=== PATIENT | female | born 1935 | race Caucasian/White ===

== ENCOUNTER 2017-03-09 06:43 | Observation (INO) | payer MEDICARE ==
[2017-03-09] MEDS ORDERED: Acetaminophen/Codeine 30-300mg Tablet ONE (07:34)
[2017-03-09] MEDS ORDERED: hydrALAZINE 20 MG/ML VIAL ONE (07:34)
[2017-03-09] MEDS ORDERED: Ondansetron HCl/PF 4 MG/2 ML Vial ONE (07:34)
[2017-03-09] MEDS ORDERED: diphenhydrAMINE 50 MG/ML VIAL ONE (08:34)
[2017-03-09 09:14] LABS: Troponin I Less than 0.010 ng/mL (< 0.028)
[2017-03-09] MEDS ORDERED: Nitroglycerin 0.4 MG TAB (25 Tab Bottle) SL PRN (10:56)
[2017-03-09] MEDS ORDERED: hydrALAZINE 20 MG/ML VIAL SLOW IVP PRN (10:56)
[2017-03-09] MEDS ORDERED: Calcium Carbonate 500 MG ChewTAB PO PRN (10:56)
[2017-03-09] MEDS ORDERED: cloNIDine 0.1 MG TAB PO PRN (10:56)
[2017-03-09] MEDS ORDERED: Benzonatate 100 MG CAP PO PRN (10:56)
[2017-03-09] MEDS ORDERED: Senokot 8.6 MG TAB PO PRN ×2 (10:56)
[2017-03-09] MEDS ORDERED: Bisacodyl 5 MG TAB PO PRN ×2 (10:56)
[2017-03-09] MEDS ORDERED: Mag-Al 1200 mg/1200 mg/30 ML UDCUP PO PRN (10:56)
[2017-03-09] MEDS ORDERED: Acetaminophen 325 MG TAB PO PRN (10:56)
[2017-03-09] MEDS ORDERED: Diabetic Tussin 200 MG/10 ML UDCUP PO PRN (10:56)
[2017-03-09] MEDS ORDERED: Lorazepam 1 MG TAB PO PRN (10:56)
[2017-03-09] MEDS ORDERED: Loratadine 10 MG TAB PO PRN (10:56)
[2017-03-09] MEDS ORDERED: Cyclobenzaprine 10 MG TAB PO SCH (11:30)
[2017-03-09] MEDS ORDERED: Sodium Chloride 0.9% 1,000 ML IV SCH (11:45)
[2017-03-09 11:51] VITALS: BMI 22.5
[2017-03-09] MEDS ORDERED: tiZANidine HCl 4 MG TAB PO PRN (11:55)
[2017-03-09 12:08] LABS: Iron 20 ug/dL (50-170)
[2017-03-09 12:11] LABS: Troponin I Less than 0.010 ng/mL (< 0.028)
[2017-03-09 12:24] LABS: Bilirubin Negative (Negative); Blood, Urine Small (Negative); Glucose, Urine (Dipstick) Negative (Negative); Ketone, Urine Negative (Negative); Nitrite Negative (Negative); Protein, Urine (Dipstick) 30 mg/dL (Neg-Trace); Urobilinogen 0.2 mg/dL (0.2-1.0)
[2017-03-09 12:26] LABS: Bacteria/HPF None Seen HPF (None Seen); Hyaline Casts/LPF 4-6 HYALINE CAST LPF (0-3 Hyaline); RBC/HPF 21-50 HPF (0-3); Squamous Epithelial 0-3 HPF (0-3); WBC/HPF 0-3 HPF (0-3)
--- NOTE | 2017-03-09 14:19 | HP ---
DATE OF ADMISSION: 03/09/2017 PRIMARY CARE PHYSICIAN: Dr. Masood Murphy. PRIMARY MARINE FARMER: Dr. Reddy. CHIEF COMPLAINT: Chest pain, lower back pain and leg discomfort on the right side for about 1 month . HISTORY OF PRESENTING ILLNESS: Ms. Mckinley is a 81-year-old female with past medical history of co ronary artery disease, peripheral vascular disease, chronic back pain and ongoing tobacco abuse marci g with hypertension, who presented to the emergency room with the above-mentioned complaints. Histo ry is mainly obtained by the patient herself and electronic medical records have been reviewed. Vito e has been discussed with the admitting ER physician, Dr. Lopez. The patient was last admitted t o a facility earlier this year in 09/2016, at which time she underwent placement of LINQ cardiac mon itor for complaints of syncope. The patient reports that for the last month or so she has been having on and off sharp chest pain, w hich are very severe. She reports it as a stabbing pain located in the center of her left chest wit hout any radiation. It is not associated with any shortness of breath, diaphoresis. It is nonradia ting. Nitroglycerin seems to help with the pain. She is also getting worsening of her chronic lowe r back pain and leg cramps with this pain. She presented to [facility] with this c hest pain today. The patient is somewhat of a poor historian and is rather uncomfortable with leg s pasms at this time to provide much of other history. However, she denies any recent illnesses. She continues to smoke one pack of cigarettes per day and reports some nonproductive cough. In the emergency room, her cardiac enzymes were unremarkable as well as her 12-lead EKG. She receiv ed nitroglycerin and aspirin in the Emergency Room and was transferred to our facility for further e valuation and care. Now, she is being admitted for rule out ACS. The patient had one episode of vo miting in the emergency room. She does report poor appetite, but no abdominal symptoms at home. Sh e reports compliance to her medications. PAST MEDICAL HISTORY: 1. History of coronary artery disease, status post RCA stenting in 11/2015. 2. History of angina. 3. History of chronic diastolic congestive heart failure. 4. History of recurrent fall. 5. Tobacco abuse. 6. Hypertension. PAST SURGICAL HISTORY: Appendectomy, hysterectomy, bilateral hip surgery. PSYCHIATRIC HISTORY: Anxiety. SOCIAL HISTORY: She lives alone, but her son lives close by. She continues to smoke one pack of ci garettes per day. No history of drug or alcohol abuse. FAMILY HISTORY: She denies any history of coronary artery disease or stroke running in her family. CURRENT MEDICATIONS: As listed per the ER record include Plavix 75 mg daily, metoprolol tartrate 12 .5 mg b.i.d., aspirin 81 mg daily, Protonix 40 mg daily, atorvastatin 10 mg daily, gabapentin 300 mg daily, triamterene /hydrochlorothiazide 37.5/25 mg daily, and sublingual nitroglycerin every 5 soledad gem as needed. ALLERGIES: Include ALENDRONATE, CELEXA, SULFONAMIDE, TRAMADOL, VITAMIN D3. REVIEW OF SYSTEMS: The following complete review of systems was negative, unless otherwise mentione d in the HPI or below: CONSTITUTIONAL: Weight loss or gain, ability to conduct usual activities. SKIN: Rash, itching. EYES: Double vision, pain. ENT/MOUTH: Nose bleeding, neck stiffness, pain, tenderness. CARDIOVASCULAR: Palpitations, dyspnea on exertion, orthopnea. RESPIRATORY: Shortness of breath, wheezing, cough, hemoptysis, fever or night sweats. GASTROINTESTINAL: Poor appetite, abdominal pain, heartburn, nausea, vomiting, constipation, or diar holland. GENITOURINARY: Urgency, frequency, dysuria, nocturia. MUSCULOSKELETAL: Pain, swelling. NEUROLOGIC/PSYCHIATRIC: Anxiety, depression. ALLERGY/IMMUNOLOGIC: Skin rash, bleeding tendency. It is negative except for those mentioned in the history and physical. LABORATORY DATA: Her CBC shows WBCs at 6.3 with platelet count of 252, hemoglobin 9.2, which is lar kilo microcystic. Serum chemistry shows sodium at 125, chloride 93, bicarbonate 16, BUN 22, creatin ine 1.19, blood sugar is 110, CK-MB is 4.4 and troponin is less than 0.010 x2. BNP is 102. Chest x -ray by my review was negative for any pleural effusion or infiltrate or edema. A 12-lead EKG showed normal sinus rhythm at 77 beats per minute with normal ST segments and normal T waves. PHYSICAL EXAMINATION: VITAL SIGNS: Most recent include blood pressure 176/74, pulse of 92, respirations 18, temperature 9 7.9, saturating 94% on room air, blood pressure upon presentation was elevated to 203/87. GENERAL: The patient is very uncomfortable. She is fidgety and rubbing her right side nonstop. Sh rajat is awake, alert, oriented x3, in no acute distress. HEENT: Mucous membranes slightly dry. No oropharyngeal exudate or erythema. Head is normocephalic , atraumatic. Pupils equal, reactive to light and accommodation. Extraocular movements intact. NECK: Supple without any lymphadenopathy, JVD or bruit. CHEST: Clear to auscultation without any wheezing, rales or rhonchi. CARDIOVASCULAR: Rate and rhythm is regular without any murmur, rubs or gallops. ABDOMEN: Soft, nontender, nondistended with positive bowel sounds. EXTREMITIES: Free of any cyanosis, clubbing, or edema. Her right thigh examination is unremarkable . No swelling, no erythema, no warmth. She reports that her symptoms get better when she walks. N o muscle twitching or myoclonus noticed. NEUROLOGIC: Nonfocal. PSYCHIATRIC: Anxiety noticed. SKIN: Free of any rashes or bruises. Feels warm and dry to touch. VASCULAR: +2 pedal pulses felt bilaterally. IMPRESSION AND PLAN: 1. Chest pain. Given the patient's history of coronary artery disease, we will admit her to teleme try unit. We will order a stress test for her. Her last stress test is unknown. Continue to trend serial cardiac enzymes. Continue Plavix and add full dose aspirin for now. We will continue her b eta yesenia as well. The patient will be benefited by starting BRISEIDA inhibitor. We will not do so at this time given acute renal insufficiency. 2. Hyponatremia. This is likely hypovolemic hyponatremia along with the use of hydrochlorothiazide . We will hold HCTZ and triamterene for now and resuscitate her with gentle IV fluid hydration with a maximum rate of sodium correction at 10 mEq per day. We will also check serum and urine osmolali ty and consult Nephrology to follow along. 3. Acute renal insufficiency. It is likely secondary to poor p.o. intake as the patient has been r ather sick last few days. We will provide her with IV fluids and monitor her renal function closely . Avoid diuretics at this time and any other nephrotoxic medications. Once again, we are consultin g Nephrology for further recommendations. 4. Uncontrolled hypertension. We will resume her home medications with the exception of diuretics and add p.r.n. medications. We will try to optimize her blood pressure for improvement of her sympt oms. 5. Dyslipidemia. Continue with atorvastatin. 6. History of chronic diastolic congestive heart failure. The patient at this time actually appear s hypovolemic. We will provide her with IV fluids and monitor fluid status closely. Her last echoc ardiogram was done last year, which showed grade I/III diastolic dysfunction with adequate ejection fraction. 7. Myalgia. Check her and rule out for influenza and we will add a muscle relaxant trial. Also, s he seems to have significant iron deficiency anemia, which can be exacerbating her symptoms. We janel l check iron levels and supplement with IV iron as necessary. 8. Tobacco abuse. The patient has been counseled. We will start her nicotine patch while she is i n the hospital. 9. Chronic low back pain. 10. Code status: FULL CODE. Discussed with the patient. DISPOSITION: The patient is currently being admitted to the hospital for rule out ACS as well as ac hoopa renal insufficiency and hyponatremia. She will be monitored on telemetry unit. Further managem ent will depend upon her clinical course. She is currently observation status.
[2017-03-09 14:52] LABS: Troponin I Less than 0.010 ng/mL (< 0.028)
[2017-03-09] MEDS ORDERED: Atorvastatin Calcium 10 MG TAB PO SCH (21:00)
[2017-03-09] MEDS: Famotidine 20 MG TAB PO SCH (21:20)
[2017-03-09] MEDS: Metoprolol Tartrate 25 MG TAB PO SCH (21:20)
[2017-03-09] MEDS: Gabapentin 300 MG CAP PO SCH (21:20)
[2017-03-10 05:32] LABS: #Basophils 0.1 thou/uL (0.0-0.2); #Eosinphils 0.1 thou/uL (0.0-0.7); #Lymphocytes 1.2 thou/uL (1.20-3.40); #Monocytes 0.4 thou/uL (0.11-0.59); #Neutrophils 3.9 thou/uL (1.40-6.50); %Basophils 0.9 % (0.0-1.0); %Eosinophils 0.9 % (0.0-10.0); %Monocytes 6.9 % (0.0-10.0); Hematocrit 26.8 % (36.0-47.0); Red Blood Cell (RBC) Count 3.37 mill/uL (4.20-5.40); White Blood Cell (WBC) Count 5.6 thou/uL (4.8-10.8)
[2017-03-10 06:03] LABS: Anion Gap 12 mmol/L (10-20); BUN (Urea Nitrogen) 12 mg/dL (9.8-20.1); Calc. Creatinine Clearance 52 mL/min (70-130); Calcium 8.6 mg/dL (7.8-10.44); Carbon Dioxide 22 mmol/L (23-31); Chloride 99 mmol/L (98-107); Estimated GFR-MDRD 63
--- NOTE | 2017-03-10 07:00 | CON ---
DATE OF CONSULTATION: 03/09/2017 CONSULTING PHYSICIAN: Rhonda Cardona M.D. REQUESTING PHYSICIAN: Sydney Martinez MD REASON FOR CONSULTATION: Hyponatremia. IMPRESSION: Hyponatremia. This is likely multifactorial including, but not limited to the followin g potential etiologies: A. Syndrome of inappropriate antidiuretic hormone secretion given the chemistry of . B. Potential effect of hydrochlorothiazide compounding the syndrome of inappropriate antidiuretic h ormone in this patient. C. Possible component of intravascular depletion in the context of , syndrome of inappro priate antidiuretic hormone. PLAN: 1. Discontinue IV fluid. 2. Free water restriction. 3. Would this patient's diet in order to increase osmolar intake by mouth; therefore, the pat ient is to receive a high protein diet. 4. If the patient's sodium level begins to decrease any further, administration, but at this point, no indication for such at this point. 5. If the patient's SIADH does not respond to conservative management, further imaging studies of t he chest could be carried out to rule out any potential abnormal lesions/ . HISTORY: This is a 81-year-old female patient transferred over to us at [facility] with the compl aint of chest pain and was noted with a very low sodium of 125. The patient has not been eating atif y well. The patient noted to be on triamterene and hydrochlorothiazide combo. As a result of these findings, the decision has been taken to involve Renal in the management of this case. The patient denies nausea, vomiting, or diarrhea. possibility of such low sodium level in the past. PAST MEDICAL HISTORY: Significant for coronary artery disease, status post stent, chronic diastolic congestive heart failure, recurrent tobacco abuse, and hypertension. CURRENT MEDICATIONS: Have been reviewed and are as documented on [employer]. FAMILY HISTORY: No family history of kidney disease. SOCIAL HISTORY: The patient continues to be a tobacco user. ALLERGIES: ALENDRONATE SODIUM, CITALOPRAM, SULFACETEMIDE, TRAMADOL, VITAMIN D3. REVIEW OF SYSTEMS: As documented in the body of the history. The other systems were reviewed and w ere found not to be significantly related to the presenting illness. PHYSICAL EXAMINATION: VITAL SIGNS: The patient was noted to be with the following vital signs: Afebrile with temperature 98.4, pulse 82, blood pressure 190/78 to 148/65, respiratory rate of 18. HEENT: Unremarkable. Somewhat dry mucosa. NECK: Supple. CARDIOVASCULAR SYSTEM: First and second heart sounds were heard. RESPIRATORY SYSTEM: Clear to auscultation. DIGESTIVE SYSTEM: Revealed a benign abdomen with positive bowel sounds. EXTREMITIES: No peripheral edema. SKIN: No new gross rash. LYMPHATICS: No peripheral lymphadenopathy. SUMMARY: A 81-year-old female patient who presented here with worsening hyponatremia. Thank you for this consultation.
[2017-03-10] MEDS: Famotidine 20 MG TAB PO SCH (08:29)
[2017-03-10] MEDS: Gabapentin 300 MG CAP PO SCH (08:29)
[2017-03-10] MEDS: Metoprolol Tartrate 25 MG TAB PO SCH ×2 (08:30→12:23)
[2017-03-10] MEDS ORDERED: IRON SUCROSE COMPLEX 100 MG/5 ML SLOW IVP SCH (08:30)
[2017-03-10] MEDS: Enoxaparin Sodium 40 MG/0.4 ML SYRINGE SC SCH ×2 (08:30→12:21)
[2017-03-10] MEDS ORDERED: Clopidogrel Bisulfate 75 MG TAB PO SCH (09:00)
[2017-03-10] MEDS ORDERED: Nicotine 21 MG PATCH TD SCH (09:00)
[2017-03-10] MEDS ORDERED: Aspirin 325 mg Enteric Coated Tablet PO SCH (09:00)
[2017-03-10] MEDS ORDERED: Sodium Ferric Gluconate 250 MG in Sodium Chloride 0.9% 100 ML IVPB SCH (09:15)
[2017-03-10] MEDS ORDERED: ADENOSINE 60 MG/20 ML VIAL ONE (15:40)
--- NOTE | 2017-03-10 16:07 | PDOC.PN ---
- Subjective Encounter Start Date: 03/10/17 Encounter Start Time: 16:05 Subjective: feels much better. no more chest pain or leg pain - Objective MAR Reviewed: Yes Vital Signs & Weight: Vital Signs (12 hours) Temp Pulse Resp BP BP Pulse Ox 03/10/17 11:56 97.6 F 86 24 H 134/56 L 03/10/17 08:00 99.1 F 103 H 24 H 03/10/17 07:24 99.1 F 103 H 24 H 124/59 L 92 L 03/10/17 04:25 92 18 113/56 L 92 L Weight Weight 139 lb 11.2 oz I&O: 03/09/17 03/10/17 03/11/17 06:59 06:59 06:59 Intake Total 650 480 Output Total 1000 Balance -350 480 Result Diagrams: 03/10/17 04:53 03/10/17 13:57 Additional Labs: Microbiology 03/09/17 12:10 Nasopharyngeal swab Influenza Types A,B Direct EIA - Final Laboratory Tests 03/09/17 03/09/17 03/09/17 04:30 08:37 08:37 Sodium 125 L Creatinine 1.19 H Serum Osmolality 265 L Iron TIBC % Saturation Troponin I Less than 0.010 Urine Osmolality Urine Sodium 03/09/17 03/09/17 03/09/17 11:39 11:39 12:10 Sodium Creatinine Serum Osmolality Iron 20 L TIBC 471 % Saturation 4 L Troponin I Less than 0.010 Urine Osmolality 453 Urine Sodium 03/09/17 03/09/17 03/09/17 12:10 14:14 16:39 Sodium 126 L Creatinine Serum Osmolality Iron TIBC % Saturation Troponin I Less than 0.010 Urine Osmolality Urine Sodium 56 03/10/17 03/10/17 03/10/17 04:53 12:07 13:57 Sodium 129 L 132 L 129 L Creatinine 0.87 Serum Osmolality Iron TIBC % Saturation Troponin I Urine Osmolality Urine Sodium Phys Exam - Physical Examination Constitutional: NAD HEENT: PERRLA, moist MMs, sclera anicteric, oral pharynx no lesions Neck: no nodes, no JVD, supple, full ROM Respiratory: no wheezing, no rales, no rhonchi, clear to auscultation bilateral Cardiovascular: RRR, no significant murmur, no rub, gallop Gastrointestinal: soft, non-tender, no distention, positive bowel sounds Musculoskeletal: no edema, pulses present Neurological: non-focal, normal sensation, moves all 4 limbs Psychiatric: normal affect, A&O x 3 Skin: no rash Dx/Plan (1) Chest pain Code(s): R07.9 - CHEST PAIN, UNSPECIFIED Status: Acute (2) LETICIA (acute kidney injury) Code(s): N17.9 - ACUTE KIDNEY FAILURE, UNSPECIFIED Status: Acute Comment: improved (3) Hyponatremia Code(s): E87.1 - HYPO-OSMOLALITY AND HYPONATREMIA Status: Acute (4) CAD (coronary artery disease) Code(s): I25.10 - ATHSCL HEART DISEASE OF [place] CORONARY ARTERY W/O ANG PCTRS Status: Chronic (5) Chronic diastolic heart failure Code(s): I50.32 - CHRONIC DIASTOLIC (CONGESTIVE) HEART FAILURE Status: Chronic (6) Dyslipidemia Code(s): E78.5 - HYPERLIPIDEMIA, UNSPECIFIED Status: Chronic (7) Hypertension Code(s): I10 - ESSENTIAL (PRIMARY) HYPERTENSION Status: Chronic Qualifiers: (8) Iron deficiency anemia Code(s): D50.9 - IRON DEFICIENCY ANEMIA, UNSPECIFIED Status: Chronic (9) Tobacco abuse Code(s): Z72.0 - TOBACCO USE Status: Chronic - Plan DVT proph w/SCDs Low iron will give IV Iron. -: DC HCTZ for now.add lasix in place.sodium better. appreciate nephrology rec -: Stress test results pending. -: hemodynmically stable -: rest of home meds as below. * . Review of Systems - Review of Systems Constitutional: negative: Fever, Chills, Sweats, Weakness, Malaise, Other Eyes: negative: Pain, Vision Change, Conjunctivae Inflammation, Eyelid Inflammation, Redness, Other ENT: negative: Ear Pain, Ear Discharge, Nose Pain, Nose Discharge, Nose Congestion, Mouth Pain, Mouth Swelling, Throat Pain, Throat Swelling, Other Respiratory: negative: Cough, Dry, Shortness of Breath, Hemoptysis, SOB with Excertion, Pleuritic Pain, Sputum, Wheezing Cardiovascular: negative: Chest Pain, Palpitations, Orthopnea, Paroxysmal Noc. Dyspnea, Edema, Light Headedness, Other Gastrointestinal: negative: Nausea, Vomiting, Abdominal Pain, Diarrhea, Constipation, Melena, Hematochezia, Other Genitourinary: negative: Dysuria, Frequency, Incontinence, Hematuria, Retention , Other Musculoskeletal: negative: Neck Pain, Shoulder Pain, Arm Pain, Back Pain, Hand Pain, Leg Pain, Foot Pain, Other Neurological: negative: Weakness, Numbness, Incoordination, Change in Speech, Confusion, Seizures, Other - Medications/Allergies Allergies/Adverse Reactions: Allergies Allergy/AdvReac Type Severity Reaction Status Date / Time alendronate sodium Allergy joint pains Verified 06/12/16 14:33 citalopram Allergy dizziness Verified 06/12/16 14:33 sulfacetamide Allergy Verified 06/12/16 14:33 tramadol Allergy headaches Verified 06/12/16 14:33 vit d3 Allergy bones hurt Uncoded 06/12/16 14:33 Medications: Current Medications Acetaminophen (Tylenol) 650 mg PO Q4H PRN PRN Reason: Headache/Fever or Pain Last Admin: 03/10/17 12:16 Dose: 650 mg Al Hydroxide/Mg Hydroxide (Maalox) 30 ml PO Q6H PRN PRN Reason: Heartburn or Indigestion Aspirin (Ecotrin) 325 mg PO DAILY [facility] Last Admin: 03/10/17 08:29 Dose: 325 mg Atorvastatin Calcium (Lipitor) 10 mg PO HS [facility] Last Admin: 03/09/17 21:20 Dose: 10 mg Benzonatate (Tessalon) 100 mg PO Q4H PRN PRN Reason: Cough Bisacodyl (Dulcolax) 10 mg PO DAILYPRN PRN PRN Reason: Constipation Bisacodyl (Dulcolax) 10 mg PO DAILYPRN PRN PRN Reason: Constipation Calcium Carbonate (Tums) 1,000 mg PO Q4H PRN PRN Reason: Heartburn or Indigestion Clonidine (Catapres) 0.1 mg PO Q4H PRN PRN Reason: Systolic BP > 160 Last Admin: 03/09/17 16:33 Dose: 0.1 mg Clopidogrel Bisulfate (Plavix) 75 mg PO DAILY [facility] Last Admin: 03/10/17 08:30 Dose: 75 mg Enoxaparin Sodium (Lovenox) 40 mg SC 0900 [facility] Last Admin: 03/10/17 12:21 Dose: 40 mg Famotidine (Pepcid) 20 mg PO BID [facility] Last Admin: 03/10/17 08:29 Dose: 20 mg Gabapentin (Neurontin) 300 mg PO BID [facility] Last Admin: 03/10/17 08:29 Dose: 300 mg Guaifenesin (Robitussin Sf) 200 mg PO Q4H PRN PRN Reason: Cough Hydralazine HCl (Apresoline) 10 mg SLOW IVP Q4H PRN PRN Reason: Systolic BP > 170 Loratadine (Claritin) 10 mg PO DAILYPRN PRN PRN Reason: Sinus Symptoms Lorazepam (Ativan) 1 mg PO Q4H PRN PRN Reason: Anxiety/Agitation Metoprolol Tartrate (Lopressor) 12.5 mg PO BID [facility] Last Admin: 03/10/17 12:23 Dose: 12.5 mg Nicotine (Nicoderm Patch) 21 mg TD DAILY [facility] Last Admin: 03/10/17 12:17 Dose: Not Given Nitroglycerin (Nitrostat) 0.4 mg SL Q5MIN PRN PRN Reason: Chest Pain Pantoprazole Sodium (Protonix) 40 mg PO DAILY [facility] Last Admin: 03/10/17 08:29 Dose: 40 mg Senna (Senokot) 2 tab PO HSPRN PRN PRN Reason: Constipation Sodium Chloride (Flush - Normal Saline) 10 ml IVF Q12HR [facility] Last Admin: 03/10/17 12:17 Dose: 10 ml Sodium Chloride (Flush - Normal Saline) 10 ml IVF PRN PRN PRN Reason: Saline Flush Tizanidine HCl (Zanaflex) 4 mg PO TID PRN PRN Reason: back pain
--- NOTE | 2017-03-10 16:19 | NM ---
EXAM: NUCLEAR MEDICINE CARDIAC STRESS WITH EF AND WALL MOTION: HISTORY: Chest pain. COMPARISON: None. TECHNIQUE: The patient was administered 9 mCi of Technetium 99m sestamibi for rest imaging and 27 mCi of Techne tium 99m sestamibi for stress imaging. Cardiac gating is performed. FINDINGS: Homogeneous distribution of the radiotracer in the left ventricle. No reversibility or filling defe ct. TID is 1.24. End-diastolic volume is 83 mL. End-systolic volume is 21 mL. CARDIAC GATING: Normal motion and thickening. Ejection fraction is 75%. IMPRESSION: 1. No reversibility. No fixed defect. 2. Ejection fraction is 75%. Normal thickening and motion. 3. TID at the upper limits of normal. POS: BROCK
[2017-03-10 16:21] VITALS: BP 115/59; TEMP 98.5
--- NOTE | 2017-03-10 18:46 | PRG ---
DATE OF SERVICE: 03/10/2017 SUBJECTIVE: The patient was seen and examined, seems to be doing much better. Noted with the follo wing vital signs. OBJECTIVE: VITAL SIGNS: Afebrile with temperature 98.5, pulse 62, respiratory rate of 16, O2 sat of 94% with a blood pressure of 115/59. HEENT: Unremarkable with moist oral mucosa. No conjunctival injection or icterus. NECK: Supple. CARDIOVASCULAR SYSTEM: First and second heart sounds were heard. RESPIRATORY SYSTEM: Clear to auscultation. DIGESTIVE SYSTEM: Revealed a benign abdomen with positive bowel sounds. EXTREMITIES: No peripheral edema. SKIN: No new gross rash. LYMPHATICS: No peripheral lymphadenopathy. LABORATORY DATA: Laboratory work revealed a sodium of 129-132. IMPRESSION: 1. Hyponatremia, likely in the context of syndrome of inappropriate antidiuretic hormone secretion, compounded by the use of hydrochlorothiazide. 2. Iron deficiency anemia. PLAN: 1. The patient has been counseled on the need to cut back on excessive amount of water intake. 2. Increase protein intake in the way of animal meat. 3. Outpatient follow up with me within the next 2-4 weeks. 4. The patient will benefit from iron supplementation.
--- NOTE | 2017-03-11 00:46 | DIS ---
ADMISSION DATE: 03/09/2017 DISCHARGE DATE: 03/10/2017 CONDITION AT THE TIME OF DISCHARGE: Stable and improved. DISCHARGE DIAGNOSES: 1. Atypical chest pain, acute coronary syndrome ruled out. 2. Hyponatremia secondary to diuretic use. 3. Acute kidney insufficiency secondary to dehydration. 4. History of coronary artery disease. 5. History of chronic diastolic congestive heart failure. 6. Hypertension. 7. Tobacco abuse. 8. Iron deficiency anemia. PRIMARY CARE PHYSICIAN: Dr. Masood Murphy. CONSULTATIONS INHOUSE: Include Nephrology, Dr. Ellis. PROCEDURES IN THE HOSPITAL: Include nuclear medicine stress test, which does not show any reversibi lity or fixed defect. EF is estimated at 75%. ADMISSION HISTORY: Ms. Mckinley is a very pleasant 81-year-old female with past medical history of coronary artery disease, who came to the emergency room for complaints of chest pain, lower back ivelisse n and leg discomfort. She was found to be hyponatremic in the emergency room as well as with eviden ce of acute renal insufficiency. Her sodium upon presentation was 126 with a creatinine of 1.19. S he was admitted on telemetry unit for further workup and ACS rule out. She did not have any changes on EKG consistent with ACS. Please see admission history and physical for further details. HOSPITAL COURSE: The patient continued to be in telemetry monitoring and her symptoms improved quit e effectively with the addition of normal saline and correction of her sodium. Nephrology was consu lted with regards to her hyponatremia and it was thought secondary to diuretics triamterene and hydr ochlorothiazide that she was taking at home. She was taken off of it and was started on Lasix. Her sodium improved from 126 to 132 and then 129 prior to discharge. She underwent nuclear medicine stress test, which was negative for ACS. She was instructed to follo w up with her primary care physician with regards to this. She was treated with aspirin full dose a long with continuation of her home dosages of Plavix and Lipitor as well as beta-yesenia in the hosp ital. She was started on a nicotine patch and tobacco abuse, counseling was provided. She was found to be deficient in iron. Her iron levels were low at 20 with percentage saturation lo w at 4. She received 200 mg of iron sucrose IV. At this time, she is hemodynamically stable and ACS was ruled out. Patient was seen and examined pr ior to discharge. Please see hospitalist progress note from today's date for further detail albertinapaul mari [id number] interaction. At this time, she will be discharged back to her primary care ragini waggoner. She will also follow up with Nephrology with outpatient BMP in 1 week.
[2017-03-11] MEDS ORDERED: Furosemide 20 MG TAB PO SCH (09:00)
== END 2017-03-10 17:55 | disposition home or self-care (01) ==
LOC: ERS 06:43 → 2SW 10:18
PROVIDERS: ADMIT Internal Medicine; ATTEND Internal Medicine
DX: R07.89 Other chest pain (principal); E87.1 Hypo-osmolality and hyponatremia; N17.9 Acute kidney failure, unspecified; E86.0 Dehydration; I25.10 Atherosclerotic heart disease of native coronary artery without angina pectoris; I11.0 Hypertensive heart disease with heart failure; I50.32 Chronic diastolic (congestive) heart failure; D50.9 Iron deficiency anemia, unspecified; G89.29 Other chronic pain; I73.9 Peripheral vascular disease, unspecified; F17.210 Nicotine dependence, cigarettes, uncomplicated; M79.1 Myalgia; M54.5 Low back pain; Z79.02 Long term (current) use of antithrombotics/antiplatelets; Z79.82 Long term (current) use of aspirin; Z79.899 Other long term (current) drug therapy; Z88.8 Allergy status to other drugs, medicaments and biological substances; Z95.818 Presence of other cardiac implants and grafts; Z90.49 Acquired absence of other specified parts of digestive tract; Z90.710 Acquired absence of both cervix and uterus; Z98.890 Other specified postprocedural states; Z91.81 History of falling
CPT/HCPCS: 78452; 80048; 83540; 83550; 83930; 83935; 84295 ×2; 84300; 84484; 85025; 87804 ×2; 93005; 93017; 96361; 96365; 96366; 96367; 96372; 96375; 97139 ×2; 99285; 99406; A9500; G0378; 36415; 81003; 81015; A4216; J0153; J0360; J1200; J1650; J2405; J2916; J7050

== ENCOUNTER 2017-03-25 14:03 | Outpatient (CLI) | payer MEDICARE ==
[2017-03-25 15:00] LABS: Hematocrit 31.4 % (36.0-47.0); Mean Platelet Volume 7.5 fL (7.4-10.4); Red Blood Cell (RBC) Count 3.75 mill/uL (4.20-5.40); White Blood Cell (WBC) Count 7.9 thou/uL (4.8-10.8)
[2017-03-25 15:22] LABS: Anion Gap 11 mmol/L (10-20); BUN (Urea Nitrogen) 22 mg/dL (9.8-20.1); Calc. Creatinine Clearance 0 mL/min (70-130); Calcium 8.8 mg/dL (7.8-10.44); Carbon Dioxide 23 mmol/L (23-31); Chloride 105 mmol/L (98-107); Estimated GFR-MDRD 40
[2017-03-25 15:26] LABS: Bilirubin Negative (Negative); Blood, Urine Moderate (Negative); Glucose, Urine (Dipstick) Negative (Negative); Ketone, Urine Negative (Negative); Nitrite Negative (Negative); Protein, Urine (Dipstick) Negative (Neg-Trace); Urobilinogen 0.2 mg/dL (0.2-1.0)
[2017-03-25 15:35] LABS: Bacteria/HPF None Seen HPF (None Seen); Hyaline Casts/LPF 0-3 HYALINE CAST LPF (0-3 Hyaline); Squamous Epithelial 0-3 HPF (0-3); WBC/HPF 0-3 HPF (0-3)
== END 2017-03-25 14:04 | disposition home or self-care (01) ==
LOC: LABBT 14:03
PROVIDERS: ATTEND Orthopaedic Surgery
DX: Z01.818 Encounter for other preprocedural examination (principal); M70.21 Olecranon bursitis, right elbow
CPT/HCPCS: 80048; 81001; 85027

== ENCOUNTER 2017-03-27 07:54 | Day surgery (SDC) | payer MEDICARE ==
[2017-03-25 14:16] VITALS: BMI 21.6
[2017-03-27] MEDS ORDERED: Clindamycin/D5W 600 mg/50 ml Premix Bag ONE (08:10)
[2017-03-27] MEDS ORDERED: Bupivacaine/Epinephrine 0.25% 30 ML VIAL ONE (09:18)
--- NOTE | 2017-03-27 11:24 | OP ---
DATE OF PROCEDURE: 03/27/2017 PREOPERATIVE DIAGNOSIS: Right olecranon bursitis. POSTOPERATIVE DIAGNOSIS: Right olecranon bursitis. PROCEDURE PERFORMED: 1. Excision hemorrhagic right olecranon bursitis. 2. Long arm splint application. STAFF: Ishan Correa M.D. STEAM TURBINE ASSEMBLER: None. ANESTHESIA: Grant Gregg. The patient received a LMA. She also got 20 mL of 0.25% Marcaine with epin ephrine. ESTIMATED BLOOD LOSS: 20 mL. TOURNIQUET TIME: 30 minutes. ANTIBIOTICS: Ancef, clindamycin 600. PATHOLOGY SPECIMEN: Hemorrhagic bursa. HISTORY OF PRESENT ILLNESS: Ms. Mckinley is a pleasant 81-year-old female who presented with a right olecranon bursitis. The patient had this for over a year, increasing in the last 3 months. The pat ient is a smoker. She received injections and continued to have pain. The patient desired excision. I discussed with patient the risks and benefits of surgery to include pain, scar, bleeding, infecti on, damage to vital structures, recurrence, nonhealing wound and need for further surgeries. I discu ssed that given her smoking she had an increased risk of her wound not healing. I discussed that I w ould have to excise potentially some skin given that the bursa has acted as a soft tissue catcher plug. She understood the risks and benefits and elected to proceed. PROCEDURE IN DETAIL: After timeout, the patient's right upper extremity was designated as the operat manav site, based on sight, consents, and markings. After completion of timeout, the tourniquet was br ought up and left up for 30 minutes. I made a midline incision, came down on the bursal sac, I cut i nto it, there was hemorrhagic fluid inside the bursal sac, I then used skin trying to stay pulled tra ction on the bursal sac, trying to stay on the bursa to make as thick of skin plane as possible. I d issected medially and laterally, came down on the triceps, used that to plane laterally to come under neath and excised the entire bursa in whole. I sent it off for pathologic specimen. I then curetted the bony and soft tissues to help with adherence. I used 0 and 2-0, I used the skin and placed ramírez lines and used a transverse incision to help to decrease the size, making an oblique incision. Afte r completion of that, I left her in flexion to close and made sure she had excess skin to help with t he closure and have no tension on the skin to help with healing. I then closed with 0, 2-0, and 3-0 nylon horizontal mattress. I let the tourniquet down after I injected 20 mL of Marcaine. The patien juan carlos was placed in a long arm splint. She will remain in a long arm splint until I see her back in the office in 7-10 days. She has Tylenol #3 at home. She can keep it elevated.
[2017-03-27] MEDS ORDERED: Ondansetron HCl/PF 4 MG/2 ML Vial ONE (16:35)
[2017-03-27] MEDS ORDERED: Propofol 200 MG/20 ML VIAL ONE (16:35)
== END 2017-03-27 11:00 | disposition home or self-care (01) ==
LOC: SDC 07:54
PROVIDERS: ATTEND Orthopaedic Surgery
PROC: 0MB30ZZ Excision of Right Elbow Bursa and Ligament, Open Approach (ICD-10-PCS; principal; 2017-03-27)
DX: M70.21 Olecranon bursitis, right elbow (principal); F17.200 Nicotine dependence, unspecified, uncomplicated; M19.90 Unspecified osteoarthritis, unspecified site; Z79.82 Long term (current) use of aspirin; Z79.02 Long term (current) use of antithrombotics/antiplatelets; Z79.899 Other long term (current) drug therapy; Z88.5 Allergy status to narcotic agent; Z88.2 Allergy status to sulfonamides; Z88.8 Allergy status to other drugs, medicaments and biological substances; Z96.1 Presence of intraocular lens; Z96.643 Presence of artificial hip joint, bilateral; Z90.49 Acquired absence of other specified parts of digestive tract; Z90.710 Acquired absence of both cervix and uterus; Z98.890 Other specified postprocedural states
CPT/HCPCS: 88305; J2405; J2704; J3490

== ENCOUNTER 2017-06-29 01:48 | Inpatient (IN) | payer MEDICARE ==
[2017-06-29 02:40] LABS: ALT (SGPT) 9 U/L (8-55); AST (SGOT) 24 U/L (5-34); Albumin 4.1 g/dL (3.4-4.8); Alkaline Phosphatase 70 U/L (40-150); Anion Gap 18 mmol/L (10-20); BUN (Urea Nitrogen) 29 mg/dL (9.8-20.1); Bilirubin, Total 0.2 mg/dL (0.2-1.2); CK (CPK) 91 U/L (29-168); Calc. Creatinine Clearance 0 mL/min (70-130); Calcium 9.2 mg/dL (7.8-10.44); Carbon Dioxide 20 mmol/L (23-31); Chloride 91 mmol/L (98-107); Estimated GFR-MDRD 42; Globulin 3.2 g/dL (2.4-3.5); Glucose 132 mg/dL (83-110); Potassium 4.7 mmol/L (3.5-5.1); Protein, Total 7.3 g/dL (6.0-8.3); Sodium 124 mmol/L (136-145)
[2017-06-29 02:45] LABS: CKMB 3.1 ng/mL (0-6.6); Troponin I Less than 0.010 ng/mL (< 0.028)
[2017-06-29 02:51] LABS: Hemoglobin 8.3 g/dL (12.0-16.0); Mean Corpuscular HGB CONC 31.3 g/dL (32.0-36.0); Mean Corpuscular Volume 73.3 fl (81.0-99.0); Mean Platelet Volume 7.4 fL (7.4-10.4); Platelet Count 382 thou/uL (130-400); RBC Distribution Width 16.8 % (11.5-14.5); Red Blood Cell (RBC) Count 3.59 mill/uL (4.20-5.40); White Blood Cell (WBC) Count 10.6 thou/uL (4.8-10.8)
[2017-06-29 03:11] LABS: Anisocytosis MODERATE=16-30 cells (100X) (0-5/hpf); Band 5 % (5-11); Elliptocytes SLIGHT = 2-5 cells (100X) (0-1/hpf); Helmet Cells SLIGHT = 2-5 cells (100X) (0-1/hpf); Lymphocytes 11 % (21-51); MDiff Complete? YES; Monocytes 4 % (0-10); Neutrophil 80 % (42-75)
[2017-06-29] MEDS ORDERED: Nitroglycerin 2% Ointment 1 INCH/1 GM Packet ONE (03:21)
[2017-06-29] MEDS ORDERED: Aspirin 325 MG TAB ONE (03:21)
[2017-06-29] MEDS ORDERED: Senokot 8.6 MG TAB PO PRN (04:33)
[2017-06-29] MEDS ORDERED: Nitroglycerin 0.4 MG TAB (25 Tab Bottle) PO PRN (04:33)
[2017-06-29] MEDS ORDERED: Guaifenesin DM 100-10/5 ML UDCUP PO PRN (04:33)
[2017-06-29] MEDS ORDERED: tiZANidine HCl 4 MG TAB PO PRN (04:33)
[2017-06-29 05:55] LABS: Troponin I Less than 0.010 ng/mL (< 0.028)
[2017-06-29] MEDS ORDERED: Ondansetron HCl/PF 4 MG/2 ML Vial IVP PRN (06:42)
--- NOTE | 2017-06-29 07:55 | HP ---
REASON FOR ADMISSION: Chest pain, hypertensive urgency, hyponatremia. HISTORY OF PRESENTING ILLNESS: Patient gives history of having severe low back pain yesterday treverin g. She has chronic back pain, but this got worse yesterday evening. She checked her blood pressure, it was 230/90. At some point, patient also developed retrosternal chest pain after this and took mak blingual nitro which give her some relief, but the pain came back. She soon summoned EMS and was bro ught to the emergency room. The patient says she has had a stress test done in Dr. Reddy's office i n the last 1 year. She has had a stent placed for her heart and the right lower extremity as well. Has chronic cough due to her smoking habit, but no altered phlegm. No fever. The patient is not a v bautista reliable historian. PAST MEDICAL AND SURGICAL HISTORY: History of coronary artery disease with prior stent placed to RCA . This was in [address] Reddy in 11/2015, prior echo done in 05/2016 showed EF of 55%-60%. There was diastolic dysfunction, moderate mitral regurgitation. RV systolic pressures were 45 mmHg then. Her last stress test here in the hospital was in 02/2017 which showed no reversible or fixed defects . TID was 1.24, bilateral hip surgery, anxiety disorder, likely underlying mild dementia, COPD. CURRENT MEDICATIONS: The patient is on Lasix 20 mg daily, Lopressor 12.5 mg twice daily, Plavix 75 m g daily, aspirin 81 mg p.o. daily, Zanaflex 4 mg p.o. three times daily, gabapentin 300 mg p.o. twice daily, Lipitor 10 mg p.o. at bedtime, Protonix 40 mg p.o. daily. ALLERGIES: ALENDRONATE, CELEXA, SULFA, ULTRAM, VITAMIN D3. PERSONAL HISTORY: Smokes one pack a day, does not abuse alcohol or drugs. She stays alone, but her son lives next door. FAMILY HISTORY: Mother of old age at the age of 89 years. Father of [place] at the age of 65 y ears. REVIEW OF SYSTEMS: The following complete review of systems was negative, unless otherwise mentioned in the HPI or below: Constitutional: Weight loss or gain, ability to conduct usual activities. Skin: Rash, itching. Eyes: Double vision, pain. ENT/Mouth: Nose bleeding, neck stiffness, pain, tenderness. Cardiovascular: Palpitations, dyspnea on exertion, orthopnea. Respiratory: Shortness of breath, wheezing, cough, hemoptysis, fever or night sweats. Gastrointestinal: Poor appetite, abdominal pain, heartburn, nausea, vomiting, constipation, or diarr hea. Genitourinary: Urgency, frequency, dysuria, nocturia. Musculoskeletal: Pain, swelling. Neurologic/Psychiatric: Anxiety, depression. Allergy/Immunologic: Skin rash, bleeding tendency. PHYSICAL EXAMINATION: GENERAL: The patient is a 81-year-old female who is currently not in any acute distress. VITAL SIGNS: Blood pressure on arrival was 207/93, pulse 86 per minute, respiratory rate 20 per soledad te, temperature patient is afebrile at present, saturations of 95% on room air. NECK: Supple, no elevated JVD. EYES: Extraocular muscles intact. Pupils are reacting to light. ORAL CAVITY: Mucous membranes are dry. No exudates or congestion. CARDIOVASCULAR SYSTEM: S1, S2 heard. Regular rhythm. RESPIRATORY SYSTEM: Air entry 1+ bilateral. Scattered rhonchi plus. Scattered wheezes plus bilater ally. ABDOMEN: Soft, bowel sounds heard. No tenderness, rigidity or guarding. EXTREMITIES: No peripheral edema or calf tenderness. VASCULAR SYSTEM: Peripheral pulses 1+ bilateral, no ischemic ulcerations or gangrene. CENTRAL NERVOUS SYSTEM: No gross focal deficits seen. The patient is awake and responds well to que stions. She seems to be a little forgetful. She moves all extremities with no focal deficits. PSYCHIATRIC SYSTEM: No obvious hallucinations or delusions. LABORATORY DATA AND IMAGING DATA: White count of 10, hemoglobin and hematocrit 8 and 26, platelet co unt 382, MCV is 73 with 80% neutrophils. Sodium 124, chloride 91, serum bicarbonate 20, BUN 29, crea tinine 1.23, glucose 132. Liver enzymes within normal limits. BNP is 210. Troponin I is less than 0.01, CK-MB 3.1. Chest x-ray by my review shows no acute infiltrate. The patient has what appears t o be sternotomy wire and it is unclear if she had prior CABG. EKG done shows normal sinus rhythm at 85 beats per minute. CLINICAL IMPRESSION AND PLAN: The patient will be admitted to telemetry for chest pain with complete relief from sublingual nitroglycerin and aspirin. She has had recurrent episodes of chest pain from yesterday evening. Initially had hypertensive urgency, most likely due to her back pain which is sl owly resolving at present. She has had a stress test done in the last year which showed no reversibl e ischemia. In view of her strong cardiac history with prior stenting, we will obtain Cardiology con sultation as well. Two more sets of troponin. She will also be on DuoNebs q.6 hourly. We will cont inue her aspirin, Plavix, and closely watch her hemoglobin levels. Her hemoglobin has been chronical ly between 8-9 grams. We will continue on Lopressor, Zanaflex, gabapentin, and Lipitor as before. W e will obtain stool occult blood x2. We will also gently hydrate her with normal saline at 60 mL per hour.
--- NOTE | 2017-06-29 08:15 | RAD ---
RADIOGRAPH CHEST 1 VIEW: HISTORY: A 81-year-old female with chest pain and severe hypertension. FINDINGS: There is hyperinflation of the lungs, consistent with COPD. The thoracic aorta is tortuous and ectat ic. There is no evidence of air space density, pneumothorax, or pulmonary edema. The lateral costop hrenic angles are sharp. IMPRESSION: 1) No acute pulmonary findings. 2) Emphysema. 3) Ectasia of thoracic aorta. kristi [] POS: FANG
[2017-06-29] MEDS: Famotidine 20 MG TAB PO SCH (09:00)
[2017-06-29] MEDS ORDERED: Enoxaparin Sodium 40 MG/0.4 ML SYRINGE SC SCH (09:00)
[2017-06-29] MEDS: Gabapentin 300 MG CAP PO SCH ×2 (09:01→20:48)
[2017-06-29] MEDS: Clopidogrel Bisulfate 75 MG TAB PO SCH (09:01)
[2017-06-29] MEDS: Metoprolol Tartrate 25 MG TAB PO SCH ×2 (09:01→20:48)
[2017-06-29] MEDS: Sodium Chloride 0.9% 1,000 ML IV SCH (09:03)
[2017-06-29 09:33] LABS: Troponin I Less than 0.010 ng/mL (< 0.028)
[2017-06-29] MEDS: Acetaminophen 325 MG TAB PO PRN ×2 (13:26→20:48)
[2017-06-29 14:50] LABS: Anion Gap 13 mmol/L (10-20); BUN (Urea Nitrogen) 26 mg/dL (9.8-20.1); Calc. Creatinine Clearance 34 mL/min (70-130); Calcium 9.5 mg/dL (7.8-10.44); Carbon Dioxide 25 mmol/L (23-31); Chloride 97 mmol/L (98-107); Estimated GFR-MDRD 38; Glucose 88 mg/dL (83-110); Potassium 4.4 mmol/L (3.5-5.1); Sodium 131 mmol/L (136-145)
--- NOTE | 2017-06-29 15:20 | PDOC.EVN ---
Event Note - Event Note Event Note: CC: chets pain sub: pt denies chest pain currently, says she drinks excess water VS: Stable Pe: awake, alert s1s2 present, rrr, no murmu, no rubs, no gallop ctabl, no wheeizng, no honchi soft, nttp, no guarding, no rebound tenderness mood calm A/.P: 1. chest pain 2. hyponatremia PLAN: cardio consulted will monito sodium level tal counselled pt about fluid restriction, pt drinks excess water d/w pt
--- NOTE | 2017-06-29 18:49 | CON ---
CARDIOLOGY CONSULTATION NOTE DATE OF CONSULTATION: 06/29/2017 LOCATION: Room #292. PRIMARY CARE PHYSICIAN: Masood Murphy M.D. PRIMARY CAR AUDIO INSTALLER: Uvaldo Reddy M.D. REFERRING PHYSICIAN: Zaina Miner M.D. REASON FOR CARDIOLOGY CONSULT: Chest pain and history of stent in RCA in 2016. HISTORY OF PRESENT ILLNESS: Ms. Mckinley is a 81-year-old female with a significant history of coronary artery disease with stent placement in 2016 in the right coronary artery with the Synergy drug-coated stent, acute kidney insufficiency, coronary diastolic dysfunction, hypertension, tobacco abuse, iron deficiency anemia, history of EtOH abuse and a current smoker. The patient reports that her blood pressure was high last night, systolic blood pressure up to more than 200 at home and during the episode, she experienced to have sharp chest pain to the mediastinal area for few minutes with blurry vision , numbness to the face, bilateral hands and feet. She administered 1 tablet of sublingual nitroglycerin and then she presented to the Emergency Department for the further evaluation and treatment. She was told to present to the hospital if she needs a nitroglycerin by her doctors. During the episode, she denied shortness of breath, palpitation or fluttering in her chest, dizziness, lightheadedness, diaphoresis, nausea, vomiting or any other cardiac complaints. She also denied headache during the episode. During the initial Cardiology consult assessment, the patient denies any stroke or TIA like symptoms, headache , blurry vision, shortness of breath, chest pain or discomfort in her chest or numbness or tingling to her extremity or any other complaints. She complained of mild fatigue. Her normal blood pressure at home has been in the 120s/70s. Her latest stress test was done in 06/[address] Reddy in the office, which showed normal; however, the patient was recommended to have a left cardiac catheterization by Dr. Reddy in 03/14 due to complaint of chest pain. However , she has not undergone the procedure at this moment due to the cost of the procedure. The patient's last echocardiogram was done in 05/2017, which shows ejection fraction of 50% to 55%, moderate left atrium dilated, moderate to severe mitral valve regurgitation, moderate aortic valve regurgitation, severe tricuspid regurgitation and mildly elevated pulmonary artery pressure. She had a carotid Doppler study in 05/2016, which shows no evidence of significant stenosis of bilateral carotid arteries. The patient underwent cardiac catheterization in 11/2015 with is Synergy drug-coated stent placement x1 in the right coronary arteries. She had a venogram in 05/2016, which shows no evidence of thrombosis in the bilateral lower extremities and also patient had a stress test in 02/2017, which shows normal myocardial function with ejection fraction of 75%. PAST MEDICAL HISTORY: 1. Coronary artery disease, status post Synergy stent placement x1 in the RCA in 11/2015. 2. History of chronic diastolic congestive heart failure. 3. History of fall. 4. Current tobacco abuse. 5. Peripheral vascular disease. PAST SURGICAL HISTORY: Appendectomy, total hysterectomy, bilateral hip replacement in 2008 and a cyst removed from the right elbow. FAMILY HISTORY: The patient's father due to myocardial infarction at the age of 65. The patient's mother due to the complication of CVA at the age of 89, besides there is no significant family history of hypertension, diabetes or stroke. SOCIAL HISTORY: She is . She lives by herself. Her son lives next door. She still currently works as a part-time at the [employer]. She has tried to be active. She is a recovering alcoholic. She stopped drinking since 1995. She is a current smoker about 1 pack a day. She denies any illicit drug abuse. ALLERGIES: She is allergic to SULFA and TRAMADOL. HOME MEDICATIONS: Aspirin 81 mg once a day, atorvastatin 10 mg once a day, cyclobenzaprine 5 mg once a day, gabapentin 300 mg 2 tablets every p.m., isosorbide mononitrate ER, Imdur 30 mg once a day, metoprolol 25 mg twice a day , nitroglycerin 0.4 mg sublingual as needed, Protonix 40 mg once a day, Plavix 75 mg once a day and Ranexa 500 mg twice a day; however, she is not sure if she is taking the Ranexa at this time. REVIEW OF SYSTEMS: The following complete review of systems was negative, unless otherwise mentioned in the HPI or below. Constitutional: Weight loss or gain, sense of well-being, ability to conduct usual activities, exercise tolerance. Skin: Rash, itching, change in hair growth or loss, nail change, breast lump, tenderness, swelling, nipple discharge. Eyes: Vision change, double vision, tearing, blind spots, pain. HENT: Headache, vertigo, lightheadedness, nasal bleeding, cold, obstruction, discharge, dental difficulty , gingival bleeding, stiffness, tenderness or mass in the thyroid or other areas. Cardiovascular: Palpitations, syncope, dyspnea on exertion, orthopnea, nocturnal dyspnea, edema, cyanosis, heart murmurs, claudication and varicosis. Respiratory: Shortness of breath, wheezing, stridor, cough, hepatitis, fever or night sweats. Gastrointestinal: Poor appetite, dysphagia, indigestion, abdominal pain, heartburn, eructation, nausea, vomiting, jaundice, constipation , diarrhea, blood in the stool. Genitourinary: Urgency, frequency, dysuria, nocturia, hematuria, polyuria, oliguria, unusual color of urine, any hesitancy. Musculoskeletal: Pain, swelling, redness. She has a chronic back pain. The patient denies any swelling. No heat of muscle or joint, limitation of motion within the last 3 months. Neurologic: Seizure, convulsion, paralysis, tremor, incoordination, difficulties with memory of speech, but she has a history of TIA in 05/2016. PHYSICAL EXAMINATION: VITAL SIGNS: Blood pressure 167/71, heart rate 83, sinus rhythm, respiratory rate is 18, O2 sat 97% on room air and temperature 98.2. GENERAL: A well-developed, well-nourished without any acute distress. HEAD: Normocephalic and atraumatic. EYES: Extraocular muscle movement intact. ENT: Oral and nasal mucosa are moist without lesion. NECK: No JVD. Neck is supple with normal range of motion. LUNGS: Clear to auscultation bilaterally, very diminished at the bases. No wheezing, rales or rhonchi noted. CARDIOVASCULAR: Regular rate and rhythm. Normal S1 and S2. There are no S3 or S4. There are murmurs to the left mediastinal border; however, no hives, thrill, bruits or rubs noted. There are 2+ pulses in the bilateral dorsal pedis , posterior tibial, popliteal and femoral pulses. Carotid pulses are present without bruits or thrill. No edema in the bilateral lower extremities; however , the patient reports that she has some swelling in the bilateral lower extremity yesterday. ABDOMEN: Soft and nontender or mass to palpate, nondistended. Bowel sounds are present. MUSCULOSKELETAL: No calf tenderness. Able to move all extremities. SKIN: Warm and dry. No skin rash, lesion or bruise noted. NEUROLOGIC: Alert and oriented x4. Normal affect, nonfocal. PSYCHIATRIC: Mood and affect are normal. IMAGING DATA: EKG: A 12-lead EKG at the Emergency Department showed sinus rhythm with heart rate of 85. No ST segment change or T-wave inversion. Chest x-ray shows no acute pulmonary finding, but emphysema. She had echo done on this admission, the result is pending at this moment. LABORATORY DATA: WBC 10.6, hemoglobin 8.3 and platelet 382. Sodium 124, BUN 29 and creatinine 1.23. AST 24, ALT 9, CK-MB 3.1 and troponin is less than 0.010 x3. BNP is 210. IMPRESSION AND PLAN: 1. Chest pain. Her sharp chest pain was improved with 1 sublingual nitroglycerin last night. Her stress test in 02/2017 was normal with no reversible ischemia. She has not had a cardiac catheterization at this moment by Dr. Reddy. We would like to defer the decision to Dr. Reddy, but we would like to keep the patient n.p.o. from midnight. She is on aspirin 81 mg, metoprolol 12.5 mg twice a day, Plavix 75 mg once a day and Lovenox 40 mg once a day. 2. Coronary artery disease with a history of stent placement in the right coronary artery in 11/2015. EKG shows normal sinus rhythm at this moment and the patient's troponin levels have been negative. We would like to continue to monitor the patient on telemetry. 3. Hypertension urgency. Her blood pressure has been improving. We would like to adjust patient's medication as appropriate. 4. History of transient ischemic attack. At this moment, she does not show any signs of stroke. She does not have any residual from previous transient ischemic attack. She will walk around the hospital without any difficulty. At this moment, we would like to continue to monitor. 5. Current smoker. She still continues to smoke one pack a day. Smoking cessation education given to the patient. At this moment, the patient does not have nicotine patch; however, she refused to have it at this moment. Thank you very much for allowing Cardiology Service to participate in the care of this patient. We will follow along with the patient care team and make further recommendations as appropriate. CHANDLER
[2017-06-29] MEDS: Atorvastatin Calcium 10 MG TAB PO SCH (20:48)
--- NOTE | 2017-06-29 21:48 | ADD-CON ---
ADDENDUM CARDIOLOGY CONSULTATION NOTE DATE OF CONSULTATION: 06/29/2017 INDICATION FOR CONSULTATION: A 81-year-old female with hypertensive urgency and chest pain with hist ory of known coronary artery disease, angioplasty, stent placement and peripheral vascular disease wi th continued use of tobacco. HISTORY OF PRESENT ILLNESS: This is a very unfortunate 81-year-old female with a long history of cor onary artery disease, has undergone angioplasty and stent placement by Dr. Reddy. She also had jameson oplasty, possible stent placement to the lower extremities, also the iliacs, but has been doing quite well since that time. She does have chronic back pain and pain in the legs when she tries to ambula te. She had angioplasty to the right femoral artery. The right lower extremity showed moderate to s evere external iliac disease and she underwent the angioplasty. She did have also the same procedure , appears that she did have a stent placed to the right coronary artery. In 11/2015, she had angiopl asty and stent placed in the right coronary with a 4 x 20 mm Synergy stent. At this time, she presen aide again after having back pain and increasing shortness of breath. At this time, she is more stabl e. Her blood pressure was significantly elevated and she presented to the emergency room. Her blood pressure still remains slightly elevated, but was improved. It was down to 132 earlier today, but n ow it is back up to 167/71, but she denies any symptoms at this time. She has just finished her resp iratory treatment. She denies any chest pain. Her cardiac enzymes are negative and the EKG does not show any acute changes. For the remainder of her review of systems, past medical history, social hi story, family history, please refer the notes dictated by the Nurse Practitioner, Mary Carmen. PHYSICAL EXAMINATION: GENERAL: Reveals an elderly female who is in no acute distress at this time. VITAL SIGNS: Blood pressure 167/71, heart rates in the 80s and shows sinus rhythm, respiratory rate is 18 and O2 saturations are 90% to 100%. She is afebrile. HEENT: Shows the head to be normocephalic and atraumatic. She has a left carotid bruit, which is ra ther soft, I did not hear on the right side. There were no other significant abnormalities noted in the HEENT exam. CHEST: Clear to auscultation at this time without any rales, rhonchi or wheezing. Breath sounds are somewhat distant, however. CARDIOVASCULAR: Reveals a regular rate and rhythm. She has a systolic murmur at the apex, 3/6. She also has a soft systolic murmur of the aortic area, 2/6. There were no heaves or thrills noted. ABDOMEN: Soft and nontender. She has abdominal bruits noted over the iliac areas extended down to t he femoral arteries. The common femoral artery has bilateral femoral bruits. She also has pedal pul ses. The left posterior tibial is not as easily palpable as the right, but the pulse appears to be t here and both anterior tibial pulses are present. NEUROLOGIC: The patient was fully intact. There were no significant abnormalities noted. SKIN: Warm and dry. IMAGING DATA: Please refer to the notes already dictated as well as her EKG, which shows sinus rhyth m with no acute changes. There were no other significant abnormalities noted. IMPRESSION AND PLAN: 1. An elderly female with history of hypertension, which was poorly controlled at that time. She di d take nitroglycerin, which did improve the blood pressure as well as her pain. She was advised rece ntly to undergo a repeat cardiac catheterization. At the time of her last cardiac catheterization, s he did have a 50% proximal left circumflex stenosis was the right coronary stenosis. She was advised to undergo recently another cardiac catheterization within the last 6 months to a year, but has been unable financially to be able to afford this. Otherwise, she has been doing relatively well and kno ws that she is in the hospital. We may need to proceed with cardiac catheterization; however, there were no enzyme changes or any EKG changes to indicate ischemia. 2. History of hypertension. We will need to manage her medications better to improve her blood pres sure. Certainly, if the blood pressure increases, this may be some of the etiology of her chest disc omfort. 3. History of tobacco abuse. She has continued to smoke a pack a day. She was encouraged again tod ay; my visit is to stop smoking. 4. Peripheral vascular disease, which she is followed up by Dr. Reddy and has undergone angioplasti es in the past. There has not been any stent placements. 5. History of moderate to severe mitral valve regurgitation, but she does not appear to be in any co ngestive heart failure at this time. Further care will be determined by Dr. Reddy when he sees the patient tomorrow. We will keep her n.p.o. in case he was to cath her tomorrow.
[2017-06-30 05:38] LABS: #Basophils 0.1 thou/uL (0.0-0.2); #Eosinphils 0.1 thou/uL (0.0-0.7); #Lymphocytes 1.8 thou/uL (1.20-3.40); #Monocytes 0.8 thou/uL (0.11-0.59); #Neutrophils 6.7 thou/uL (1.40-6.50); %Basophils 0.9 % (0.0-1.0); %Eosinophils 1.3 % (0.0-10.0); %Lymphocytes 19.2 % (21.0-51.0); %Monocytes 8.4 % (0.0-10.0); %Neutrophils 70.2 % (42.0-75.0); Hemoglobin 7.4 g/dL (12.0-16.0); Mean Corpuscular HGB CONC 31.1 g/dL (32.0-36.0); Mean Corpuscular Hemoglobin 23.5 pg (27.0-31.0); Mean Corpuscular Volume 75.6 fl (81.0-99.0); Mean Platelet Volume 6.8 fL (7.4-10.4); Platelet Count 505 thou/uL (130-400); RBC Distribution Width 16.6 % (11.5-14.5); Red Blood Cell (RBC) Count 3.14 mill/uL (4.20-5.40); White Blood Cell (WBC) Count 9.5 thou/uL (4.8-10.8)
[2017-06-30 05:55] LABS: Anion Gap 12 mmol/L (10-20); BUN (Urea Nitrogen) 24 mg/dL (9.8-20.1); Calc. Creatinine Clearance 44 mL/min (70-130); Calcium 8.8 mg/dL (7.8-10.44); Carbon Dioxide 23 mmol/L (23-31); Cardiac Risk 3.2 (Less than 4.5); Chloride 105 mmol/L (98-107); Cholesterol 126 mg/dl (< 200 Desired); Estimated GFR-MDRD 53; Glucose 89 mg/dL (83-110); HDL Cholesterol 40 mg/dL (>60 Neg Risk); LDL Cholesterol, Calculated 59 mg/dL; Potassium 4.2 mmol/L (3.5-5.1); Sodium 136 mmol/L (136-145); Triglycerides 137 mg/dL (Less than 150)
[2017-06-30] MEDS: Sodium Chloride 0.9% 1,000 ML IV SCH (06:51)
[2017-06-30 08:52] LABS: Magnesium 2.5 mg/dL (1.6-2.6); Phosphorus 3.7 mg/dL (2.3-4.7)
--- NOTE | 2017-06-30 09:00 | CT ---
CT BRAIN WITHOUT CONTRAST: Date: 06/30/17 HISTORY: Encephalopathy. FINDINGS: Comparison made with exam of 06/12/16. Changes of chronic small vessel ischemic disease again seen in the periventricular and subcortical wh ite matter. The ventricular size is stable and the basilar cisterns are patent. No evidence of acute infarct, hemorrhage, midline shift, or abnormal extra-axial fluid collections are seen. The bony calv arium is intact. The visualized paranasal sinuses and mastoid air cells are well aerated. IMPRESSION: No CT evidence of acute intracranial process. POS: OFF
[2017-06-30] MEDS: Clopidogrel Bisulfate 75 MG TAB PO SCH (09:06)
[2017-06-30] MEDS: Famotidine 20 MG TAB PO SCH (09:06)
[2017-06-30] MEDS: Metoprolol Tartrate 25 MG TAB PO SCH ×2 (09:06→21:24)
[2017-06-30] MEDS: Gabapentin 300 MG CAP PO SCH (09:07)
[2017-06-30] MEDS ORDERED: Dextrose 5% in Water 1,000 ML IV SCH (09:15)
[2017-06-30 09:28] LABS: Hemoglobin 7.7 g/dL (12.0-16.0)
[2017-06-30 09:45] LABS: Anion Gap 12 mmol/L (10-20); BUN (Urea Nitrogen) 22 mg/dL (9.8-20.1); Calc. Creatinine Clearance 44 mL/min (70-130); Carbon Dioxide 23 mmol/L (23-31); Chloride 106 mmol/L (98-107); Estimated GFR-MDRD 53; Glucose 87 mg/dL (83-110); Potassium 4.2 mmol/L (3.5-5.1); Sodium 137 mmol/L (136-145)
[2017-06-30 10:19] LABS: Folate (Folic Acid) 13.9 ng/mL (7.0-31.4)
[2017-06-30] MEDS ORDERED: predniSONE 20 MG TAB PO SCH (10:45)
[2017-06-30] MEDS: Acetaminophen 325 MG TAB PO PRN ×2 (13:43→21:24)
[2017-06-30 15:39] LABS: Anion Gap 13 mmol/L (10-20); BUN (Urea Nitrogen) 20 mg/dL (9.8-20.1); Calc. Creatinine Clearance 38 mL/min (70-130); Carbon Dioxide 21 mmol/L (23-31); Chloride 103 mmol/L (98-107); Estimated GFR-MDRD 45; Glucose 200 mg/dL (83-110); Potassium 4.1 mmol/L (3.5-5.1); Sodium 133 mmol/L (136-145)
--- NOTE | 2017-06-30 17:25 | PDOC.CTH ---
Cardiology Progress Note - Subjective She is doing well. She continues to have episodes of chest pain. her BP is better controlled. - Objective Vital Signs Temp Pulse Resp BP Pulse Ox 06/30/17 16:00 97.8 F 91 18 110/51 L 93 L 06/30/17 12:00 97.5 F L 94 18 146/70 H 95 06/30/17 08:00 97.2 F L 91 16 140/65 92 L Admit Weight 140 lb 1.6 oz Weight 135 lb 12.8 oz 06/29/17 06/30/17 07/01/17 06:59 06:59 06:59 Intake Total 120 1543 Output Total 1075 Balance 120 468 - Physical Examination General/Neuro: alert & oriented x3, NAD Neck: no JVD present Lungs: unlabored respirations Heart: RRR Abdomen: NT/ND Extremities: other: (no edema.) - Telemetry Telemetry Rhythm: NSR - Labs Result Diagrams: 06/30/17 09:10 06/30/17 15:12 Troponin/CKMB CK-MB (CK-2) 3.1 ng/mL (0-6.6) 06/29/17 02:15 Troponin I Less than 0.010 ng/mL (< 0.028) 06/29/17 08:48 - Assessment/Plan 1. Chest pain 2. Known CAD, RCA stent in 2014 3. HTN, better controlled. 4. Chronic back pain. PLAN: - Will plan on [facility] tomorrow for further risk stratification. - We spoke about risks and benefits of this procedure, risks included but not limited to stroke, OR, , bleeding and blood transfusions, limb loss, organ loss, vascular injury requiring emergent surgery, need for emergent CABG, renal failure, she agrees to proceed. - She will require good sedation given her chronic back pain, we spoke about moderate sedation and she agrees to proceed. - Will try to do this tomorrow morning.
--- NOTE | 2017-06-30 20:31 | PDOC.PN ---
- Subjective Encounter Start Date: 06/30/17 Encounter Start Time: 11:30 Patient seen and examined. No new complaints. Overnight events noted. Was confused/agitated last night until around 9-10 am. No focal deficits. - Objective Resuscitation Status: Resuscitation Status FULL:Full Resuscitation MAR Reviewed: Yes Vital Signs & Weight: Vital Signs (12 hours) Temp Pulse Resp BP Pulse Ox 06/30/17 16:00 97.8 F 91 18 110/51 L 93 L 06/30/17 12:00 97.5 F L 94 18 146/70 H 95 Weight Admit Weight 140 lb 1.6 oz Weight 135 lb 12.8 oz I&O: 06/29/17 06/30/17 07/01/17 06:59 06:59 06:59 Intake Total 120 1543 1573 Output Total 1075 600 Balance 120 468 973 Result Diagrams: 07/01/17 04:56 07/01/17 04:56 EKG Reviewed by me: Yes (Tele SR) Phys Exam - Physical Examination Constitutional: NAD HEENT: moist MMs Neck: no nodes, no JVD Respiratory: no wheezing, no rales, no rhonchi, clear to auscultation bilateral Cardiovascular: RRR, no rub no heaves/pulsations Gastrointestinal: soft, non-tender, no distention, positive bowel sounds Musculoskeletal: no edema Neurological: non-focal, normal sensation, moves all 4 limbs Psychiatric: normal affect, A&O x 3 Dx/Plan - Plan DVT proph w/SCDs IMPRESION: 1. Toxic Metabolic Encephalopathy - multifactorial - ?Hyponatemia ?Zanaflex ( Patient does not take Zanaflex at home) - resolved 2. Chest pain - resolved with NTG 3. Acute on chronic Hyponatemia 4. Chronic low back pain 5. CAD/ Ongoing Tobacco abuse/Anemia - ?iron def PLAN: * Cardio following * DC Zanaflex * Check iron profile * Cont ASA/Plavix * Resume Prednisone * Cont Nitrates/BB Review of Systems - Review of Systems Respiratory: negative: Cough, Dry, Shortness of Breath, Hemoptysis, SOB with Excertion, Pleuritic Pain, Sputum, Wheezing Cardiovascular: negative: chest pain, palpitations, orthopnea, paroxysmal nocturnal dyspnea, edema, light headedness Gastrointestinal: negative: Nausea, Vomiting, Abdominal Pain, Diarrhea, Constipation, Melena, Hematochezia - Medications/Allergies Allergies/Adverse Reactions: Allergies Allergy/AdvReac Type Severity Reaction Status Date / Time alendronate sodium Allergy joint pains Verified 06/29/17 05:01 citalopram Allergy dizziness Verified 06/29/17 05:01 sulfacetamide Allergy Verified 06/29/17 05:01 tizanidine [From Zanaflex] Allergy Verified 06/30/17 11:03 tramadol Allergy headaches Verified 06/29/17 05:01 vit d3 Allergy bones hurt Uncoded 06/29/17 05:01 Medications: Current Medications Acetaminophen (Tylenol) 650 mg PO Q4H PRN PRN Reason: Headache/Fever or Pain Last Admin: 06/30/17 13:43 Dose: 650 mg Albuterol/Ipratropium (Duoneb) 3 ml NEB [id number] [facility] Last Admin: 06/30/17 18:46 Dose: Not Given Aspirin (Aspirin Chewable) 81 mg PO DAILY [facility] Last Admin: 06/30/17 09:06 Dose: 81 mg Atorvastatin Calcium (Lipitor) 10 mg PO HS [facility] Last Admin: 06/29/17 20:48 Dose: 10 mg Clopidogrel Bisulfate (Plavix) 75 mg PO DAILY [facility] Last Admin: 06/30/17 09:06 Dose: 75 mg Guaifenesin/Dextromethorphan (Robitussin Dm) 15 ml PO Q4H PRN PRN Reason: Cough Isosorbide Mononitrate (Imdur Er) 30 mg PO DAILY [facility] Metoprolol Tartrate (Lopressor) 12.5 mg PO BID [facility] Last Admin: 06/30/17 09:06 Dose: 12.5 mg Nitroglycerin (Nitrostat) 0.4 mg PO Q5MIN PRN PRN Reason: Chest Pain Ondansetron HCl (Zofran) 4 mg IVP Q6H PRN PRN Reason: Nausea/Vomiting Pantoprazole Sodium (Protonix) 40 mg PO DAILY [facility] Prednisone (Prednisone) 5 mg PO DAILY [facility] Senna (Senokot) 2 tab PO HSPRN PRN PRN Reason: Constipation Sodium Chloride (Flush - Normal Saline) 10 ml IVF Q12HR [facility] Sodium Chloride (Flush - Normal Saline) 10 ml IVF PRN PRN PRN Reason: Saline Flush
[2017-06-30] MEDS: Atorvastatin Calcium 10 MG TAB PO SCH (21:24)
[2017-06-30] MEDS ORDERED: Acetaminophen/Codeine 30-300mg Tablet PO SCH (23:30)
[2017-07-01 05:23] LABS: Hemoglobin 7.5 g/dL (12.0-16.0); Platelet Count 493 thou/uL (130-400)
[2017-07-01 05:50] LABS: Anion Gap 14 mmol/L (10-20); BUN (Urea Nitrogen) 24 mg/dL (9.8-20.1); Calc. Creatinine Clearance 32 mL/min (70-130); Calcium 8.6 mg/dL (7.8-10.44); Carbon Dioxide 20 mmol/L (23-31); Chloride 99 mmol/L (98-107); Estimated GFR-MDRD 37; Glucose 101 mg/dL (83-110); Iron 16 ug/dL (50-170); Iron Binding Capacity, Total 474 mcg/dL (265-497); Potassium 3.9 mmol/L (3.5-5.1); Sodium 129 mmol/L (136-145)
[2017-07-01] MEDS ORDERED: Acetaminophen/Codeine 30-300mg Tablet PO SCH (06:00)
[2017-07-01] MEDS ORDERED: Sodium Ferric Gluconate 250 MG in Sodium Chloride 0.9% 250 ML 250 ML IVPB SCH (07:00)
[2017-07-01] MEDS: Clopidogrel Bisulfate 75 MG TAB PO SCH (09:23)
[2017-07-01] MEDS: Metoprolol Tartrate 25 MG TAB PO SCH ×2 (09:23→21:37)
[2017-07-01] MEDS: predniSONE 5 MG TAB PO SCH (09:23)
[2017-07-01] MEDS: Gabapentin 300 MG CAP PO SCH ×2 (09:23→21:37)
[2017-07-01] MEDS ORDERED: Lidocaine 1% (PF) 30 ML VIAL ONE (11:49)
[2017-07-01] MEDS ORDERED: Midazolam HCl 2 mg/2 ml Vial ONE (12:17)
[2017-07-01] MEDS ORDERED: Fentanyl 100 MCG/2 ML VIAL ONE (12:17)
[2017-07-01] MEDS ORDERED: Verapamil 5 MG/2 ML VIAL ONE (12:20)
[2017-07-01] MEDS ORDERED: Heparin 10,000 UNITS/1 ML VIAL ONE (12:20)
[2017-07-01] MEDS ORDERED: Nitroglycerin 100MG/250ML BOT 250 ML ONE (12:20)
[2017-07-01] MEDS ORDERED: Sodium Chloride 0.9% 1,000 ML IV SCH (13:00)
[2017-07-01] MEDS ORDERED: Iopamidol 370 76% 100 ML VIAL ONE (16:22)
--- NOTE | 2017-07-01 17:50 | PDOC.PN ---
- Subjective Encounter Start Date: 07/01/17 Encounter Start Time: 16:00 Patient seen and examined. No new complaints. No overnight events. s/p Cath. No CP. - Objective Resuscitation Status: Resuscitation Status FULL:Full Resuscitation MAR Reviewed: Yes Vital Signs & Weight: Vital Signs (12 hours) Temp Pulse Resp BP Pulse Ox 07/01/17 13:15 97.6 F 77 18 162/68 H 98 07/01/17 12:59 73 18 07/01/17 08:00 97.2 F L 83 18 157/70 H 97 Weight Admit Weight 140 lb 1.6 oz Weight 135 lb I&O: 06/30/17 07/01/17 07/02/17 06:59 06:59 06:59 Intake Total 1543 1933 Output Total 1075 1050 Balance 468 883 Result Diagrams: 07/01/17 04:56 07/01/17 04:56 EKG Reviewed by me: Yes (Tele SR) Phys Exam - Physical Examination Constitutional: NAD Respiratory: no wheezing, no rhonchi Cardiovascular: RRR, no rub Gastrointestinal: soft, non-tender, positive bowel sounds Musculoskeletal: no edema Neurological: moves all 4 limbs Dx/Plan - Plan DVT proph w/SCDs IMPRESION: 1. Chest pain - resolved with NTG, s/p Cath 2. Toxic Metabolic Encephalopathy - resolved 3. Acute on chronic Hyponatemia 4. Chronic low back pain 5. CAD/ Ongoing Tobacco abuse/Iron def Anemia PLAN: * Cardio following * IV iron * Cont ASA/Plavix * Cont Prednisone/Nitrates/BB * BMP in AM * DC in AM if sodium stable Review of Systems - Review of Systems Respiratory: negative: Cough, Dry, Shortness of Breath, Hemoptysis, SOB with Excertion, Pleuritic Pain, Sputum, Wheezing Cardiovascular: negative: chest pain, palpitations, orthopnea, paroxysmal nocturnal dyspnea, edema, light headedness - Medications/Allergies Allergies/Adverse Reactions: Allergies Allergy/AdvReac Type Severity Reaction Status Date / Time alendronate sodium Allergy joint pains Verified 06/29/17 05:01 citalopram Allergy dizziness Verified 06/29/17 05:01 sulfacetamide Allergy Verified 06/29/17 05:01 tizanidine [From Zanaflex] Allergy Verified 06/30/17 11:03 tramadol Allergy headaches Verified 06/29/17 05:01 vit d3 Allergy bones hurt Uncoded 06/29/17 05:01 Medications: Current Medications Acetaminophen (Tylenol) 650 mg PO Q4H PRN PRN Reason: Headache/Fever or Pain Last Admin: 06/30/17 21:24 Dose: 650 mg Acetaminophen/Codeine Phosphate (Tylenol #3) 1 tab PO Q4H PRN PRN Reason: Pain Albuterol/Ipratropium (Duoneb) 3 ml NEB [id number] [facility] Last Admin: 07/01/17 13:36 Dose: Not Given Aspirin (Aspirin Chewable) 81 mg PO DAILY [facility] Last Admin: 07/01/17 09:23 Dose: 81 mg Atorvastatin Calcium (Lipitor) 10 mg PO HS [facility] Last Admin: 06/30/17 21:24 Dose: 10 mg Clopidogrel Bisulfate (Plavix) 75 mg PO DAILY [facility] Last Admin: 07/01/17 09:23 Dose: 75 mg Gabapentin (Neurontin) 300 mg PO BID [facility] Last Admin: 07/01/17 09:23 Dose: 300 mg Guaifenesin/Dextromethorphan (Robitussin Dm) 15 ml PO Q4H PRN PRN Reason: Cough Sodium Chloride (Normal Saline 0.9%) 1,000 mls @ 100 mls/hr IV .Q10H [facility] Stop: 07/01/17 18:00 Last Admin: 07/01/17 16:08 Dose: 1,000 mls Isosorbide Mononitrate (Imdur Er) 30 mg PO DAILY [facility] Last Admin: 07/01/17 09:23 Dose: 30 mg Metoprolol Tartrate (Lopressor) 12.5 mg PO BID [facility] Last Admin: 07/01/17 09:23 Dose: 12.5 mg Nitroglycerin (Nitrostat) 0.4 mg PO Q5MIN PRN PRN Reason: Chest Pain Ondansetron HCl (Zofran) 4 mg IVP Q6H PRN PRN Reason: Nausea/Vomiting Pantoprazole Sodium (Protonix) 40 mg PO DAILY [facility] Last Admin: 07/01/17 09:23 Dose: 40 mg Prednisone (Prednisone) 5 mg PO DAILY [facility] Last Admin: 07/01/17 09:23 Dose: 5 mg Senna (Senokot) 2 tab PO HSPRN PRN PRN Reason: Constipation Sodium Chloride (Flush - Normal Saline) 10 ml IVF Q12HR [facility] Last Admin: 07/01/17 09:24 Dose: 10 ml Sodium Chloride (Flush - Normal Saline) 10 ml IVF PRN PRN PRN Reason: Saline Flush
--- NOTE | 2017-07-01 20:42 | RAD ---
LUMBAR SPINE THREE VIEW 07/01/17 HISTORY: Back pain. COMPARISON: None. FINDINGS: There are compression fractures of L1 and L2, age indeterminate. There is a lumbosacral transitional vertebrae. This will be termed L5. There is anterolisthesis of L4 over L5, grade I, proximally 5 mm w ith associated degenerative narrowing of the L4-5 disc space. Extensive vascular calcifications. Ther e is contrast within the urinary bladder. IMPRESSION: 1. Compression fractures of L1 and L2 with the L2 superior end plate compression deformity appea ring new from the comparison examination of 05/06/16. There is also a compression fracture of thoracic spine which is unchanged from the 05/06/16 examination. 2. Lumbosacral transitional vertebra. 3. 5 mm anterolisthesis of L4 over L5. POS: [facility]
--- NOTE | 2017-07-01 20:44 | RAD ---
THORACIC SPINE TWO VIEW 07/01/17 HISTORY: Pain. COMPARISON: CT angio of 06/11/16. FINDINGS: There are compression deformity lower thoracic spine, similar to the comparison examination at T10. N o new compression deformities seen. L2 compression deformity is also present. IMPRESSION: Thoracic and lumbar compression deformities at T10, L1 and L2. T10 fracture is similar. Please see [facility] spine radiographs for comparison. POS: [facility]
[2017-07-01] MEDS: Atorvastatin Calcium 10 MG TAB PO SCH (21:36)
[2017-07-01] MEDS: Acetaminophen/Codeine 30-300mg Tablet PO PRN (21:37)
[2017-07-02 05:30] LABS: Hemoglobin 6.8 g/dL (12.0-16.0)
[2017-07-02 05:49] LABS: BUN (Urea Nitrogen) 17 mg/dL (9.8-20.1); Calc. Creatinine Clearance 45 mL/min (70-130); Calcium 8.7 mg/dL (7.8-10.44); Carbon Dioxide 23 mmol/L (23-31); Chloride 108 mmol/L (98-107); Estimated GFR-MDRD 55; Glucose 93 mg/dL (83-110); Sodium 136 mmol/L (136-145)
[2017-07-02 07:42] LABS: Anion Gap 9 mmol/L (10-20)
--- NOTE | 2017-07-02 10:00 | ULT ---
RIGHT GROIN ULTRASOUND: History: Patient is status post cath on 07-01-17. Evaluation for pseudoaneurysm. FINDINGS: Real-time imaging of the groin shows no evidence of pseudoaneurysm or fistula. Normal flow patterns w ith triphasic waveform patterns seen in the common femoral artery. IMPRESSION: No evidence of pseudoaneurysm. POS: [facility]
[2017-07-02] MEDS: Clopidogrel Bisulfate 75 MG TAB PO SCH (10:28)
[2017-07-02] MEDS: Metoprolol Tartrate 25 MG TAB PO SCH ×2 (10:29→20:48)
[2017-07-02] MEDS: Calcium Carbonate + Vit D 1 TAB PO SCH ×2 (10:30→16:22)
[2017-07-02] MEDS: predniSONE 5 MG TAB PO SCH (10:30)
[2017-07-02] MEDS: Gabapentin 300 MG CAP PO SCH ×2 (10:30→20:47)
--- NOTE | 2017-07-02 11:42 | CON ---
DATE OF CONSULTATION: 07/02/2017 This is a 30 minute initial patient consult in which greater than 50% of the time was spent counselin g and coordinating patient's care. Remainder of the exam was spent review of patient's medical recor ds and review of imaging studies. CHIEF COMPLAINT: Acute on chronic low back pain. HISTORY OF PRESENT ILLNESS: Ms. Mckinley is a pleasant 81-year-old female who was admitted to [facility] roughly 3 days ago with complaints of acute on chronic low back pain with additional complaints of chest pain. The patient has currently been on the telemetry floor and did undergo a heart cathete rization while admitted. In regards to the patient's back pain, she states that this has been presen t since she was 42 years old, but roughly over the past 5 years has become progressively worse. The pain typically is in the midline of the low back radiating into the bilateral paralumbar region. How ever, over the past 1 month, she has noticed that the pain radiates into the left hip and left latera l thigh ending at the knee. She has a history of a right hip replacement in 2008. She does use a wa lking cane at home. She states that the pain began gradually without precipitating incident or injur y including a fall or trauma. The patient denies any weakness in the legs. The patient did undergo x-rays thoracic and lumbar spine that shows perhaps a new compression fractur e at L2 with a stable compression fracture at T11. The patient does have a history of smoking and ch ronic obstructive pulmonary disease with perhaps osteoporosis and long-term steroid use. PHYSICAL EXAMINATION: The patient is awake, alert and appropriate. She has full strength in the inga ateral upper extremities and in the left lower extremity; however, her range of motion and strength t esting is limited due to the fact that she had her heart catheterization through the right femoral ar shakeel. She does have good strength in dorsiflexion and plantar flexion on the right leg and wiggles t he toes on the right leg as well. She has no worrisome myelopathic features on exam including negati ve Horton's bilaterally and no increased tone. DIAGNOSES: 1. Possible acute L2 endplate fracture seen on x-ray. 2. Stable thoracic compression fracture. PLAN: I discussed the patient's imaging and case with Dr. Cazares. We will more than likely plan for treatment of the patient's back pain in a TLSO clamshell brace; however, would like to get more imag ing studies to further evaluate this fracture. To further evaluate the fracture we will get CT scans of the thoracic and lumbar spine without contrast. Upon review of these, of course, we will order a clamshell TLSO brace and do not plan for any type of surgery and the patient was very pleased for th is. She would be a poor surgical candidate as her bone quality is not suitable for hardware. Again, the patient is pleased with this news, but again, we will follow up on the patient's further testing . Please call with any questions or changes in the patient's neurologic status. Otherwise, we will fol low up once her studies have been completed.
--- NOTE | 2017-07-02 12:46 | PDOC.CTH ---
Cardiology Progress Note - Subjective She is doing well. She has some bruising on her right groin but no hematoma. Her Hgb did drop one point which is expected in the setting of a diagnostic [facility]. - Objective Vital Signs Temp Pulse Pulse Resp BP BP Pulse Ox 07/02/17 10:25 97.4 F L 76 18 156/66 H 96 07/02/17 04:17 94 L 07/02/17 03:26 98.7 F 78 18 154/70 H 94 L Admit Weight 140 lb 1.6 oz Weight 134 lb 6.4 oz 07/01/17 07/02/17 07/03/17 06:59 06:59 06:59 Intake Total 1933 1200 0 Output Total 1050 900 Balance 883 300 0 - Physical Examination General/Neuro: alert & oriented x3, NAD Neck: no JVD present Lungs: CTA, unlabored respirations Heart: RRR Abdomen: NT/ND Extremities: other: (no edmea.) Other PE findings: Right groin with ecchymosis but no hematoma. - Telemetry Telemetry Rhythm: NSR - Labs Result Diagrams: 07/02/17 04:36 07/02/17 04:36 Troponin/CKMB CK-MB (CK-2) 3.1 ng/mL (0-6.6) 06/29/17 02:15 Troponin I Less than 0.010 ng/mL (< 0.028) 06/29/17 08:48 - Assessment/Plan 1. Chest pain 2. Known CAD, RCA stent in 2014 3. HTN, better controlled. 4. Chronic back pain. 5. Anemia, chronic, drop is expected from [id number] LHC. Agree with transfusion. PLAN: - Agree with one unit PRBC. - Widely patent coronaries and RCA stent. - May discharge home at any time from cardiac perspective.
--- NOTE | 2017-07-02 16:52 | CT ---
CT LUMBAR SPINE WITHOUT CONTRAST 07/02/17 HISTORY: Back pain. Symptoms x30 years. COMPARISON: None. TECHNIQUE: CT lumbar spine is performed without contrast. Reformatted images are submitted for interpretation. FINDINGS: Complex cyst emanating from the posterior right renal cortex measuring 1.5 cm. The visualized solid organs are grossly unremarkable. Aneurysmal dilatation of a infrarenal abdominal aorta measuring 4.7 cm mediolateral x 4.1 cm anterior posterior. There is circumferential atherosclerosis. No retroperitoneal mass, lymphadenopathy or hem atoma. There is diffuse bone demineralization. Lumbar spine vertebral body height is maintained. No fracture . Mild loss of vertebral body height at L2, involving the superior end plate. No spondylolisthesis or spondylolysis. There are degenerative changes in the posterior elements involving the left aspect of L2, L3, L3-4 and L4-5. Vacuum disc phenomenon at L5-S1. Limited evaluation of the contents of the central spinal canal and neural foramina due to technique. T12-L1: No high grade central canal stenosis or high grade foraminal narrowing. L1-L2: No high grade central canal stenosis or high grade foraminal narrowing. L2-L3: No high grade central canal stenosis or foraminal narrowing. L3-L4: No high grade central canal stenosis or foraminal narrowing. L4-L5: No high grade central canal stenosis or foraminal narrowing. L5-S1: Vacuum disc phenomenon. No high grade central canal stenosis or high grade foraminal narrowing . Vacuum disc phenomenon involving the right SI joint. IMPRESSION: 1. Diffuse bone demineralization. 2. No high grade central canal stenosis or high grade foraminal narrowing. 3. Vacuum disc phenomenon at L5-S1. 4. Aneurysmal dilatation and atherosclerosis of the infrarenal abdominal aorta, incompletely christopher luated. POS: [facility]
--- NOTE | 2017-07-02 16:58 | CT ---
THORACIC SPINE CT WITHOUT CONTRAST: History: Low back pain x 30 years. Comparison: None. Technique: Thoracic spine CT is performed without contrast. Coronal and sagittal reformatted images a re submitted for interpretation. FINDINGS: There is diffuse bone demineralization. The majority of the thoracic spine has a preservation of vert ebral body height. No acute fractures. There is a chronic moderate compression fracture at T11 with m ild retropulsion. The contents of the spinal canal and neural foramina are limited in evaluation due to technique. Ther e is no high grade central canal stenosis. There is mild stenosis at the superior aspect of T10 due t o retropulsion. There is no high grade neural foraminal narrowing. Visualized upper abdominal structures are unremarkable. No mediastinal mass, lymphadenopathy, or hematoma. Atherosclerosis of the aorta and coronary calcific ation are identified. There are extensive emphysematous changes of the lung parenchyma. No suspicious masses or nodules. De pendent atelectatic changes of scarring in the lung bases are noted. Trachea and central bronchi are patent. IMPRESSION: Moderate chronic compression deformity at T11. There is mild retropulsion. POS: [facility]
--- NOTE | 2017-07-02 20:40 | PDOC.PN ---
- Subjective Encounter Start Date: 07/02/17 Encounter Start Time: 15:30 Patient seen and examined. No new complaints. No overnight events - Objective Resuscitation Status: Resuscitation Status FULL:Full Resuscitation MAR Reviewed: Yes Vital Signs & Weight: Vital Signs (12 hours) Temp Pulse Pulse Resp BP BP Pulse Ox 07/02/17 18:45 86 16 97 07/02/17 16:00 97.9 F 78 18 148/70 H 94 L 07/02/17 14:00 97.5 F L 75 18 112/57 L 95 07/02/17 12:00 97.5 F L 75 18 112/57 L 95 07/02/17 10:40 97.6 F 75 18 152/70 H 95 07/02/17 10:25 97.4 F L 76 18 156/66 H 96 Weight Admit Weight 140 lb 1.6 oz Weight 134 lb 6.4 oz I&O: 07/01/17 07/02/17 07/03/17 06:59 06:59 06:59 Intake Total 1933 1200 1430 Output Total 1050 900 650 Balance 883 300 780 Result Diagrams: 07/03/17 04:46 07/03/17 04:46 EKG Reviewed by me: Yes (Tele SR) Phys Exam - Physical Examination Constitutional: NAD Respiratory: no wheezing, no rales, no rhonchi Cardiovascular: RRR, no rub Gastrointestinal: soft, non-tender, positive bowel sounds Musculoskeletal: no edema Dx/Plan - Plan DVT proph w/SCDs IMPRESION: 1. Chest pain - resolved with NTG, s/p Cath 2. Acute on chronic Anemia 3. Acute on chronic Hyponatremia - imrproving 4. Acute on chronic low back pain - XR showed compression fractures ?acute on chronic 5. CAD/ Ongoing Tobacco abuse/Iron def Anemia/Toxic Metabolic Encephalopathy - resolved PLAN: * Transfuse 1 unit PRBC * Consult GI/NSG * Cardio following * Cont ASA/Plavix * Cont Prednisone/Nitrates/BB * HH/BMP in AM Review of Systems - Review of Systems Respiratory: negative: Cough, Dry, Shortness of Breath, Hemoptysis, SOB with Excertion, Pleuritic Pain, Sputum, Wheezing Cardiovascular: negative: chest pain, palpitations, orthopnea, paroxysmal nocturnal dyspnea, edema, light headedness - Medications/Allergies Allergies/Adverse Reactions: Allergies Allergy/AdvReac Type Severity Reaction Status Date / Time alendronate sodium Allergy joint pains Verified 06/29/17 05:01 citalopram Allergy dizziness Verified 06/29/17 05:01 sulfacetamide Allergy Verified 06/29/17 05:01 tizanidine [From Zanaflex] Allergy Verified 06/30/17 11:03 tramadol Allergy headaches Verified 06/29/17 05:01 vit d3 Allergy bones hurt Uncoded 06/29/17 05:01 Medications: Current Medications Acetaminophen (Tylenol) 650 mg PO Q4H PRN PRN Reason: Headache/Fever or Pain Last Admin: 06/30/17 21:24 Dose: 650 mg Acetaminophen/Codeine Phosphate (Tylenol #3) 1 tab PO Q4H PRN PRN Reason: Pain Last Admin: 07/01/17 21:37 Dose: 1 tab Albuterol/Ipratropium (Duoneb) 3 ml NEB [id number] REPLACED BY [facility] Last Admin: 07/02/17 18:45 Dose: 3 ml Aspirin (Aspirin Chewable) 81 mg PO DAILY [facility] Last Admin: 07/02/17 10:29 Dose: 81 mg Atorvastatin Calcium (Lipitor) 10 mg PO HS REPL[facility] Last Admin: 07/01/17 21:36 Dose: 10 mg Calcium/Vitamin D (Caltrate 600 + Vit D) 1 tab PO BID-WM REPLACED BY [facility] Last Admin: 07/02/17 16:22 Dose: 1 tab Clopidogrel Bisulfate (Plavix) 75 mg PO DAILY [facility] Last Admin: 07/02/17 10:28 Dose: 75 mg Gabapentin (Neurontin) 300 mg PO BID [facility] Last Admin: 07/02/17 10:30 Dose: 300 mg Guaifenesin/Dextromethorphan (Robitussin Dm) 15 ml PO Q4H PRN PRN Reason: Cough Isosorbide Mononitrate (Imdur Er) 30 mg PO DAILY [facility] Last Admin: 07/02/17 10:32 Dose: 30 mg Metoprolol Tartrate (Lopressor) 12.5 mg PO BID [facility] Last Admin: 07/02/17 10:29 Dose: 12.5 mg Nitroglycerin (Nitrostat) 0.4 mg PO Q5MIN PRN PRN Reason: Chest Pain Ondansetron HCl (Zofran) 4 mg IVP Q6H PRN PRN Reason: Nausea/Vomiting Pantoprazole Sodium (Protonix) 40 mg PO BID [facility] Last Admin: 07/02/17 10:29 Dose: 40 mg Prednisone (Prednisone) 5 mg PO DAILY [facility] Last Admin: 07/02/17 10:30 Dose: 5 mg Senna (Senokot) 2 tab PO HSPRN PRN PRN Reason: Constipation Sodium Chloride (Flush - Normal Saline) 10 ml IVF Q12HR REPLACED BY [facility] Last Admin: 07/02/17 10:30 Dose: Not Given Sodium Chloride (Flush - Normal Saline) 10 ml IVF PRN PRN PRN Reason: Saline Flush
[2017-07-02] MEDS: Atorvastatin Calcium 10 MG TAB PO SCH (20:47)
[2017-07-02] MEDS: Acetaminophen/Codeine 30-300mg Tablet PO PRN (20:48)
[2017-07-03] MEDS: Acetaminophen/Codeine 30-300mg Tablet PO PRN (02:04)
--- NOTE | 2017-07-03 04:45 | CON ---
DATE OF CONSULTATION: 07/02/2017 REASON FOR CONSULTATION: Anemia (iron-deficiency anemia). CONSULTING PHYSICIAN: Dr. Zaina Miner. HISTORY OF PRESENT ILLNESS: Patient is a 81-year-old female with past medical history of chronic low er back pain, mitral regurgitation, anxiety, mild dementia, and COPD, who was initially admitted to [facility] with complaints of increasing chronic lower back pain and hypertensive urgency. During [facility] hospitalization, she was noted to have retrosternal chest pain that was only minimally compensate d with sublingual nitroglycerin administration. Due to her history of significant coronary artery di sease, she ultimately underwent a left heart catheterization for further risk stratification with wid gideon patent coronary vessels. However, also during this admission, she was noted to have a significan t anemia with characterization of this anemia further noted to be iron-deficiency anemia. Upon inter view with the patient, she denies any overt bleeding of any kind and further denies any episodes of h ematemesis, melena, or hematochezia. She also further denies any nausea, vomiting, fevers, chills, a bdominal pain, dysphagia, or odynophagia. Upon questioning and recommendations for possible EGD and colonoscopy, she was reluctant to proceed and refused any particular procedures at this time. REVIEW OF SYSTEMS: A 10-point review category review of systems was obtained with all responses nega tive except for the pertinent positives as listed in the HPI. PAST MEDICAL HISTORY: As per HPI. PAST SURGICAL HISTORY: Prior stent placed to the RCA. Left heart catheterization during this hospit alization, bilateral hip surgery. FAMILY HISTORY: Denies any GI malignancies. SOCIAL HISTORY: Smokes approximately 1 pack per day, but denies any alcohol or illicit drug use. CURRENT MEDICATIONS: Reviewed. ALLERGIES: ALENDRONATE, CELEXA, SULFA, ULTRAM, VITAMIN D3. PHYSICAL EXAMINATION: VITAL SIGNS: Temperature 97.9, pulse 86, blood pressure 148/70, respiratory rate 16, satting 97% on room air. GENERAL: Patient is lying in bed in no acute distress, alert and oriented x3. NECK: Supple. No JVD noted. CARDIOVASCULAR: Regular rate and rhythm with no discernible murmurs, gallops, or rubs. RESPIRATORY: Clear to auscultation bilaterally with no discernible wheezes or rales. ABDOMEN: Soft, nontender, nondistended. Normoactive bowel sounds. EXTREMITIES: No cyanosis, clubbing, or edema. LABORATORY DATA: CBC with white blood cell count of 9.5, hemoglobin 6.8, hematocrit 22.1, platelets 493. Chemistry with sodium of 136, potassium 4.0, chloride 108, CO2 of 23, BUN 17, creatinine 0.98, glucose 93. Iron 16, ferritin 17, TIBC 474. IMAGING DATA: No current GI imaging is available for review. ASSESSMENT AND PLAN: Patient is a 81-year-old female with past medical history of chronic lower back pain, mitral regurgitation, anxiety, mild dementia, and chronic obstructive pulmonary disease initia lly presenting with chest pain, now status post left heart catheterization, but noted to have an iron -deficiency anemia. Iron-deficiency anemia. Patient was initially admitted for cardiac workup related to chest pain that was not amenable to sublingual nitroglycerin and aspirin. Left heart catheterization did not show a ny significant narrowing of the coronary arteries; however, upon labs, she was noted to have a signif icant anemia as well as low iron, low ferritin, and high TIBC consistent with an iron-deficiency anem ia. She denies any current or recent GI bleeding of any kind. Upon further interview and recommenda tions of EGD and colonoscopy. She is reluctant to proceed at this time. Instead, she would rather " do these things as an outpatient because I am too tired." We stressed that without further evaluatio n, she might continue to bleed from a possible source within the GI tract, further complicating her c linical condition, but she continued to refuse any endoscopic intervention at this time. RECOMMENDATIONS: 1. Would continue to trend H&H and transfuse as necessary to maintain an H&H of 11/15. 2. Would continue to monitor clinically for signs of any GI bleeding with notification of the GI ser vice if this is present. 3. We will hold on endoscopic evaluation for this patient at this time given reluctance to proceed w ith any further invasive therapies/diagnostic modalities. If the patient does become more amenable, please reconsult GI service at that time. We will sign off at this time. Please call with any additional questions.
[2017-07-03 05:50] LABS: Anion Gap 13 mmol/L (10-20); BUN (Urea Nitrogen) 14 mg/dL (9.8-20.1); Calc. Creatinine Clearance 43 mL/min (70-130); Carbon Dioxide 22 mmol/L (23-31); Chloride 105 mmol/L (98-107); Estimated GFR-MDRD 52; Glucose 100 mg/dL (83-110); Potassium 4.1 mmol/L (3.5-5.1); Sodium 136 mmol/L (136-145)
[2017-07-03 07:42] LABS: Hemoglobin 8.6 g/dL (12.0-16.0); Platelet Count 434 thou/uL (130-400)
[2017-07-03] MEDS: Metoprolol Tartrate 25 MG TAB PO SCH (10:35)
[2017-07-03] MEDS: Clopidogrel Bisulfate 75 MG TAB PO SCH (10:35)
[2017-07-03] MEDS: Gabapentin 300 MG CAP PO SCH (10:35)
[2017-07-03] MEDS: Calcium Carbonate + Vit D 1 TAB PO SCH (10:35)
[2017-07-03] MEDS: predniSONE 5 MG TAB PO SCH (10:36)
--- NOTE | 2017-07-03 14:12 | PRG ---
DATE OF SERVICE: 07/03/2017 This is a 30 minute initial hospital visit note in which 30 minutes were spent in review the imaging, record, evaluation and examination of the patient, and formulation of plan. Greater than 50% of the time was spent in counseling on Sarina Mckinley. CHIEF COMPLAINT: Low back and left lower extremity pain, likely left L5 radiculopathy. HISTORY OF PRESENT ILLNESS: I reviewed the notes of my colleague Huy Brewster PA-C, and agree his content, but add the following below. Ms. Mckinley is a 81-year-old woman who has COPD and chronic nicotine use. She has recently, she sta gem for the last month has been placed on prednisone to treat the aforementioned low back and left lo wer extremity pain. This does go in the left L5 dermatome distribution. Review of an MRI from [facility] in 2016 demonstrates some foraminal stenosis at the left L5 segment. That was really the main area, of course the MRI is more than a year old. CT scan demonstrated an L2 and T11 anterior mi ddle column fractures, but these appear to be chronic and the patient endorses no pain in these areas . PHYSICAL EXAMINATION: She is alert, appropriate. She has full strength throughout her lower extremi ty myotomes and has tenderness to palpation in the left upper gluteal region consistent with where le ft L5 radiculopathy typically causes pain. IMPRESSION AND PLAN: I have let the patient know given her medical comorbidities, I would not recomm end surgery. I think pursuance of pain management options would be of benefit here for the patient. She states she has seen Dr. Henley in the past, she would like a second opinion. As such pk [place] note Dr. Myles Bone or Dr. Rudy Hollis, and Serge would be options as well that the patient could pursue. She is appreciative of the consultation. DIAGNOSES: 1. Low back and left lower extremity pain, likely lumbar radiculopathy. 2. History of thoracic and lumbar anterior middle column fractures likely osteopenia versus osteopor osis. 3. Chronic obstructive pulmonary disease.
[2017-07-03 15:20] VITALS: BMI 21.7
--- NOTE | 2017-07-03 15:56 | DIS ---
DATE OF DISCHARGE: 07/03/2017 DISCHARGE DISPOSITION: Home. FOLLOWUP: 1. Follow up with primary care physician, Dr. Murphy in 1 week. 2. Follow up with outpatient pain management. 3. Follow up with Gastroenterology doctors Dr. Orr. 4. Follow up with Dr. Cazares as needed. 5. Follow up with Cardiology, Dr. Reddy in 2 weeks. ALLERGIES: The patient is allergic to ALENDRONATE, CITALOPRAM, SULFA, TIZANIDINE, and TRAMADOL. The patient was seen on the day of discharge. Denies any new complaints, no chest pain, shortness of breath, palpitations. DISCHARGE MEDICATIONS: As same as admission medications. Patient will continue, 1. Aspirin 81 mg daily. 2. Lipitor 10 mg at bedtime. 3. Calcium vitamin D b.i.d. 4. Plavix 75 mg daily. 5. Lasix 20 mg daily. 6. Gabapentin 300 mg three times daily. 7. Imdur ER 30 mg daily. 8. Metoprolol tartrate 12.5 mg b.i.d. 9. Sublingual nitroglycerin as needed. 10. Protonix 40 mg daily. 11. Prednisone 5 mg daily. INPATIENT CONSULTANTS: 1. Cardiology, Dr. Reddy. 2. Gastroenterology, Dr. Orr. 3. Neurosurgery, Dr. Cazares. BRIEF HOSPITAL COURSE: The patient is a 81-year-old white female with coronary artery disease, who p resented to the emergency room with chest discomfort. Her workup in the emergency room was consisten t with chest discomfort with hypertensive urgency and hyponatremia. Please refer to the history and physical dated 06/29/[address] Miner for further details. The patient was admitted to the telemetry unit with a diagnosis of chest discomfort that resolved wit h nitroglycerin and aspirin. The chest pain was probably precipitated by hypertensive urgency. She was seen by Cardiology, Dr. Reddy. Her symptoms were probably consistent with unstable angina. [facility] catheterization was performed by Dr. Reddy on 07/01/2017 that showed patent RCA stent. Stable mild coronary artery disease on the left system. Medical therapy was recommended. 1. There was a concern of pseudoaneurysm next morning, for which an ultrasound of the right groin wa s done that was negative for pseudoaneurysm. 2. Patient dropped hemoglobin to 6.8 compared to 8.3 on admission. The patient was evaluated by Gas troenterology, Dr. Orr. Iron studies showed iron of 16 with TIBC 474, and ferritin of 17.4. Iron infusion was administered. Due to hemoglobin of 6.8, she received 1 unit of PRBC. The patient was e valuated by Gastroenterology, Dr. Orr. She declined endoscopic evaluation. She will follow up jayme Orr as outpatient. 3. The patient had worsening acute on chronic low back pain. She had mild delirium with Zanaflex th at was administered earlier during the hospital course. Please note that Zanaflex was mentioned as o ne of her home medications. After Zanaflex discontinuation her mentation was back to baseline. Due to worsening back pain, she underwent x-rays of the back followed by CT scans of the thoracic and lum bar spine per Neurosurgery. Dr. Cazares evaluated the patient today and did not recommend any TLSO br rosalino. Outpatient Pain Clinic was recommended. FINAL DIAGNOSES: 1. Chest discomfort, resolved with nitroglycerin, status post cardiac catheterization. 2. Hypertensive urgency on admission, improved. 3. Acute on chronic anemia. Patient declined endoscopic evaluation. 4. Acute on chronic hyponatremia, improved with IV hydration. Her sodium on admission was 124, at d ischarge is 136. 5. Coronary artery disease, status post right coronary artery stent. 6. Ongoing tobacco abuse. The patient was extensively counseled. 7. Iron deficiency anemia. 8. Toxic metabolic encephalopathy secondary to Zanaflex, resolved. 9. Lumbar radiculopathy causing low back and left lower extremity pain. 10. Osteoporosis. 11. Mild cognitive deficit. 12. Chronic obstructive pulmonary disease. 13. Hyponatremia, resolved. 14. Chronic kidney disease, stage 3. 15. Elevated parathyroid hormone at 91. Primary care physician advised to follow. 16. Thrombocytosis, probably secondary to anemia. 17. Iron deficiency. Plan of care was discussed with the patient in detail. She stated understanding. Total time coordinating the discharge of this patient was 38 minutes.
[2017-07-03 16:06] VITALS: BP 112/56; TEMP 97.8
--- NOTE | 2017-07-03 16:37 | PDOC.CTH ---
Cardiology Progress Note - Subjective She is doing well. She denies any chest pain, tightness, pressure, SOB. - Objective Vital Signs Temp Pulse Resp BP Pulse Ox 07/03/17 16:00 97.8 F 83 18 112/56 L 96 07/03/17 11:20 97.3 F L 73 17 128/64 97 07/03/17 08:00 97.8 F 87 16 96 07/03/17 07:54 82 18 97 07/03/17 04:45 97 Admit Weight 140 lb 1.6 oz Weight 134 lb 9.6 oz 07/02/17 07/03/17 07/04/17 06:59 06:59 06:59 Intake Total 1200 2030 360 Output Total 900 1450 Balance 300 580 360 - Physical Examination General/Neuro: alert & oriented x3, NAD Neck: no JVD present Lungs: CTA, unlabored respirations Heart: RRR Abdomen: NT/ND Extremities: other: (no edema.) - Telemetry Telemetry Rhythm: NSR - Labs Result Diagrams: 07/03/17 04:46 07/03/17 04:46 Troponin/CKMB CK-MB (CK-2) 3.1 ng/mL (0-6.6) 06/29/17 02:15 Troponin I Less than 0.010 ng/mL (< 0.028) 06/29/17 08:48 - Assessment/Plan 1. Chest pain 2. Known CAD, RCA stent in 2014 3. HTN, better controlled. 4. Chronic back pain. 5. Anemia, chronic, drop is expected from [id number]. Agree with transfusion. PLAN: - Hgb significantly improved after 1 unit PRBC. - Widely patent coronaries and RCA stent. - May discharge home at any time from cardiac perspective.
--- NOTE | 2017-07-12 12:36 | EKG ---
Test Reason : CHEST PAIN Blood Pressure : / mmHG Vent. Rate : 085 BPM Atrial Rate : 085 BPM P-R Int : 148 ms QRS Dur : 080 ms QT Int : 352 ms P-R-T Axes : 051 027 069 degrees QTc Int : 418 ms Normal sinus rhythm Possible Left atrial enlargement Borderline ECG Confirmed by ALONDRA PEPPER, RENETTA ([id number]), publishing editor MICHELLE SANCHEZ ([id number]) on 07/12/2017 12:35:54 PM Referred By: Confirmed By:RENETTA CANTU MD
== END 2017-07-03 16:03 | disposition home or self-care (01) | DRG 286 ==
LOC: ERS 01:48 → 2NO 03:08
PROVIDERS: ADMIT Internal Medicine; ATTEND Internal Medicine
PROC: 30233N1 Transfusion of Nonautologous Red Blood Cells into Peripheral Vein, Percutaneous Approach (ICD-10-PCS; 2017-06-29)
PROC: 4A023N7 Measurement of Cardiac Sampling and Pressure, Left Heart, Percutaneous Approach (ICD-10-PCS; principal; 2017-07-01)
PROC: B2111ZZ Fluoroscopy of Multiple Coronary Arteries using Low Osmolar Contrast (ICD-10-PCS; 2017-07-01)
PROC: B2151ZZ Fluoroscopy of Left Heart using Low Osmolar Contrast (ICD-10-PCS; 2017-07-01)
DX: I16.0 Hypertensive urgency (principal); G92 Toxic encephalopathy; F03.90 Unspecified dementia, unspecified severity, without behavioral disturbance, psychotic disturbance, mood disturbance, and anxiety; D62 Acute posthemorrhagic anemia; D50.0 Iron deficiency anemia secondary to blood loss (chronic); E87.1 Hypo-osmolality and hyponatremia; J44.9 Chronic obstructive pulmonary disease, unspecified; M48.54XA Collapsed vertebra, not elsewhere classified, thoracic region, initial encounter for fracture; I25.110 Atherosclerotic heart disease of native coronary artery with unstable angina pectoris; M54.5 Low back pain; G89.29 Other chronic pain; Z95.5 Presence of coronary angioplasty implant and graft; F41.9 Anxiety disorder, unspecified; Z79.52 Long term (current) use of systemic steroids; Z79.82 Long term (current) use of aspirin; M81.0 Age-related osteoporosis without current pathological fracture; I12.9 Hypertensive chronic kidney disease with stage 1 through stage 4 chronic kidney disease, or unspecified chronic kidney disease; N18.3 Chronic kidney disease, stage 3 (moderate); D47.3 Essential (hemorrhagic) thrombocythemia; I73.9 Peripheral vascular disease, unspecified; I34.0 Nonrheumatic mitral (valve) insufficiency; Z86.73 Personal history of transient ischemic attack (TIA), and cerebral infarction without residual deficits; F17.210 Nicotine dependence, cigarettes, uncomplicated; T42.8X5A Adverse effect of antiparkinsonism drugs and other central muscle-tone depressants, initial encounter; Y92.239 Unspecified place in hospital as the place of occurrence of the external cause
CPT/HCPCS: 36415; 36430; 70450; 71045; 72070; 72100; 72128; 72131; 76942; 80048; 80053; 80061; 82533; 82550; 82553; 82607; 82728; 82746; 83540; 83550; 83735; 83880; 83930; 83970; 84100; 84484; 85014; 85018; 85025; 85049; 86850; 86900; 86901; 93005; 93306; 93458; 93926; 94640; 94760; 96360; 99152; A4216; C1769; J1644; J1650; J2001; J2250; J2916; J3010; J7050; J7506; J7620; P9016

== ENCOUNTER 2017-10-26 12:47 | Observation (INO) | payer MEDICARE ==
[2017-10-26 13:46] LABS: #Eosinphils 0.1 thou/uL (0.0-0.7); #Lymphocytes 1.4 thou/uL (1.20-3.40); #Monocytes 0.6 thou/uL (0.11-0.59); #Neutrophils 6.3 thou/uL (1.40-6.50); %Basophils 0.2 % (0.0-1.0); %Eosinophils 0.6 % (0.0-10.0); %Lymphocytes 16.3 % (21.0-51.0); %Monocytes 7.4 % (0.0-10.0); %Neutrophils 75.4 % (42.0-75.0); Hemoglobin 7.5 g/dL (12.0-16.0); Mean Corpuscular HGB CONC 30.9 g/dL (32.0-36.0); Mean Corpuscular Hemoglobin 22.2 pg (27.0-31.0); Mean Corpuscular Volume 71.9 fL (78.0-98.0); Platelet Count 428 thou/uL (130-400); RBC Distribution Width 17.3 % (11.5-14.5); Red Blood Cell (RBC) Count 3.38 mill/uL (4.20-5.40); White Blood Cell (WBC) Count 8.3 thou/uL (4.8-10.8)
[2017-10-26 14:02] LABS: ALT (SGPT) 7 U/L (8-55); AST (SGOT) 11 U/L (5-34); Albumin 3.5 g/dL (3.4-4.8); Alkaline Phosphatase 59 U/L (40-150); Anion Gap 13 mmol/L (10-20); BUN (Urea Nitrogen) 32 mg/dL (9.8-20.1); Bilirubin, Total 0.2 mg/dL (0.2-1.2); CK (CPK) 67 U/L (29-168); Calc. Creatinine Clearance 0 mL/min (70-130); Calcium 8.5 mg/dL (7.8-10.44); Carbon Dioxide 22 mmol/L (23-31); Chloride 100 mmol/L (98-107); Estimated GFR-MDRD 43; Globulin 2.5 g/dL (2.4-3.5); Glucose 94 mg/dL (83-110); Sodium 131 mmol/L (136-145)
[2017-10-26 14:04] LABS: Anisocytosis SLIGHT = 6-15 cells (100X) (0-5/hpf); Elliptocytes SLIGHT = 2-5 cells (100X) (0-1/hpf); Hypochromia SLIGHT = 6-15 cells (100X) (0-5/hpf); MDiff Complete? YES; Microcytosis SLIGHT = 6-15 cells (100X) (0-5/hpf); Ovalocytes SLIGHT = 2-5 cells (100X) (0-1/hpf); PLT Morphology Comment Appears Increased; Polychromasia MODERATE = 3-4 cells (100X) (0-2/hpf); Target Cells SLIGHT = 2-5 cells (100X) (0-1/hpf)
[2017-10-26 14:05] LABS: CKMB 2.4 ng/mL (0-6.6); Troponin I Less than 0.010 ng/mL (< 0.028)
--- NOTE | 2017-10-26 14:37 | RAD ---
PORTABLE CHEST: Date: 10/26/17 HISTORY: Chest pain. COMPARISON: 06/29/17. FINDINGS: Lungs show no evidence of infiltrate. No evidence of vascular congestion or effusion. Heart size uppe r normal and stable. There has been resection of the distal left clavicle, which is unchanged. IMPRESSION: No acute finding or interval change noted. POS: [facility]
[2017-10-26 15:34] LABS: Bilirubin Negative (Negative); Blood, Urine Moderate (Negative); Clarity CLEAR (Clear); Glucose, Urine (Dipstick) Negative (Negative); Leukocyte Negative (Negative); Nitrite Negative (Negative); Protein, Urine (Dipstick) Negative (Neg-Trace); Specific Gravity, Urine 1.009 (1.002-1.036); Urobilinogen 0.2 mg/dL (0.2-1.0)
[2017-10-26 15:39] LABS: Bacteria/HPF None Seen HPF (None Seen); Hyaline Casts/LPF 0-3 HYALINE CAST LPF (0-3 Hyaline); Pathc Cast-AUWi Flag 0.43 (0-2.49); Squamous Epithelial None Seen HPF (0-3); WBC/HPF None Seen HPF (0-3)
[2017-10-26 16:33] VITALS: BMI 23.0
[2017-10-26] MEDS ORDERED: Nitroglycerin 0.4 MG TAB (25 Tab Bottle) SL PRN (18:14)
[2017-10-26 18:22] LABS: Hemoglobin 7.9 g/dL (12.0-16.0)
[2017-10-26 18:49] LABS: Troponin I Less than 0.010 ng/mL (< 0.028)
[2017-10-26] MEDS: Gabapentin 300 MG CAP PO SCH (20:00)
[2017-10-26] MEDS: Acetaminophen/Codeine 30-300mg Tablet PO PRN (20:00)
[2017-10-26] MEDS: Metoprolol Tartrate 25 MG TAB PO SCH (20:01)
[2017-10-26] MEDS: Atorvastatin Calcium 10 MG TAB PO SCH (20:01)
[2017-10-26 20:51] LABS: Troponin I 0.012 ng/mL (< 0.028)
--- NOTE | 2017-10-27 00:48 | HP ---
DATE OF SERVICE: 10/26/2017 CHIEF COMPLAINT: Chest pain. PRIMARY CARE PHYSICIAN: Dr. Murphy. HISTORY OF PRESENT ILLNESS: This is an 82-year-old female with known coronary artery disease and history of stents with catheterization in June of this year (patent stent, mild left sided disease), hypertension, chronic back pain, chronic anemia that has not had a recent GI evaluation, who presents to the emergency room after chest pain and followed by brief syncope while at [facility]. The patient reports that she woke up feeling not well today after a poor night of sleep. While she was in [facility], she had an episode of chest pain in the center of her chest only described as "hurts" and felt short of breath. She has nitroglycerin and took one, after which she passed out briefly. When she came to, she denies any confusion, bowel or bladder dysfunction. Her pharmacist was at [facility] with her and gave her 2 more nitroglycerin for what she describes as typical angina symptoms. EMS was called and patient reports that when they arrived, her pain was gone. She had nausea, but no vomiting, some shortness of breath, no radiation of the pain. No precipitants for the chest pain and it was relieved with nitroglycerin. Her last use of nitroglycerin was about a week ago and she generally only has to take one tablet for relief of symptoms. She reports today is unusual as she required 3 nitroglycerin tablets. In the emergency department, the patient received 324 mg of aspirin and Hospitalist called for admission for unstable angina. ALLERGIES TO MEDICATIONS: 1. ALENDRONATE. 2. CELEXA. 3. SULFA 4. TRAMADOL. 5. VITAMIN D. CURRENT MEDICATIONS: Reconciled with the patient. 1. Lasix 20 mg once daily. 2. Clopidogrel 75 mg daily. 3. Metoprolol tartrate 25 mg b.i.d. 4. Aspirin 81 mg daily. 5. Pantoprazole 40 mg daily. 6. Atorvastatin 10 mg at bedtime. 7. Gabapentin 300 mg tablets 2 in the morning, 1 at noon, 2 at night. 8. Nitroglycerin 0.4 mg sublingual as needed. 9. Imdur 30 mg once daily. 10. Tylenol No. 3 two tablets every 6 hours as needed. 11. Prednisone 7.5 mg daily. PAST MEDICAL HISTORY: 1. Coronary artery disease with history of stents. 2. Peripheral vascular disease with right leg stent. 3. Chronic anemia with transfusion during hospitalization in 06/2017. 4. Chronic back pain on Tylenol No. 3. 5. Elevated parathyroid levels identified during hospitalization in June. 6. Insomnia secondary to pain PAST SURGICAL HISTORY: 1. A stent in her right leg. 2. Appendectomy. 3. Hysterectomy. 4. Bilateral hip replacements. SOCIAL HISTORY: The patient lives alone. Her surrogate decision maker is her son, Raul. She smokes 1 pack of tobacco per day, denies alcohol. FAMILY HISTORY: Significant for dad who of an OR at age 65 and a mom who at 89. REVIEW OF SYSTEMS: Positive for poor sleep secondary to chronic pain, leg pain with ambulation for years, nocturnal leg pain for the past few weeks. She denies any fevers, chills, abdominal pain, bowel changes. All remaining review of systems are reviewed and negative. PHYSICAL EXAMINATION: VITAL SIGNS: Blood pressure 156/65, temperature 97.8, pulse 74, respirations 24 , saturations 94% on 2 liters, and on arrival to the emergency room was 88% on room air. GENERAL: Awake, alert, responsive, in no apparent distress, able to answer questions without difficulty. HEENT: Pupils are equal and round. Oral mucosa is pink and moist. NECK: Supple, nontender. LYMPHATICS: No palpable cervical or supraclavicular lymphadenopathy. LUNGS: Clear to auscultation bilateral with good air movement. HEART: Normal S1, S2, regular rate and rhythm, no audible murmurs. ABDOMEN: Soft. Present bowel sounds. Nontender, nondistended. EXTREMITIES: No edema. SKIN: No visible rashes. NEUROLOGIC: Moves arms and legs equally. No focal deficits. PSYCHIATRIC: Euthymic, linear, logical, goal directed thought process. LABORATORY DATA AND IMAGING: Labs reviewed today. 1. CBC: 8.3, 7.5, 24.3, 428. 2. Chemistry: 131, 4, 100, 22, 32, 1.2 with a glucose of 94. 3. LFTs are normal. Troponin negative. 4. EKG is personally reviewed, sinus rhythm, normal axis, no ST changes. 5. Chest x-ray: No acute changes, personally reviewed. IMPRESSION: 1. Unstable angina in the context of worsening symptoms yesterday and known coronary artery disease, requiring more nitroglycerin than usual. 2. Anemia, acute on chronic based on last hospitalization in June, symptomatic with poor energy and likely contributing to angina. The patient declined GI evaluation during last hospitalization and did not follow up in the outpatient setting - she is agreeable for evaluation now. She is on dual anti- platelet therapy without overt change in stool. 3. Chronic back pain on chronic steroids, not optimally controlled. 4. Hypertension. 5. Dyslipidemia. 6. Chronic insomnia. 7. Elevated parathyroid level, has not been evaluated. 8. Leg pain PLAN: 1. Observation status in the hospital. 2. Telemetry monitoring. Obtain further troponins, and continue her usual dual antiplatelet therapy, beta yesenia, long-acting nitrate, statin. We will also consult Cardiology. 3. I'm concerned she is symptomatic from the anemia and that might be triggering the anginal symptoms. I discussed with patient the risks and benefits to a blood transfusion given that she is currently lower than she was back in June, and hemoglobin is less than 8. The patient is agreeable to transfusion if it is needed. Will type and screen and repeat hemoglobin, and proceed with transfusion if she remains less than 8. Will order iron and ferritin levels for the morning and we will also request GI consultation. She is agreeable to consider endoscopy for further evaluation. 4. Continue her gabapentin and Tylenol No. 3. She will benefit from an outpatient pain management consult as her pain is inadequately relieved. Will also continue her chronic steroid at usual dose, no indication for stress dosing of this. 5. Leg pain, outpatient evaluation of this is warranted. 6. Deep venous thrombosis prophylaxis. The patient is ambulatory and on dual antiplatelet therapy. We will use sequential compression devices as tolerated. Hold on pharmacologic DVT prophylaxis due to anemia and anticipated GI evaluation. 7. Gastrointestinal prophylaxis not indicated. She is on a PPI. We will continue that. 8. Code status is FULL and surrogate decision maker is her son as noted above. I reviewed the plan of care with the patient who demonstrates understanding and agrees. No questions or further needs at end of evaluation. CHANDLER
[2017-10-27 04:45] LABS: #Eosinphils 0.1 thou/uL (0.0-0.7); #Lymphocytes 1.6 thou/uL (1.20-3.40); #Monocytes 0.6 thou/uL (0.11-0.59); #Neutrophils 4.1 thou/uL (1.40-6.50); %Basophils 0.7 % (0.0-1.0); %Eosinophils 1.9 % (0.0-10.0); %Lymphocytes 24.6 % (21.0-51.0); %Monocytes 9.8 % (0.0-10.0); %Neutrophils 63.1 % (42.0-75.0); Hemoglobin 9.7 g/dL (12.0-16.0); Mean Corpuscular HGB CONC 31.6 g/dL (32.0-36.0); Mean Corpuscular Hemoglobin 23.6 pg (27.0-31.0); Mean Corpuscular Volume 74.8 fL (78.0-98.0); Mean Platelet Volume 7.2 fL (7.4-10.4); Platelet Count 471 thou/uL (130-400); RBC Distribution Width 18.9 % (11.5-14.5); White Blood Cell (WBC) Count 6.4 thou/uL (4.8-10.8)
[2017-10-27 04:53] LABS: Anion Gap 11 mmol/L (10-20); BUN (Urea Nitrogen) 26 mg/dL (9.8-20.1); Calc. Creatinine Clearance 37 mL/min (70-130); Calcium 9.2 mg/dL (7.8-10.44); Carbon Dioxide 25 mmol/L (23-31); Chloride 106 mmol/L (98-107); Estimated GFR-MDRD 42; Glucose 94 mg/dL (83-110); Iron 100 ug/dL (50-170); Potassium 4.3 mmol/L (3.5-5.1); Sodium 138 mmol/L (136-145)
[2017-10-27] MEDS: Gabapentin 300 MG CAP PO SCH ×3 (08:09→20:10)
[2017-10-27] MEDS: Furosemide 20 MG TAB PO SCH (08:10)
[2017-10-27] MEDS: predniSONE 5 MG TAB PO SCH (08:14)
[2017-10-27] MEDS: predniSONE 1 MG TAB PO SCH (08:14)
[2017-10-27] MEDS ORDERED: Clopidogrel Bisulfate 75 MG TAB PO SCH (09:00)
[2017-10-27] MEDS: Metoprolol Tartrate 25 MG TAB PO SCH ×2 (12:09→20:10)
--- NOTE | 2017-10-27 17:01 | CON ---
DATE OF SERVICE: 10/27/2017 REASON FOR CONSULTATION: Chest pain. HISTORY OF PRESENT ILLNESS: Mrs. Mckinley is a pleasant 82-year-old white female, very well known to myself, who has been following for some years. In 2014, she had a stent to the right coronary arter y. She has been having a few episodes of chest pain recently, so in June of this year, I took her b ack to the microbiology lab technician and it showed her right coronary was widely patent. Her stent was widely patent. She did not require any intervention at that time. Her left system had mild and stable disease. S he was at [facility], she had an episode of chest pain, took 1 sublingual nitro which made her pass out. EMS was called and she was brought in. Here, she was found to have a low hemoglobin level at 7.5. She was given 1 unit of blood and it went up to 9.7. Cardiology is being consulted for her episode o f syncope and chest pain. Currently, her troponins were completely undetectable. She denies any mor e chest pain. PAST MEDICAL HISTORY: 1. Coronary artery disease as above. 2. Peripheral vascular disease with stents in the right leg. 3. Chronic anemia. 4. Chronic back pain. 5. Elevated PTH levels. 6. Insomnia. SURGICAL HISTORY: 1. Peripheral intervention to her right leg. 2. Appendectomy. 3. Hysterectomy. 4. Bilateral hip replacement. SOCIAL HISTORY: Continues to smoke a pack a day. No alcohol or drugs. FAMILY HISTORY: Father of [place] at age 65, mom at age 89. OUTPATIENT MEDICATIONS: Include, 1. Lasix 20 mg a day. 2. Clopidogrel 75 mg. 3. Metoprolol 25 mg b.i.d. 4. Aspirin 81 a day. 5. Pantoprazole 40 mg a day. 6. Atorvastatin 10 mg at bedtime. 7. Gabapentin. 8. Nitroglycerin sublingual p.r.n. 9. Imdur 30 mg a day. 10. Tylenol No. 3. 11. Prednisone 7.5 mg a day. ALLERGIES: 1. ALENDRONATE. 2. CELEXA. 3. SULFA DRUGS. 4. TRAMADOL. 5. VITAMIN D. REVIEW OF SYSTEMS: A 12-point review of systems was done and is all negative unless stated in histor y of present illness. She does admit to bilateral lower extremity heaviness. PHYSICAL EXAMINATION: VITAL SIGNS: Temperature 98.3, pulse 71, respiration rate 20, satting 93% on room air, blood pressur e 131/58. Her tilt goes from 194 supine to 147 standing. GENERAL: Awake, alert, and oriented x3, in no distress. HEENT: Normocephalic, atraumatic. NECK: Supple. LUNGS: Clear. CARDIOVASCULAR: S1, S2, no S3, S4, no murmurs. ABDOMEN: Soft with bowel sounds. EXTREMITIES: Trace edema. SKIN: Warm and dry. LABORATORY WORK: Reviewed and a CBC with hemoglobin of 7.5 up to 9.7 after blood transfusion. Plate let count was normal. Chemistries: Sodium is 131, back up to 138 after transfusion and creatinine 1 .2 up to 1.23. Troponins are negative x3. Ferritin was normal. Total bilirubin was normal. AST an d ALT were normal, alkaline phosphatase normal. Chest x-ray was unremarkable. EKG was unremarkable. ASSESSMENT AND PLAN: 1. Syncope: Most likely related to taking nitro for chest pain. 2. Chest pain: Most likely related to having a low hemoglobin. She had a recent catheterization th at showed widely patent arteries and patent stent to the right. This was just 3-4 months ago and she has got completely negative troponins. No need for any further risk stratification. Would actually recommend she have a GI consultation which Dr. Lester already put in and we are awaiting their recom mendations to evaluate where this bleeding might be coming from. She may need to be off of this Plav ix for stent to her heart was long enough or we can stop it. Her right coronary stent was in 2015 an d her peripheral intervention was in September of 2015 as well. Thank you for letting us participate in the care of your patient. We will follow.
[2017-10-27] MEDS ORDERED: GoLYTELY 4,000 ml Bottle PO SCH (18:00)
--- NOTE | 2017-10-27 18:00 | PDOC.PN ---
- Subjective Encounter Start Date: 10/27/17 Encounter Start Time: 14:00 Subjective: f/u for syncope. No recurrent sx. s/p 1u PRBC's after anemia noted. -: No melena or hematemesis. Last endoscopy unknown. No CP/SOB. - Objective Resuscitation Status: Resuscitation Status FULL:Full Resuscitation MAR Reviewed: Yes Vital Signs & Weight: Vital Signs (12 hours) Temp Pulse Resp BP BP BP Pulse Ox 10/27/17 15:28 98.3 F 71 20 131/58 L 93 L 10/27/17 11:29 98.1 F 78 20 111/64 97 10/27/17 08:05 98.8 F 76 24 H 10/27/17 07:42 98.8 F 76 24 H 171/76 H 147/63 H 194/77 H 95 10/27/17 07:41 91 L Weight Weight 142 lb 12.8 oz I&O: 10/26/17 10/27/17 10/28/17 06:59 06:59 06:59 Intake Total 940 600 Output Total 400 1950 Balance 540 -1350 Result Diagrams: 10/27/17 04:26 10/27/17 04:26 Additional Labs: Laboratory Tests 10/26/17 10/26/17 10/26/17 13:31 13:31 18:14 Hgb 7.5 L 7.9 L MCV 71.9 L Plt Count 428 H Sodium 131 L BUN 32 H Creatinine 1.20 H Iron Ferritin 10/27/17 10/27/17 04:26 04:26 Hgb MCV Plt Count Sodium BUN Creatinine Iron 100 Ferritin 16.48 Radiology Reviewed by me: Yes (PCXR - no acute process) EKG Reviewed by me: Yes (Tele - SR) Phys Exam - Physical Examination Constitutional: NAD HEENT: PERRLA, sclera anicteric, oral pharynx no lesions Neck: no nodes, no JVD, supple, full ROM Respiratory: no wheezing, no rales, no rhonchi, clear to auscultation bilateral S1, S2 Cardiovascular: RRR, no significant murmur, no rub, gallop Gastrointestinal: soft, non-tender, no distention, positive bowel sounds Musculoskeletal: no edema, pulses present Neurological: non-focal, normal sensation, moves all 4 limbs Psychiatric: normal affect, A&O x 3 Skin: no rash, normal turgor, cap refill <2 seconds Dx/Plan (1) Syncope Code(s): R55 - SYNCOPE AND COLLAPSE Status: Acute Comment: Likely iatrogenic with Nitroglycerin in conjunction with anemia, hold nitro (2) Microcytic anemia Code(s): D50.9 - IRON DEFICIENCY ANEMIA, UNSPECIFIED Status: Chronic Comment : Serum iron level normal, plan for EGD/colonoscopy, serial H/H (3) LETICIA (acute kidney injury) Code(s): N17.9 - ACUTE KIDNEY FAILURE, UNSPECIFIED Status: Acute Comment: Avoid nephrotoxic meds and limit contrast exposure, repeat creatinine in am (4) Hypertension Code(s): I10 - ESSENTIAL (PRIMARY) HYPERTENSION Status: Chronic Qualifiers: Comment: Stable, continue home BP regimen (5) Tobacco abuse Code(s): Z72.0 - TOBACCO USE Status: Chronic Comment: Tobacco cessation resources - Plan out of bed/ambulate, DVT proph w/SCDs Stable overall -: Serial H/H monitoring -: Plan for EGD/colonoscopy 10/28/17 -: Protonix 40mg daily -: AM lab: BMP, H/H * .
[2017-10-27] MEDS: Atorvastatin Calcium 10 MG TAB PO SCH (20:10)
[2017-10-27] MEDS ORDERED: Ondansetron ODT 4 MG TAB PO PRN (22:34)
[2017-10-28] MEDS: Acetaminophen/Codeine 30-300mg Tablet PO PRN ×3 (00:16→14:01)
--- NOTE | 2017-10-28 03:24 | CON ---
DATE OF CONSULTATION: 10/27/2017 HISTORY OF PRESENT ILLNESS: Ms. Mckinley is an 82-year-old female who was admitted to the hospital f or chest pain yesterday. She had previous stents in the right heart. With recurrent episodes of [place] [facility] pain and actually 06/2017, she underwent a heart catheterization that was normal. She has had a s ignificant anemia with hemoglobin 7-8 range at times and with microcytic indices. At her last visit here in the hospital in June, upper and lower endoscopy were recommended as she was shown to be iron deficient, but she opted to defer that and was going to think about doing it as an outpatient, but shanti coronado never followed through. This admission, she had a brief syncopal or presyncopal episode at [facility] and then had some chest pain. It seems after she took her nitroglycerin for the chest pain as wh en she passed out. The patient has had no further pain and had normal troponin. She has been reeval uated by Cardiology who feels that probably her episodes were related to her severe anemia. They hav e not felt the need for further cardiac intervention, which seems quite reasonable. The patient has had an echocardiogram in June as well, which showed no evidence of aortic stenosis and a normal ejec tion fraction. Talking to the patient, she has had reflux. She takes Protonix, where she is on dysphagia or odynoph agia. No weight loss, change in appetite, abdominal pain or change in bowel function. Denies any me amadeo, hematochezia or hematemesis. She is on Eliquis. Her hemoglobin was normal back in 2015 at 12. 4, since 12/2015 and ranging to 11.7 and 9 up until this spring, she was 7.7 on last spring. She got down to 6.8 on 07/02/2017, and was transfused, 8.6 on 07/03/2017. She was here on 09/24/2017 and rodríguez d a hemoglobin of 8.4. She was admitted yesterday and hemoglobin was 7.5 after a unit of blood, she is 9.7 today. MCV 71, platelet count 428. Comprehensive metabolic profile normal. TSH normal. B12 and folate normal. Iron documented low at 16 on 07/01/2017 with a ferritin of 17 at that time. PAST MEDICAL HISTORY: Coronary artery disease with history of previous stent; peripheral vascular di sease with stent in the right leg; chronic anemia, transfused 06/2017; iron deficiency; chronic back pain, Tylenol No. 3; elevated parathyroid hormone, insomnia secondary to pain. PAST SURGICAL HISTORY: A stent in her right leg, appendectomy, hysterectomy, total hip replacements. She has a remote history of colonoscopy in 1999 shows she is normal. SOCIAL HISTORY: She smokes a pack per day. FAMILY HISTORY: Dad at age 65 of [place]. Mother at age 89. HOME MEDICATIONS: Lasix, Plavix, metoprolol, aspirin, Protonix, atorvastatin, gabapentin, nitroglyce rin, Imdur, Tylenol, and prednisone. ALLERGIES: ALENDRONATE, CELEXA, SULFA, TRAMADOL, AND VITAMIN D. MEDICATIONS HERE: Tylenol No. 3, Plavix, Lipitor, Lasix, Neurontin, Imdur, Lopressor, Nitrostat, Pro tonix, prednisone. PHYSICAL EXAMINATION: GENERAL: The patient is resting in bed. She is sitting up in a chair. VITAL SIGNS: Temperature is 98.3, pulse 71, blood pressure 131/58. LUNGS: Clear. HEART: Regular rate and rhythm without clicks or murmurs. ABDOMEN: Soft, nontender. There is no rebound. There is no guarding. EXTREMITIES: No clubbing, cyanosis or edema. LABORATORY DATA: As per HPI. ASSESSMENT: Iron deficiency anemia documented, worsening over the past couple of years. She has bee n on Plavix since 2015 and that is about that time all this started, but she has not had any recent e valuations over the couple of admissions secondary to symptomatic anemia. PLAN: Upper and lower endoscopy tomorrow. If this is normal, I will place her on iron supplementati on IV or p.o.
[2017-10-28 04:44] LABS: Hemoglobin 9.1 g/dL (12.0-16.0); Platelet Count 441 thou/uL (130-400)
[2017-10-28 04:51] LABS: Anion Gap 14 mmol/L (10-20); BUN (Urea Nitrogen) 21 mg/dL (9.8-20.1); Calc. Creatinine Clearance 40 mL/min (70-130); Calcium 8.5 mg/dL (7.8-10.44); Carbon Dioxide 28 mmol/L (23-31); Chloride 98 mmol/L (98-107); Estimated GFR-MDRD 45; Glucose 93 mg/dL (83-110); Potassium 3.8 mmol/L (3.5-5.1); Sodium 136 mmol/L (136-145)
[2017-10-28] MEDS ORDERED: Ondansetron HCl/PF 4 MG/2 ML Vial IVP PRN ×2 (11:33→12:35)
[2017-10-28] MEDS ORDERED: PROPOFOL 200 MG/20 ML VIAL ONE (11:40)
[2017-10-28] MEDS ORDERED: Lidocaine 1% PF 5 ML VIAL ONE (11:40)
[2017-10-28] MEDS ORDERED: Promethazine HCl 25 MG/ML VIAL IM PRN (12:35)
[2017-10-28] MEDS ORDERED: Promethazine HCl 25 MG/ML VIAL SLOW IVP PRN (12:35)
--- NOTE | 2017-10-28 13:27 | OP ---
DATE OF PROCEDURE: 10/28/2017 PROCEDURE: Esophagogastroduodenoscopy and colonoscopy with control of hemorrhage. PREOPERATIVE DIAGNOSIS: Iron deficiency anemia on Plavix. OPERATIVE NOTE: Informed consent was obtained from the patient. She was sedated with total intraven ous anesthesia. The bite block was placed and the endoscope was advanced easily to the second portio n of the duodenum and retroflexion was performed in the stomach. The esophagus was normal. The GE j unction was normal. The stomach was normal including retroflexed views. The pylorus and first porti on of the duodenum were normal. The second portion of the duodenum had a few pinpoint red spots; how ever, these were not thought to be significant vascular ectasias and were left alone. There was no a ctive bleeding. The remainder of the second portion of the duodenum was normal. The patient was tur katia around. Rectal exam was performed and was normal. The preparation quality was fair to good. Th e colonoscope was advanced to the terminal ileum without difficulty. The mucosa of the terminal ileu m was normal. The ileocecal valve and appendiceal orifice were clearly identified. There were 4 sma ll AVMs in the cecum and ascending colon, which were cauterized with argon plasma coagulation. Anoth er small AVM was cauterized at the hepatic flexure. There was another small vascular ectasia in the sigmoid colon, which a small blood clot over it. This was washed away with water jet and did bleed a ctively. This AVM was also cauterized with argon plasma coagulation with good hemostasis confirmed. There was severe diverticulosis throughout the colon. Retroflex views in the rectum were unremarkab le. IMPRESSION: 1. Few tiny pinpoint red spots in the second portion of the duodenum, which were not believed to be significant vascular ectasias and were left alone. 2. Otherwise normal esophagogastroduodenoscopy. 3. Severe diverticulosis throughout the colon. 4. There were four vascular ectasias cauterized in the cecum and ascending colon. There is one smal l vascular ectasia cauterized at the hepatic flexure. There was one small vascular ectasia in the si gmoid colon, which actively bled and was cauterized with argon plasma coagulation. 5. Otherwise normal colonoscopy. RECOMMENDATIONS: 1. Follow trend of the hemoglobin. 2. Should be okay to continue Plavix. 3. Replace supplement iron. 4. If the hemoglobin fails to improve after cautery of the vascular ectasias above and with iron sup plementation, then consider outpatient capsule endoscopy of the small intestine.
[2017-10-28] MEDS: Furosemide 20 MG TAB PO SCH (13:41)
[2017-10-28] MEDS: Gabapentin 300 MG CAP PO SCH ×2 (13:41→13:44)
[2017-10-28] MEDS: Metoprolol Tartrate 25 MG TAB PO SCH (13:42)
[2017-10-28] MEDS: predniSONE 5 MG TAB PO SCH (13:42)
[2017-10-28] MEDS: predniSONE 1 MG TAB PO SCH (13:54)
[2017-10-28 16:07] VITALS: BP 142/63; TEMP 97.4
--- NOTE | 2017-10-29 02:52 | DIS ---
DATE OF ADMISSION: 10/26/2017 DATE OF DISCHARGE: 10/28/2017 DISCHARGE DIAGNOSES: 1. Syncope secondary to nitroglycerin. 2. Chronic microcytic anemia with iron deficiency component. 3. Acute kidney injury, resolved. 4. Hypertension, stable. 5. Tobacco abuse. 6. Coronary artery disease, chronic and stable. 7. Chronic kidney disease, stage 3. 8. Diverticulosis. CONSULTATIONS: 1. Dr. Reddy with Cardiology service. 2. Dr. Wallace and Dr. Nolasco with GI Service. PERTINENT LABORATORY AND X-RAY FINDINGS: Creatinine ranged between 1.16 to 1.23. Estimated GFR rang ed between 42 to 45. Troponin I negative x3. Serum iron level 100. Ferritin level 16.48. CBC show ed a hemoglobin ranging between 7.5 to 9.7, MCV 75, platelet count ranged between 428 to 471. HOSPITAL COURSE: The patient was observed on the telemetry unit after initially presenting with a br ief syncopal episode after taking nitroglycerin. The patient underwent extensive evaluation includin g metabolic screening showing evidence of acute on chronic microcytic anemia. The patient had been n oted on dual-antiplatelet therapy with aspirin and Plavix, and evaluated by the GI service. The kristina ent underwent EGD and colonoscopy with small pinpoint ectasias and AVMs in the second portion of the small intestine as well as scattered areas in the colon. No specific evidence to suggest an etiology of GI bleed. The patient was recommended for ongoing iron replacement therapy and proton-pump inhib itor. The patient did receive 1 unit of packed red blood cells during the hospital course with seria l hemoglobin showing a stable trend for the remainder of hospital course. The patient also was evalu ated by the cardiology service with recommendations to discontinue Plavix, as the patient is 2 years post cardiac catheterization with stent placement. The patient overall remained clinically stable wi th telemetry monitoring showing a sinus mechanism without evidence of acute arrhythmia or dysrhythmia . The patient is ambulatory without assistance or difficulty and tolerating regular oral intake. I have examined the patient at the time of discharge and discussed pertinent laboratory and radiographi c studies with the patient, as well as disposition and instructions. The patient verbalizes understa nding and in agreement, and ready for discharge on 10/28/2017. DISCHARGE MEDICATIONS: 1. Enteric-coated aspirin 81 mg, 1 tab p.o. daily. 2. Lipitor 10 mg p.o. at bedtime. 3. Ferrous sulfate 325 mg p.o. b.i.d. 4. Lasix 20 mg, 1 tab p.o. daily. 5. Gabapentin 600 mg p.o. b.i.d. and 300 mg p.o. at noon. 6. Isosorbide mononitrate 30 mg p.o. daily. 7. Metoprolol tartrate 25 mg p.o. b.i.d. 8. Nitroglycerin 0.4 mg sublingually every 5 minutes p.r.n. chest pain. 9. Protonix 40 mg, 1 tab p.o. daily. 10. Prednisone 7 mg p.o. daily. FOLLOWUP: The patient is to follow up with her primary care provider, Dr. Masood Murphy, within 7 da ys of discharge. The patient may follow up with the GI Service and to call their office for appointm ent time and date. CONDITION ON DISCHARGE: Stable. ACTIVITY: Ad jayson. DIET: Heart healthy. CODE STATUS: Full. DISPOSITION: Home, 10/28/2017.
--- NOTE | 2017-11-01 12:15 | EKG ---
Test Reason : ER Blood Pressure : / mmHG Vent. Rate : 069 BPM Atrial Rate : 069 BPM P-R Int : 150 ms QRS Dur : 082 ms QT Int : 426 ms P-R-T Axes : 046 041 079 degrees QTc Int : 456 ms Normal sinus rhythm Possible Left atrial enlargement Borderline ECG Confirmed by MILTON PEPPER, MARIAELENA ([id number]), film editor supervisor RIKI LEWIS ([id number]) on 11/01/2017 12:15:13 PM Referred By: Confirmed By:MARIAELENA ROSE MD
== END 2017-10-28 17:07 | disposition home or self-care (01) ==
LOC: ERS 12:47 → 2SW 16:13
PROVIDERS: ADMIT Family Medicine; ATTEND Family Medicine
PROC: 0W3P8ZZ Control Bleeding in Gastrointestinal Tract, Via Natural or Artificial Opening Endoscopic (ICD-10-PCS; principal; 2017-10-28)
PROC: 0DJ08ZZ Inspection of Upper Intestinal Tract, Via Natural or Artificial Opening Endoscopic (ICD-10-PCS; 2017-10-28)
DX: Q27.33 Arteriovenous malformation of digestive system vessel (principal); K57.30 Diverticulosis of large intestine without perforation or abscess without bleeding; R07.9 Chest pain, unspecified; R55 Syncope and collapse; T46.3X5A Adverse effect of coronary vasodilators, initial encounter; I25.10 Atherosclerotic heart disease of native coronary artery without angina pectoris; G89.29 Other chronic pain; M54.9 Dorsalgia, unspecified; G47.09 Other insomnia; I73.9 Peripheral vascular disease, unspecified; F17.210 Nicotine dependence, cigarettes, uncomplicated; I12.9 Hypertensive chronic kidney disease with stage 1 through stage 4 chronic kidney disease, or unspecified chronic kidney disease; N18.3 Chronic kidney disease, stage 3 (moderate); N17.9 Acute kidney failure, unspecified; K21.9 Gastro-esophageal reflux disease without esophagitis; D50.9 Iron deficiency anemia, unspecified; Z88.2 Allergy status to sulfonamides; Z88.5 Allergy status to narcotic agent; Z88.8 Allergy status to other drugs, medicaments and biological substances; Z79.02 Long term (current) use of antithrombotics/antiplatelets; Z79.82 Long term (current) use of aspirin; Z79.52 Long term (current) use of systemic steroids; Z79.899 Other long term (current) drug therapy; Z95.5 Presence of coronary angioplasty implant and graft; Z95.820 Peripheral vascular angioplasty status with implants and grafts
CPT/HCPCS: 36430; 43235; 45382; 71045; 80048 ×2; 80053; 82550; 82553; 82728; 83540; 84484 ×2; 85014; 85018 ×2; 85025 ×2; 85049; 86850; 86900; 86901; 86920; 93005; 94760 ×2; 99285; G0378; P9016; 36415; 81003; 81015; J2001; J2704; Q0162

== ENCOUNTER 2017-10-31 13:26 | Emergency (ER) | payer MEDICARE ==
[2017-10-31 14:03] LABS: #Eosinphils 0.2 thou/uL (0.0-0.7); #Lymphocytes 1.3 thou/uL (1.20-3.40); #Monocytes 0.6 thou/uL (0.11-0.59); #Neutrophils 12.5 thou/uL (1.40-6.50); %Basophils 0.3 % (0.0-1.0); %Eosinophils 1.1 % (0.0-10.0); %Lymphocytes 8.7 % (21.0-51.0); %Monocytes 4.2 % (0.0-10.0); %Neutrophils 85.8 % (42.0-75.0); Hemoglobin 9.4 g/dL (12.0-16.0); Mean Corpuscular HGB CONC 31.6 g/dL (32.0-36.0); Mean Corpuscular Hemoglobin 23.8 pg (27.0-31.0); Mean Corpuscular Volume 75.2 fL (78.0-98.0); Mean Platelet Volume 7.5 fL (7.4-10.4); Platelet Count 377 thou/uL (130-400); RBC Distribution Width 19.5 % (11.5-14.5); Red Blood Cell (RBC) Count 3.95 mill/uL (4.20-5.40); White Blood Cell (WBC) Count 14.6 thou/uL (4.8-10.8)
--- NOTE | 2017-10-31 14:19 | RAD ---
LEFT HIP TWO VIEWS: History: Fall, left hip injury. FINDINGS: Total hip prosthesis in place. No perihardware lucency. Osseous structures are demineralized. Calcifi cation overlies the arterial structures. IMPRESSION: 1. Left hip prosthesis. No evidence of hardware complication. 2. Osteoporosis. 3. Atherosclerosis. POS: [facility]
[2017-10-31 14:23] LABS: ALT (SGPT) 13 U/L (8-55); AST (SGOT) 20 U/L (5-34); Albumin 3.8 g/dL (3.4-4.8); Alkaline Phosphatase 69 U/L (40-150); Anion Gap 14 mmol/L (10-20); BUN (Urea Nitrogen) 24 mg/dL (9.8-20.1); Bilirubin, Total 0.2 mg/dL (0.2-1.2); Calc. Creatinine Clearance 0 mL/min (70-130); Calcium 8.7 mg/dL (7.8-10.44); Carbon Dioxide 21 mmol/L (23-31); Chloride 104 mmol/L (98-107); Estimated GFR-MDRD 49; Glucose 96 mg/dL (83-110); Protein, Total 6.8 g/dL (6.0-8.3); Sodium 135 mmol/L (136-145)
--- NOTE | 2017-10-31 14:43 | RAD ---
AP PELVIS ONE VIEW: History: Fall. Pelvic injury. FINDINGS: Bilateral hip prostheses without perihardware lucency. Sacrum partially obscured by bowel content wit hout displaced fracture evident. Total cortical discontinuity involves the left sided pubic symphysis . Osseous structures are demineralized. Calcification over the arterial and vascular structure of the pelvis. IMPRESSION: 1. Minimally displaced left pubic symphysis fracture. 2. Osteoporosis. 3. Atherosclerosis. POS: [facility]
[2017-10-31] MEDS ORDERED: Acetaminophen/Codeine 30-300mg Tablet ONE (14:47)
== END 2017-10-31 17:40 | disposition home or self-care (01) ==
LOC: ERS 13:26
DX: S32.592A Other specified fracture of left pubis, initial encounter for closed fracture (principal); I10 Essential (primary) hypertension; F41.9 Anxiety disorder, unspecified; F17.210 Nicotine dependence, cigarettes, uncomplicated; W19.XXXA Unspecified fall, initial encounter
CPT/HCPCS: 36415; 72170; 80053; 85025; 93005

== ENCOUNTER 2018-10-07 16:27 | Emergency (ER) | payer MEDICARE ==
--- NOTE | 2018-10-10 16:51 | EKG ---
Test Reason : Blood Pressure : / mmHG Vent. Rate : 079 BPM Atrial Rate : 079 BPM P-R Int : 148 ms QRS Dur : 090 ms QT Int : 396 ms P-R-T Axes : -10 -04 065 degrees QTc Int : 454 ms Normal sinus rhythm Normal ECG Confirmed by JEMAL PEPPER, DAMIEN Au ([id number]), material expeditor RIKI LEWIS ([id number]) on 10/10/2018 4:51:01 PM Referred By: Confirmed By:DAMIEN JOAQUIN MD
== END 2018-10-07 17:32 | disposition left against medical advice (07) ==
LOC: ERS 16:27
DX: R07.9 Chest pain, unspecified (principal); I10 Essential (primary) hypertension; F41.9 Anxiety disorder, unspecified; F17.210 Nicotine dependence, cigarettes, uncomplicated
CPT/HCPCS: 93005

== ENCOUNTER 2018-12-07 13:03 | Outpatient (CLI) | payer MEDICARE ==
--- NOTE | 2018-12-07 14:01 | CT ---
EXAM: CT angiogram abdomen, pelvis and both lower extremities with IV contrast and three-dimensional recons tructions PROVIDED CLINICAL HISTORY: Leg pain COMPARISON: CT abdomen and pelvis 05/27/2016 FINDINGS: The visualized lung bases are free of significant opacity. The solid abdominal organs are suboptimally evaluated in the arterial phase of contrast but demonstra te no significant abnormality. Fullness of the right adrenal gland and bilateral renal hypodensities appear similar to the prior study. There is no bowel dilatation, inflammatory fat stran ding, free fluid or lymph node enlargement apparent. There is limitations in evaluating the pelvis due to extensive beam hardening artifact from bilateral hip arthroplasties. Evidence for healed bilat eral sacral insufficiency fractures. Remote, ununited and displaced left superior and inferior pubic rami fractures are demonstrated. Remote appearing superior endplate compression deformity L2. Infrarenal abdominal aortic aneurysm is again demonstrated. This now measures about 4.8 cm in greates t AP dimension (as compared to about 4 cm on the prior. There is extensive eccentric mural thrombus. There is moderate-severe stenosis involving the proximal celiac artery. The superior mesenteric arter y demonstrates no significant stenosis, nor do the renal arteries or inferior mesenteric artery. There is extensive atherosclerotic calcium involving the iliac system bilaterally. There is severe ca lcified stenosis involving the mid right common iliac artery. There is multifocal mild to moderate stenosis involving both external iliac arteries. There is occlusion of the left internal iliac artery . On the right, the common femoral artery is not well evaluated due to extensive beam hardening artifac t. Extensive vascular calcifications present in the possibility of a severe stenosis in this region cannot be excluded. There is severe calcified stenosis involving the mid to distal common femoral art bautista. The profunda femoral artery appears patent. The superficial femoral artery demonstrates moderate short segment stenosis distally in the region of the adductor canal. The popliteal artery de monstrates moderate calcified atherosclerotic plaque without evidence for a significant stenosis. The peroneal and posterior tibial arteries appear opacified to the level of the foot. The anterior ti bial artery appears opacified to the level of the distal foreleg. On the left, the proximal left common femoral artery is poorly evaluated on the basis of beam hardeni ng artifact. Prominent atherosclerotic plaque is present and the possibility of a severe stenosis in this region cannot be excluded. Severe stenosis involves the mid to distal left common femoral art bautista on the basis of calcified and noncalcified plaque. The profunda femoral artery appears patent as visualized. The left superficial femoral artery demonstrates mild to moderate scattered atheroscle rotic vascular calcium with a focal moderate to severe stenosis involving the midportion. The popliteal artery demonstrates no significant stenosis. The runoff vessels appear opacified to the amee t. IMPRESSION: 1. Infrarenal abdominal aortic aneurysm, now measuring about 4.8 cm in greatest AP dimension, enlarge d with respect to the prior study. 2. Extensive atherosclerotic vascular disease, primarily involving right common iliac and bilateral c ommon femoral arteries.
[2018-12-07] MEDS ORDERED: Iopamidol 370 76% 100 ML VIAL ONE (16:27)
== END 2018-12-07 13:04 | disposition home or self-care (01) ==
LOC: BICCT 13:03
PROVIDERS: ATTEND Thoracic Surgery (Cardiothoracic Vascular Surgery)
DX: I73.9 Peripheral vascular disease, unspecified (principal); I71.4 Abdominal aortic aneurysm, without rupture; I70.209 Unspecified atherosclerosis of native arteries of extremities, unspecified extremity
CPT/HCPCS: 75635; 82565; Q9967

== ENCOUNTER 2018-12-11 15:04 | Outpatient (CLI) | payer MEDICARE ==
--- NOTE | 2018-12-11 15:20 | RAD ---
XR Chest Pa Lat STANDARD HISTORY: Preoperative evaluation COMPARISON: 10/22/2016 FINDINGS: The heart size is normal. The aorta is tortuous The lungs are well expanded without focal a reas of consolidation, pneumothorax or pleural effusions. There is compression of a lower thoracic vertebral body. IMPRESSION: No radiographic evidence of acute cardiopulmonary process.
[2018-12-11 15:35] LABS: Hemoglobin 12.6 g/dL (12.0-16.0); Mean Corpuscular HGB CONC 32.9 g/dL (32.0-36.0); Mean Corpuscular Hemoglobin 28.8 pg (27.0-31.0); Mean Corpuscular Volume 87.6 fL (78.0-98.0); Mean Platelet Volume 7.4 fL (7.4-10.4); Platelet Count 481 thou/uL (130-400); RBC Distribution Width 13.5 % (11.5-14.5); Red Blood Cell (RBC) Count 4.37 mill/uL (4.20-5.40); White Blood Cell (WBC) Count 7.8 thou/uL (4.8-10.8)
[2018-12-11 15:40] LABS: INR-International Normal Ratio 0.9; PTT 29.5 SEC (22.9-36.1); Prothrombin Time 12.2 SEC (12.0-14.7)
[2018-12-11 15:49] LABS: Anion Gap 14 mmol/L (10-20); BUN (Urea Nitrogen) 22 mg/dL (9.8-20.1); Calc. Creatinine Clearance 0 mL/min (70-130); Calcium 9.5 mg/dL (7.8-10.44); Carbon Dioxide 23 mmol/L (23-31); Chloride 101 mmol/L (98-107); Estimated GFR-MDRD 49; Glucose 93 mg/dL (83-110); Potassium 4.2 mmol/L (3.5-5.1); Sodium 134 mmol/L (136-145)
--- NOTE | 2018-12-15 22:42 | EKG ---
Test Reason : Blood Pressure : / mmHG Vent. Rate : 083 BPM Atrial Rate : 083 BPM P-R Int : 146 ms QRS Dur : 094 ms QT Int : 382 ms P-R-T Axes : 014 049 086 degrees QTc Int : 448 ms Normal sinus rhythm Possible Left atrial enlargement Borderline ECG Confirmed by Faith HURLEY ([id number]) on 12/15/2018 10:41:58 PM Referred By: SERENA Confirmed By:Faith HURLEY
== END 2018-12-11 15:05 | disposition home or self-care (01) ==
LOC: LABBT 15:04
PROVIDERS: ATTEND Thoracic Surgery (Cardiothoracic Vascular Surgery)
DX: Z01.818 Encounter for other preprocedural examination (principal); I73.9 Peripheral vascular disease, unspecified; I71.4 Abdominal aortic aneurysm, without rupture
CPT/HCPCS: 71046; 80048; 85027; 85610; 85730; 86850; 86900; 86901; 93005; 93010

== ENCOUNTER 2018-12-11 15:30 | Inpatient (IN) | payer MEDICARE ==
[2018-12-14] MEDS ORDERED: Fentanyl 100 MCG/2 ML VIAL ONE ×2 (06:04→11:52)
[2018-12-14] MEDS ORDERED: Nitroglycerin 50 MG/250 ML BOT 250 ML ONE (06:04)
[2018-12-14] MEDS ORDERED: Norepinephrine 4 MG/4 ML VIAL ONE (06:05)
[2018-12-14] MEDS ORDERED: Heparin 10,000 UNITS/1 ML VIAL ONE (06:29)
[2018-12-14] MEDS ORDERED: Protamine Sulfate 250 MG/25 ML VIAL ONE (06:29)
[2018-12-14] MEDS ORDERED: ceFAZolin Sodium (SDC) 2 GM/100 ML BAG ONE (06:34)
[2018-12-14] MEDS ORDERED: Protamine Sulfate 50 MG/5 ML VIAL ONE ×2 (06:42→10:52)
[2018-12-14] MEDS ORDERED: Fentanyl 250 MCG/5 ML VIAL ONE (07:26)
[2018-12-14] MEDS ORDERED: Promethazine HCl 25 MG/ML VIAL IM PRN ×2 (11:43→11:51)
[2018-12-14] MEDS ORDERED: Ondansetron HCl/PF 4 MG/2 ML Vial IVP PRN (11:43)
[2018-12-14] MEDS ORDERED: Promethazine HCl 25 MG/ML VIAL SLOW IVP PRN (11:43)
[2018-12-14] MEDS ORDERED: Nitroglycerin 0.4 MG TAB (25 Tab Bottle) SL PRN (11:51)
[2018-12-14] MEDS ORDERED: Norepinephrine 8 MG/0.9% NS 250 ML IVPB PRN (11:51)
[2018-12-14] MEDS ORDERED: hydrALAZINE 20 MG/ML VIAL SLOW IVP PRN (11:51)
[2018-12-14] MEDS ORDERED: Acetaminophen/Codeine 30-300mg Tablet PO PRN (11:51)
[2018-12-14] MEDS ORDERED: PROPOFOL 200 MG/20 ML VIAL ONE (13:10)
[2018-12-14] MEDS ORDERED: Lidocaine 1% PF 5 ML VIAL ONE (13:10)
[2018-12-14] MEDS ORDERED: Ondansetron PF 4 MG/2 ML Vial ONE (13:10)
[2018-12-14] MEDS ORDERED: Glycopyrrolate 0.2 MG/ML 5 ML SYRINGE ONE (13:10)
[2018-12-14] MEDS ORDERED: Rocuronium Bromide 10 MG/ML (10ML VIAL) ONE (13:10)
[2018-12-14] MEDS ORDERED: Heparin 10,000 UNITS/ 10 ML VIAL ONE (13:10)
[2018-12-14] MEDS ORDERED: Succinylcholine Chloride 20 MG/ML 10 ml SYRINGE FS ONE (13:10)
[2018-12-14] MEDS ORDERED: Hydrocortisone Sod Succ/PF 100 mg/2 ml Vial ONE (13:10)
[2018-12-14] MEDS: CEFAZOLIN 2 GM in Premix Bag 1 BAG IVPB SCH ×2 (13:17→19:57)
[2018-12-14] MEDS: Gabapentin 300 MG CAP PO SCH (13:18)
[2018-12-14] MEDS: Sodium Chloride 0.9% 1,000 ML IV SCH (13:18)
--- NOTE | 2018-12-14 13:54 | OP ---
DATE OF PROCEDURE: 12/14/2018 PREOPERATIVE DIAGNOSES: 1. Abdominal aortic aneurysm. 2. Bilateral femoral artery complete occlusion. POSTOPERATIVE DIAGNOSIS: 1. Abdominal aortic aneurysm. 2. Bilateral femoral artery complete occlusion. PROCEDURE PERFORMED: 1. Bilateral femoral artery cutdowns, exposing the external iliac, common femoral, profunda femoris, and superficial femoral arteries. 2. Endovascular aortic aneurysm repair utilizing a Medtronic Endurant II endograft system-main body right 25 x 13 x 166 with a right 13 x 13 x 82 extension. Left iliac extension is a 16 x 16 x 124. 3. Bilateral iliofemoral endarterectomies with patch angioplasty. TOTAL CONTRAST: 91 mL. TOTAL FLUOROSCOPY: x17 minutes 48 seconds. RPG PROGRAMMER ANALYST SURGEON: Devonte Gustafson MD ANESTHESIA: General endotracheal, Dr. Bernardino Flores. ESTIMATED BLOOD LOSS: 600. DRAINS: None. SPECIMENS: None. DESCRIPTION OF PROCEDURE: After consent was obtained, the patient was brought room to the operating room, placed in supine position on the operating room table. Appropriate central line and monitors were placed and general endotracheal anesthesia induced. Bilateral vertical incisions were made over the common femoral arteries, exposing the external iliac, common femoral, profunda femoris, and superficial femoral arteries. The patient was given 5000 units of heparin. A soft spot was selected on the anterior wall of the common femoral artery on the right. A needle and Bentson guidewire were placed followed by a 6-Portuguese sheath. Using a Bentson guidewire and angled Guevara catheter, the guidewire was guided up into the abdominal aorta. Catheter was then placed in the suprarenal aorta and the wire exchanged for a Lunderquist wire. A 10-Portuguese sheath was exchanged into the right groin. On the left, femoral artery was accessed and the Bentson guidewire placed. A 6-Portuguese sheath was placed. A Bentson guidewire and angled Guevara catheter were used to traverse the iliac system into the aorta. The catheter was placed in the suprarenal aorta and the Bentson guidewire was exchanged for a Lunderquist wire. A 12-Portuguese sheath was then placed into the mid abdominal aorta. Pigtail catheter was passed over the left Lunderquist wire into the suprarenal aorta. Aortogram was performed locating the renal arteries, aneurysm sac and measuring the iliac arteries. Appropriately sized graft was selected. The graft was then passed over the right Lunderquist wire into the suprarenal aorta. The graft was then oriented in an anterior to posterior plane. The graft was deployed seeding the fabric just below the renal arteries. The suprarenal crown was deployed. The graft was deployed down to the short gate allowing the gate to open. The gate was then accessed utilizing Lunderquist wire and the pigtail catheter from the left groin. Lunderquist wire was passed up into the graft and the pigtail passed into the main body of the graft and twirled. Lunderquist wire was then positioned up in the suprarenal aorta. Hand-injected arteriogram was performed through the left sheath, and an appropriately sized left iliac extension was selected and deployed. Hand-injected arteriogram was performed through the right sheath with the sheath below the fully deployed graft and an extension was selected and deployed. Reliant balloons were used to angioplasty to full length of the graft. Aortogram was then performed showing no type 1 Endoleak. The site did have a type 2 Endoleak from patent lumbars. There was good flow through the graft into the iliac arteries. The sheaths and guidewires were removed, clamping the iliac arteries above the inguinal ligament. Bilaterally endarterectomies were then performed, extending the endarterectomy on the right down approximately 2 cm onto the superficial femoral artery, and on the left, approximately 1 cm on the superficial femoral artery. Medial fibers were debrided and bovine pericardial patch was sewn in place with running 6-0 Prolene suture. On release of the clamps, multiple 6-0 sutures were placed for hemostasis. Both FloSeal and Avitene were used for hemostasis. Wounds were irrigated and closed in multiple layers, and Dermabond applied to the skin. There were palpable pulses in both groins at the completion of the procedure distal to our patch. The patient was awakened, extubated, and transferred to the recovery room in stable condition. Needle, sponge, and instrument counts were all reported as correct at the end of the procedure. Job ID: [id number]
[2018-12-14] MEDS: Fentanyl 100 MCG/2 ML VIAL SLOW IVP PRN (15:56)
[2018-12-14] MEDS: HYDROcodone/Acetaminophen 5/325 mg Tablet PO PRN (17:22)
[2018-12-15 00:07] LABS: Bacteria/HPF None Seen HPF (None Seen); Bilirubin Negative (Negative); Blood, Urine 2+ (Negative); Clarity Clear (Clear); Glucose, Urine (Dipstick) Normal (Negative); Leukocyte 250 Leu/uL (Negative); Nitrite Negative (Negative); Protein, Urine (Dipstick) 20 mg/dL (Neg-Trace); RBC/HPF 21-50 HPF (0-3); Squamous Epithelial None Seen HPF (0-3); Urobilinogen Normal mg/dL (Less than 2)
[2018-12-15] MEDS: Clopidogrel Bisulfate 75 MG TAB PO SCH ×2 (00:25→20:48)
[2018-12-15] MEDS: Magnesium Oxide 250 MG TAB PO SCH ×2 (00:29→20:48)
[2018-12-15] MEDS: Acetaminophen 325 MG TAB PO PRN ×2 (00:30→04:25)
[2018-12-15] MEDS: Gabapentin 300 MG CAP PO SCH ×5 (00:31→20:48)
[2018-12-15] MEDS: Fentanyl 100 MCG/2 ML VIAL SLOW IVP PRN ×2 (03:13→06:27)
[2018-12-15] MEDS: CEFAZOLIN 2 GM in Premix Bag 1 BAG IVPB SCH (04:20)
[2018-12-15] MEDS: Sodium Chloride 0.9% 1,000 ML IV SCH ×2 (04:25)
[2018-12-15 04:52] LABS: #Lymphocytes 1.2 thou/uL (1.20-3.40); #Neutrophils 9.2 thou/uL (1.40-6.50); %Basophils 0.3 % (0.0-1.0); %Eosinophils 0.1 % (0.0-10.0); %Lymphocytes 10.6 % (21.0-51.0); %Monocytes 8.5 % (0.0-10.0); %Neutrophils 80.5 % (42.0-75.0); Hemoglobin 9.1 g/dL (12.0-16.0); Mean Corpuscular Hemoglobin 29.1 pg (27.0-31.0); Mean Corpuscular Volume 88.3 fL (78.0-98.0); Mean Platelet Volume 7.4 fL (7.4-10.4); Platelet Count 274 thou/uL (130-400); RBC Distribution Width 13.7 % (11.5-14.5); Red Blood Cell (RBC) Count 3.13 mill/uL (4.20-5.40); White Blood Cell (WBC) Count 11.4 thou/uL (4.8-10.8)
[2018-12-15 05:11] LABS: Anion Gap 11 mmol/L (10-20); BUN (Urea Nitrogen) 17 mg/dL (9.8-20.1); Calc. Creatinine Clearance 38 mL/min (70-130); Calcium 7.6 mg/dL (7.8-10.44); Carbon Dioxide 20 mmol/L (23-31); Chloride 112 mmol/L (98-107); Estimated GFR-MDRD 49; Glucose 94 mg/dL (83-110); Potassium 3.2 mmol/L (3.5-5.1); Sodium 140 mmol/L (136-145)
[2018-12-15] MEDS ORDERED: Potassium Chloride 20 MEQ in Premix Bag 1 BAG IVPB SCH (07:45)
[2018-12-15] MEDS: HYDROcodone/Acetaminophen 5/325 mg Tablet PO PRN ×3 (08:44→19:35)
[2018-12-15] MEDS: predniSONE 5 MG TAB PO SCH (08:45)
[2018-12-15] MEDS: Metoprolol Tartrate 25 MG TAB PO SCH ×2 (08:45→20:49)
[2018-12-15] MEDS: Aspirin Chewable 81 MG TAB PO SCH (08:46)
[2018-12-15] MEDS: Furosemide 20 MG TAB PO SCH (08:47)
[2018-12-15] MEDS: Isosorbide Mononitrate (ER) 30 MG TAB PO SCH (08:47)
[2018-12-15] MEDS ORDERED: Prevnar 13-Val Conj/PF 0.5 ML SYRINGE IM ONE (09:00)
[2018-12-16] MEDS: HYDROcodone/Acetaminophen 5/325 mg Tablet PO PRN ×4 (00:26→19:40)
[2018-12-16 05:09] LABS: #Eosinphils 0.1 thou/uL (0.0-0.7); #Lymphocytes 1.2 thou/uL (1.20-3.40); #Monocytes 0.9 thou/uL (0.11-0.59); #Neutrophils 14.7 thou/uL (1.40-6.50); %Basophils 0.2 % (0.0-1.0); %Eosinophils 0.6 % (0.0-10.0); %Monocytes 5.4 % (0.0-10.0); %Neutrophils 86.8 % (42.0-75.0); Hemoglobin 9.7 g/dL (12.0-16.0); Mean Corpuscular HGB CONC 32.3 g/dL (32.0-36.0); Mean Corpuscular Hemoglobin 29.1 pg (27.0-31.0); Mean Platelet Volume 7.7 fL (7.4-10.4); Platelet Count 270 thou/uL (130-400); RBC Distribution Width 13.9 % (11.5-14.5); Red Blood Cell (RBC) Count 3.35 mill/uL (4.20-5.40); White Blood Cell (WBC) Count 16.9 thou/uL (4.8-10.8)
[2018-12-16 06:07] VITALS: BMI 21.9
[2018-12-16] MEDS: Nicotine 14 MG PATCH TD SCH (07:37)
[2018-12-16] MEDS: Isosorbide Mononitrate (ER) 30 MG TAB PO SCH (08:26)
[2018-12-16] MEDS: predniSONE 5 MG TAB PO SCH (08:26)
[2018-12-16] MEDS: Metoprolol Tartrate 25 MG TAB PO SCH ×2 (08:27→20:21)
[2018-12-16] MEDS: Aspirin Chewable 81 MG TAB PO SCH (08:27)
[2018-12-16] MEDS: Gabapentin 300 MG CAP PO SCH ×3 (08:27→20:20)
[2018-12-16] MEDS: Furosemide 20 MG TAB PO SCH (08:28)
--- NOTE | 2018-12-16 09:10 | CON ---
DATE OF CONSULTATION: REASON FOR CONSULTATION: ICU care. HISTORY OF PRESENT ILLNESS: The patient is an 83-year-old female from [place], who has been smoking for most of her life. In fact, she continues to smoke. She was brought into the hospital for evaluation of bilateral lower extremity claudication. She states she has a history of bronchitis for a long time, though she is unable to walk because of leg pain and back pain. She wheezes from time to time. No fever or chills. PAST MEDICAL HISTORY: Hypertension, peripheral vascular disease, arthritis, chronic tobacco abuse, and bronchitis. PAST SURGICAL HISTORY: Coronary stent, femoral artery stent, hysterectomy, bilateral hip surgery, and appendix surgery. ALLERGIES: MULTIPLE INCLUDING CITALOPRAM, ZANAFLEX, TRAMADOL. HOME MEDICATIONS: Magnesium, gabapentin 600 b.i.d., Lasix 20, nitroglycerin, Lopressor 12.5 b.i.d., ISMO 30, prednisone __ for arthritis, Protonix 40. She says she has an inhaler, unknown what it is. REVIEW OF SYSTEMS: Ten-point negative. PHYSICAL EXAMINATION: VITAL SIGNS: Apparently, her oxygen saturation dropped last night to the 87%. She denies any snoring or witnessed apnea, though she says she has insomnia. This morning, saturations are 94%, blood pressure 136/64, . CHEST: Minimal wheezing. CARDIAC: Normal S1, S2. No gallops. ABDOMEN: No masses. LABORATORY DATA: White count 80734, hemoglobin 9.7, hematocrit 30.2, platelet count 270. Renal function shows creatinine is 1.07, otherwise unremarkable. BNP was 210. Chest x-ray was clear. IMPRESSION: 1. Bronchitis, probably chronic obstructive pulmonary disease, tobacco abuse. 2. Status post bilateral femoral artery endovascular repair. 3. Abdominal aortic aneurysm repair. 4. Chronic obstructive pulmonary disease bronchitis. 5. Peripheral vascular disease. PLAN: I have added Dulera to her present regimen for chronic cough and minimal wheezing. She may benefit from outpatient sleep study and pulmonary function test. We will follow while in the ICU. Job ID: [id number]
[2018-12-16] MEDS: Mometasone/Formoterol 120 PUFF INHALER INH SCH (18:35)
[2018-12-16] MEDS: Clopidogrel Bisulfate 75 MG TAB PO SCH (20:21)
[2018-12-16] MEDS: Magnesium Oxide 250 MG TAB PO SCH (20:22)
[2018-12-16] MEDS: Acetaminophen 325 MG TAB PO PRN (21:21)
[2018-12-17] MEDS: HYDROcodone/Acetaminophen 5/325 mg Tablet PO PRN ×2 (01:27→07:02)
[2018-12-17] MEDS: Nicotine 14 MG PATCH TD SCH (07:03)
[2018-12-17] MEDS: Mometasone/Formoterol 120 PUFF INHALER INH SCH (07:15)
[2018-12-17] MEDS: Furosemide 20 MG TAB PO SCH (07:35)
[2018-12-17] MEDS: Aspirin Chewable 81 MG TAB PO SCH (07:35)
[2018-12-17] MEDS: Gabapentin 300 MG CAP PO SCH (07:36)
[2018-12-17] MEDS: Isosorbide Mononitrate (ER) 30 MG TAB PO SCH (07:36)
[2018-12-17] MEDS: Metoprolol Tartrate 25 MG TAB PO SCH (07:37)
[2018-12-17] MEDS: predniSONE 5 MG TAB PO SCH (07:40)
--- NOTE | 2018-12-17 08:26 | PRG ---
DATE OF SERVICE: 12/17/2018 SUBJECTIVE: This morning, she is better. Cough is better. She is less short of breath. OBJECTIVE: VITAL SIGNS: Saturations are 98% on room air, pulse , routine blood pressure 164/65. CHEST: No wheezing or crackles. CARDIAC: Normal S1 and S2. ASSESSMENT: 1. Bronchitis, chronic obstructive pulmonary disease, asthma, stable. 2. Status post peripheral vascular surgery. PLAN: Disposition home. She has Dulera at home, which she will use. Will see in the office as needed. Job ID: [id number]
[2018-12-17 09:33] VITALS: TEMP 98.1
[2018-12-17 09:46] VITALS: BP 120/62
--- NOTE | 2018-12-17 12:06 | DIS ---
DATE OF ADMISSION: 12/14/2018 DATE OF DISCHARGE: 12/17/2018 DIAGNOSIS: Peripheral vascular disease/abdominal aortic aneurysm. PROCEDURES: 1. Endovascular repair of abdominal aortic aneurysm. 2. Bilateral iliofemoral endarterectomies. DESCRIPTION OF HOSPITAL STAY: Ms. Mckinley was brought in for elective abdominal aneurysm repair and endarterectomies. She has done well postoperatively. She has great Doppler signals in both feet with resolution of her rest pain. At the time of discharge, she is ambulatory, tolerating a regular diet and having good bowel and bladder function. Incisions are clean and dry without evidence of infection. DISCHARGE MEDICATIONS: Unchanged at the time of admission. FOLLOWUP: Followup is with me in 2 weeks. Job ID: [id number]
== END 2018-12-17 09:45 | disposition home or self-care (01) | DRG 269 ==
LOC: SURG A 12-14 05:50 → CCU 12-14 12:23
PROVIDERS: ADMIT Thoracic Surgery (Cardiothoracic Vascular Surgery); ATTEND Thoracic Surgery (Cardiothoracic Vascular Surgery)
PROC: 04V03DZ Restriction of Abdominal Aorta with Intraluminal Device, Percutaneous Approach (ICD-10-PCS; principal; 2018-12-14)
PROC: 04CL0ZZ Extirpation of Matter from Left Femoral Artery, Open Approach (ICD-10-PCS; 2018-12-14)
PROC: 04CK0ZZ Extirpation of Matter from Right Femoral Artery, Open Approach (ICD-10-PCS; 2018-12-14)
DX: I71.4 Abdominal aortic aneurysm, without rupture (principal); I70.203 Unspecified atherosclerosis of native arteries of extremities, bilateral legs; I10 Essential (primary) hypertension; M19.91 Primary osteoarthritis, unspecified site; J44.9 Chronic obstructive pulmonary disease, unspecified; Z01.818 Encounter for other preprocedural examination; Z95.5 Presence of coronary angioplasty implant and graft; Z90.710 Acquired absence of both cervix and uterus; Z90.49 Acquired absence of other specified parts of digestive tract; Z88.8 Allergy status to other drugs, medicaments and biological substances; Z88.2 Allergy status to sulfonamides; Z96.643 Presence of artificial hip joint, bilateral; Z98.42 Cataract extraction status, left eye; Z98.41 Cataract extraction status, right eye; D64.9 Anemia, unspecified; Z79.82 Long term (current) use of aspirin; Z79.899 Other long term (current) drug therapy; Z79.52 Long term (current) use of systemic steroids; F17.210 Nicotine dependence, cigarettes, uncomplicated; I25.118 Atherosclerotic heart disease of native coronary artery with other forms of angina pectoris; E78.2 Mixed hyperlipidemia
CPT/HCPCS: 36415; 71046; 76000; 80048; 81001; 85025; 85027; 85610; 85730; 86850; 86900; 86901; 87040; 87086; 93005; 93010; C1726; C1769; C1874; C1894; J0360; J0690; J1642; J1644; J1720; J2001; J2405; J2704; J2720; J3010; J3480; J7512; J7620

== ENCOUNTER 2019-01-05 10:24 | Observation (INO) | payer MEDICARE ==
--- NOTE | 2019-01-05 11:09 | RAD ---
XR Chest 1 View Portable History: Chest pain. Near syncope Comparison: Radiograph 2018 Findings: Lungs are hyperinflated. Heart size is enlarged. The aorta is tortuous. Left distal clavicular osteolysis. Recording device projects over the left hemithorax. Impression: Obstructive pulmonary disease and cardiomegaly.
[2019-01-05] MEDS ORDERED: ISOVUE-370 76%-LOCM 1 ML ONE (11:10)
[2019-01-05 11:43] LABS: #Lymphocytes 1.1 thou/uL (1.20-3.40); #Monocytes 0.4 thou/uL (0.11-0.59); #Neutrophils 9.2 thou/uL (1.40-6.50); %Basophils 0.4 % (0.0-1.0); %Eosinophils 0.4 % (0.0-10.0); %Lymphocytes 9.9 % (21.0-51.0); %Monocytes 3.7 % (0.0-10.0); %Neutrophils 85.7 % (42.0-75.0); Hemoglobin 8.8 g/dL (12.0-16.0); Mean Corpuscular HGB CONC 33.2 g/dL (32.0-36.0); Mean Corpuscular Hemoglobin 28.6 pg (27.0-31.0); Mean Corpuscular Volume 86.1 fL (78.0-98.0); Mean Platelet Volume 6.5 fL (7.4-10.4); Platelet Count 567 thou/uL (130-400); RBC Distribution Width 14.8 % (11.5-14.5); Red Blood Cell (RBC) Count 3.09 mill/uL (4.20-5.40); White Blood Cell (WBC) Count 10.8 thou/uL (4.8-10.8)
[2019-01-05 12:09] LABS: Albumin 3.8 g/dL (3.4-4.8); Anion Gap 13 mmol/L (10-20); BUN (Urea Nitrogen) 21 mg/dL (9.8-20.1); Bilirubin, Total 0.3 mg/dL (0.2-1.2); Calc. Creatinine Clearance 0 mL/min (70-130); Calcium 8.6 mg/dL (7.8-10.44); Carbon Dioxide 19 mmol/L (23-31); Chloride 97 mmol/L (98-107); Estimated GFR-MDRD 53; Glucose 118 mg/dL (83-110); Potassium 4.4 mmol/L (3.5-5.1); Sodium 125 mmol/L (136-145)
[2019-01-05 12:10] LABS: ALT (SGPT) 9 U/L (8-55); AST (SGOT) 16 U/L (5-34); Alkaline Phosphatase 64 U/L (40-150); Globulin 3.2 g/dL (2.4-3.5)
--- NOTE | 2019-01-05 13:22 | CT ---
CTA ABDOMEN AND PELVIS AND LOWER EXTREMITIES WITH CONTRAST: 01/05/19 Axial tomograms obtained with multiplanar reconstruction and 3D postprocessing following angio protoc ol. INDICATION: Recent aortic aneurysm repair with aortic stent graft placement. Lower extremity pain. Comparison made to CTA, 12/07/18. That exam revealed a large abdominal aortic aneurysm involving the d istal abdominal aorta measuring up to 4.8 cm diameter. FINDINGS: Aortic stent graft is now noted. The stent graft is patent. The black[place] aneurysm measures up to 5 cm. There is an enhancing vessel arising from the distal abdominal aorta posteriorly. This vessel is seen filling portions of the blackfeet aneurysm. 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 The iliac limbs of the stent graft are patent. Renal arteries are patent. There is stenosis at the origin of the celiac artery and there is mild stenosis at the origin of the superior mesenteric artery. The stenosis of the proximal celiac artery appears high grade. This was a lso noted on the prior exam of 12/07/18. Right lower extremity: The internal and external iliac arteries are patent with atherosclerotic change. Right common femoral is patent. Mild disease in the right superficial femoral artery with evidence of moderate stenosis distally at H unter's canal, probably approaching 50% diameter stenosis. Popliteal is patent with moderate atherosclerotic disease. Popliteal trifurcates below the knee space and there is occlusion of the anterior tibial artery dista lly. The peroneal artery and posterior tibial artery are patent to the ankle. Left lower extremity: The left internal appears occluded but appears to reconstitute distally. The external iliac is patent with moderate atherosclerotic disease. There is high grade stenosis in the distal left external iliac near the origin of the left common fem oral which appears hemodynamically significant of greater than 50% diameter. This is unchanged from t he recent exam of 12/07/18. The mid and distal common femoral is patent. The profunda is patent. Moderate disease throughout the left superficial femoral artery with evidence of significant stenosis distally at Arben's canal. Popliteal is patent. Popliteal trifurcates below the joint space. There is three vessel runoff to the ankle. Soft tissues: The liver, spleen, pancreas, adrenal glands and kidneys are unremarkable. Bilateral renal cystic lesi ons again noted. Bowel loops unremarkable with diverticulosis of the left colon and sigmoid. IMPRESSION: 1. Aortic stent graft is patent. There is a type IIa endoleak with an enhancing vessel filling t he blackfeet aneurysm arising from the posterior distal aorta. 2. 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 3. High grade stenosis in the distal left external iliac unchanged from recent exam. 4. Diffuse disease throughout both superficial femoral arteries with evidence of significant gregory nosis at Arben's canal bilaterally. 5. Runoff below the knees as noted above. POS: OFF
[2019-01-05] MEDS ORDERED: Acetaminophen/Codeine 30-300mg Tablet ONE (15:25)
[2019-01-05 15:38] LABS: Troponin I Less than 0.010 ng/mL (< 0.028)
--- NOTE | 2019-01-05 16:29 | HP ---
PRIMARY CARE PHYSICIAN: Dr. Masood Murphy. PRIMARY DYE MIXER: Dr. Reddy. PRIMARY CARDIOVASCULAR SURGEON: Dr. Tomas Hernandez. REASON FOR ADMISSION: Near syncope, chest pain. HISTORY OF PRESENT ILLNESS: An 83-year-old female, who has underlying history of coronary artery disease as well as peripheral vascular disease, who came to emergency room today for evaluation of chest pain. The patient reports that for last 2 to 3 days, she was recurrently experiencing anginal pain, which was substernal in location without any radiation, lasting for few minutes and improved with nitroglycerin. The patient also felt dizziness this morning and she was about to pass out. The patient was feeling very bad with uneasiness sensation. She was also experiencing both lower extremity pain. Per the patient during nighttime, her symptoms get worse and she has to move her lower extremity to feel better. The patient reports that on December 14, 2018, the patient had surgery for abdominal aortic aneurysm repair as well as bilateral iliofemoral endarterectomy was performed and subsequently the patient was discharged home on December 17, 2018. The patient reports that surgical site is healing very well, but she is experiencing lower extremity discomfort and pain. She denies any edema. She denies any calf tenderness. She denies any shortness of breath, orthopnea, or PND. She denies any fever or chills. She denies any UTI symptoms. She denies any constipation, diarrhea, melena, or hematochezia. In the emergency room, the patient had CT aortogram runoff which showed aortic stent graft is patent. There was high-grade stenosis at the origin of celiac artery and high-grade stenosis in the distal left external iliac artery. The patient had routine blood test, which showed hyponatremia. Otherwise, the patient remained hemodynamically stable. When the patient had CT angiography, aorto-bilateral runoff, the patient was found with type 2 endoleak. The patient does not have any abdominal pain. REVIEW OF SYSTEMS: CONSTITUTIONAL: Negative for weight loss or gain, ability to conduct usual activities. SKIN: Negative for rash, itching. EYES: Negative for double vision, pain. ENT/MOUTH: Negative for nose bleeding, neck stiffness, pain, tenderness. CARDIOVASCULAR: Negative for palpitations, dyspnea on exertion, orthopnea. RESPIRATORY: Negative for shortness of breath, wheezing, cough, hemoptysis, fever or night sweats. GASTROINTESTINAL: Negative for poor appetite, abdominal pain, heartburn, nausea, vomiting, constipation, or diarrhea. GENITOURINARY: Negative for urgency, frequency, dysuria, nocturia. MUSCULOSKELETAL: Negative for pain, swelling. NEUROLOGIC/PSYCHIATRIC: Negative for anxiety, depression. ALLERGY/IMMUNOLOGIC: Negative for skin rash, bleeding tendency. Please see my HPI for pertinent positives and negatives. All other review of systems reviewed and negative except as mentioned in HPI. PAST MEDICAL HISTORY: Coronary artery disease with history of stent in the right coronary artery, chronic diastolic heart failure, moderate mitral regurgitation, peripheral vascular disease, hypertension, history of tobacco abuse disorder, chronic low back pain, chronic normocytic anemia, aortic aneurysm. PAST SURGICAL HISTORY: Cardiac catheterization with stent placement, angiography with stent placement in the right leg, endovascular aortic aneurysm repair, bilateral iliofemoral endarterectomies with patch angioplasty, appendicectomy, hysterectomy, bilateral hip replacement, venous ablation to bilateral lower extremity. PAST PSYCHIATRIC HISTORY: Anxiety and depression. SOCIAL HISTORY: The patient smokes about 1 pack per day since age of 16. She denies any alcohol abuse. She denies any other illicit drug abuse. She lives at home with family. FAMILY HISTORY: No strong family history of cancer. Mother in her old age by age of 89. Father from [place] by age of 65 years. ALLERGIES: FOSAMAX, CELEXA, SULFA DRUGS, ULTRAM, AND VITAMIN D3. MEDICATIONS: Current home medications; 1. Nitroglycerin 0.4 mg sublingual p.r.n. for chest pain. 2. Tylenol No. 3 one or two tablets q.6 hours p.r.n. 3. Plavix 75 mg p.o. at bedtime. 4. Gabapentin 600 mg p.o. b.i.d. and 300 mg p.o. in afternoon time. 5. Imdur 30 mg p.o. daily. 6. Magnesium 250 mg p.o. at bedtime. 7. Metoprolol 12.5 mg twice daily. 8. Prednisone 7.5 mg p.o. daily. 9. Aspirin 81 mg p.o. daily. 10. Lasix 20 mg p.o. daily. 11. Protonix 40 mg p.o. daily. EMERGENCY ROOM COURSE: Reviewed. The patient was given Tylenol No. 3 and IV fluid. PHYSICAL EXAMINATION: VITAL SIGNS: On arrival, blood pressure 152/76, pulse 71, respiratory rate 18, temperature 99.6, saturation 96% on room air. Weight 58.9 kg. GENERAL: The patient is currently alert, oriented, in no acute distress. HEENT: Head; normocephalic and atraumatic. Eyes; pupils round, reactive to light. Extraocular muscle intact. ENT; oropharynx within normal limits. Moist mucous membranes. No oral lesion. No pharyngeal erythema. No exudate. NECK: Supple. No JVD. No thyromegaly. No carotid bruit. No jugular venous distention. LUNGS: Clear to auscultation without any rhonchi or rales. CARDIAC: S1 and S2 regular. No murmur. No gallop. No rub. Soft systolic murmur noted. ABDOMEN: Soft bowel sounds present. Nontender. Nondistended. No organomegaly. No mass. No suprapubic tenderness. BACK: Unremarkable. No CVA tenderness. Extremities: Upper extremities, passive movement of all joints are normal. Lower extremity, no edema. Good distal pulsation. SKIN: Surgical site is clean and healthy in bilateral inguinal region. PSYCHIATRIC: Normal affect. NEUROLOGIC: Nonfocal examination. SIGNIFICANT LABORATORY DATA: CT angiography runoff showing aortic stent graft is patent, type 2 endoleak with enhancing vessel filling in the tetlin aneurysm, high-grade stenosis at the origin of celiac artery, high-grade stenosis in left external iliac artery, diffuse disease in superficial femoral arteries. Chest x-ray, COPD changes and cardiomegaly. CBC; WBC 10.8, hemoglobin 8.8, platelet 567. BMP; sodium 125, potassium 4.4, chloride 97, carbon dioxide 19, BUN 21, creatinine 1.01, glucose 118, calcium 8.6. LFT; AST 16, ALT 9, alkaline phosphatase 64, albumin 3.8. Troponin I negative x2. ASSESSMENT/PLAN: 1. Chest pain, recurrent. Currently EKG is not showing any ischemic changes. Her troponin is negative x2. She has underlying history of coronary artery disease as well as peripheral vascular disease. She is already on aspirin and Plavix as well as beta-yesenia therapy at home. The patient is currently chest pain free. We will continue with nitroglycerin patch q.8 hourly and check lipid profile for risk stratification. The patient had cardiac catheterization in 2018. At that time, she had normal systolic function and patent RCA stent. At this point, we will continue with medical therapy. If troponin increases or the patient have recurrent chest pain, then we will consider Cardiology evaluation. Otherwise, we will try to optimize her medical therapy. Healthy lifestyle measure discussed with the patient. 2. History of aortic aneurysm repair recently by Dr. Tomas Hernandez. CT angiography, aorto runoff showed endoleak which probably normal. We will consult Dr. Tomas Hernandez for followup examination while in hospital as the patient is also scheduled for followup. Surgical site appears to be clean and healthy. 3. Hyponatremia and hypochloremia. We will continue with gentle IV fluid NS at 75 mL/hour and we will repeat BMP tomorrow. 4. Anemia, normocytic normochromic. The patient's hemoglobin has dropped from November 2018. We will check stool for guaiac. We will continue with ferrous sulfate 325 mg p.o. daily. 5. Tobacco abuse disorder. Smoking cessation counseling given. Healthy lifestyle measure discussed with the patient. 6. Chronic obstructive pulmonary disease. We will provide DuoNeb therapy q.6 hourly p.r.n. 7. Tobacco abuse disorder. Smoking cessation counseling given. We will offer nicotine patch if needed. 8. Dyslipidemia. We will continue Lipitor 40 mg p.o. at bedtime. 9. Gastroesophageal reflux disease. We will continue Pepcid 20 mg p.o. b.i.d. 10. Code status. The patient is full code. The patient does not have any surrogate decision maker. DISPOSITION PLAN: Based on clinical course and recommendation, we are expecting the patient's stay is 24 hours. Plan of care discussed with the patient in detail. Job ID: [id number]
[2019-01-05] MEDS ORDERED: Acetaminophen 325 MG TAB PO PRN (18:21)
[2019-01-05] MEDS ORDERED: Loperamide HCl 2 MG CAP PO PRN (18:21)
[2019-01-05] MEDS ORDERED: hydrALAZINE 20 MG/ML VIAL SLOW IVP PRN (18:21)
[2019-01-05] MEDS ORDERED: Zolpidem Tartrate 5 MG TAB PO PRN (18:21)
[2019-01-05] MEDS ORDERED: Nicotine 21 MG PATCH TD PRN (18:21)
[2019-01-05] MEDS ORDERED: Diabetic Tussin 200 MG/10 ML UDCUP PO PRN (18:21)
[2019-01-05] MEDS ORDERED: Sodium Chloride 0.65% Nasal 44 ML BOT EA NARE PRN (18:21)
[2019-01-05] MEDS ORDERED: Artificial Tears 18 DROP/0.9 ML EA EYE PRN (18:21)
[2019-01-05] MEDS ORDERED: Calcium Carbonate 500 MG ChewTAB PO PRN (18:21)
[2019-01-05] MEDS ORDERED: Ondansetron ODT 4 MG TAB PO PRN (18:21)
[2019-01-05] MEDS ORDERED: Loratadine 10 MG TAB PO PRN (18:21)
[2019-01-05] MEDS ORDERED: Guaifenesin DM 100-10/5 ML UDCUP PO PRN (18:21)
[2019-01-05] MEDS ORDERED: Nitroglycerin 0.4 MG TAB (25 Tab Bottle) SL PRN (18:21)
[2019-01-05] MEDS ORDERED: Ondansetron PF 4 MG/2 ML Vial IVP PRN (18:21)
[2019-01-05] MEDS ORDERED: Bisacodyl 10 MG SUPP PR PRN (18:21)
[2019-01-05] MEDS ORDERED: Senokot S 8.6-50 MG TAB PO PRN (18:21)
[2019-01-05 18:31] LABS: Troponin I Less than 0.010 ng/mL (< 0.028)
[2019-01-05 20:48] VITALS: BMI 20.9
[2019-01-05] MEDS ORDERED: Famotidine 20 MG TAB PO SCH (21:00)
[2019-01-05] MEDS ORDERED: Magnesium Oxide 250 MG TAB PO SCH (21:00)
[2019-01-05] MEDS ORDERED: Metoprolol Tartrate 25 MG TAB PO SCH (21:00)
[2019-01-05 21:34] LABS: Troponin I Less than 0.010 ng/mL (< 0.028)
[2019-01-05] MEDS ORDERED: Acetaminophen/Codeine 30-300mg Tablet PO PRN (22:38)
[2019-01-05] MEDS ORDERED: cloNIDine 0.1 MG TAB PO PRN (22:42)
[2019-01-05] MEDS: Sodium Chloride 0.9% 1,000 ML IV SCH (22:44)
[2019-01-05] MEDS: Nitroglycerin 2% Ointment 1 INCH/1 GM Packet TOP SCH (22:45)
[2019-01-05] MEDS: Gabapentin 300 MG CAP PO SCH (22:50)
--- NOTE | 2019-01-05 23:30 | CON ---
DATE OF CONSULTATION: I was asked to evaluate the CT angiogram on Ms. Mckinley. She is status post endovascular aortic aneurysm repair. She has a small type 2 endoleak from lumbar vessels with a small blush in the aneurysm sac. Sac measures 5.1 cm in maximal diameter, which is down from her previous CT scan. She also has common femoral artery stenosis, which can be addressed at a later date as she is not symptomatic currently. She is in the hospital for dizziness and near syncope. This should be worked up as appropriate. Job ID: [id number]
[2019-01-06] MEDS: Nitroglycerin 2% Ointment 1 INCH/1 GM Packet TOP SCH (06:07)
[2019-01-06 06:20] LABS: #Basophils 0.1 thou/uL (0.0-0.2); #Eosinphils 0.2 thou/uL (0.0-0.7); #Lymphocytes 1.3 thou/uL (1.20-3.40); #Monocytes 0.7 thou/uL (0.11-0.59); #Neutrophils 3.8 thou/uL (1.40-6.50); %Basophils 1.3 % (0.0-1.0); %Eosinophils 2.8 % (0.0-10.0); %Lymphocytes 21.1 % (21.0-51.0); %Monocytes 11.6 % (0.0-10.0); %Neutrophils 63.3 % (42.0-75.0); Hemoglobin 8.1 g/dL (12.0-16.0); Mean Corpuscular HGB CONC 32.1 g/dL (32.0-36.0); Mean Corpuscular Hemoglobin 27.4 pg (27.0-31.0); Mean Corpuscular Volume 85.5 fL (78.0-98.0); Mean Platelet Volume 6.7 fL (7.4-10.4); Platelet Count 448 thou/uL (130-400); RBC Distribution Width 14.6 % (11.5-14.5); Red Blood Cell (RBC) Count 2.97 mill/uL (4.20-5.40); White Blood Cell (WBC) Count 6.1 thou/uL (4.8-10.8)
[2019-01-06 06:40] LABS: Anion Gap 12 mmol/L (10-20); BUN (Urea Nitrogen) 18 mg/dL (9.8-20.1); Calc. Creatinine Clearance 42 mL/min (70-130); Calcium 8.5 mg/dL (7.8-10.44); Carbon Dioxide 20 mmol/L (23-31); Chloride 109 mmol/L (98-107); Estimated GFR-MDRD 58; Glucose 90 mg/dL (83-110); Potassium 3.7 mmol/L (3.5-5.1); Sodium 137 mmol/L (136-145)
[2019-01-06] MEDS ORDERED: Ferrous Sulfate 325 MG TAB PO SCH (08:00)
[2019-01-06 08:14] VITALS: TEMP 98.1
[2019-01-06] MEDS: Sodium Chloride 0.9% 1,000 ML IV SCH (08:17)
[2019-01-06] MEDS: Gabapentin 300 MG CAP PO SCH (08:18)
[2019-01-06] MEDS ORDERED: Clopidogrel Bisulfate 75 MG TAB PO SCH (09:00)
[2019-01-06] MEDS ORDERED: Isosorbide Mononitrate (ER) 30 MG TAB PO SCH (09:00)
[2019-01-06] MEDS ORDERED: predniSONE 5 MG TAB PO SCH (09:00)
[2019-01-06] MEDS ORDERED: Aspirin 81 mg Enteric Coated Tablet PO SCH (09:00)
[2019-01-06] MEDS ORDERED: Gabapentin 300 MG CAP PO SCH (12:00)
[2019-01-06 12:30] VITALS: BP 106/55
--- NOTE | 2019-01-06 14:46 | DIS ---
DATE OF ADMISSION: 01/05/2019 DATE OF DISCHARGE: 01/06/2019 DISCHARGE DISPOSITION: To home. PRIMARY DISCHARGE DIAGNOSES: Near-syncope with dizziness, resolved. SECONDARY DISCHARGE DIAGNOSES: Recent endovascular aortic aneurysm repair, peripheral vascular disease, coronary artery disease with prior stent to right coronary artery, and chronic anemia. PROCEDURES DONE DURING HOSPITALIZATION: The patient has had CT angiogram aorta with runoff showed aortic stent graft to be patent as a type 2 endoleak with an enhancing vessel filling the [place] aneurysm arising from the posterior distal aorta, high-grade stenosis at the origin of celiac artery and distal left external iliac artery, which is unchanged from recent exam. Diffuse disease throughout both superficial femoral artery with evidence of significant stenosis at Arben canal bilaterally. Chest x-ray done showed cardiomegaly, otherwise no acute infiltrate. H and H 8 and 25, platelet count 448, and MCV is 85. Discharge sodium 137 and initial sodium 125, BUN 18, and creatinine 0.9. Troponin times x4 negative. DISCHARGE MEDICATIONS: 1. Plavix 75 mg p.o. daily. 2. Gabapentin 600 mg twice daily and 300 mg at noon. 3. Imdur extended release 30 mg daily. 4. Toprol-XL 25 mg daily. 5. Prednisone 7.5 mg per primary care physician for chronic back pain. 6. Aspirin 81 mg p.o. daily. 7. Ferrous sulfate 325 mg p.o. daily. 8. Protonix 40 mg p.o. daily. ALLERGIES: ALLERGIC TO ALENDRONATE, CITALOPRAM, SULFA, AND ULTRAM. INPATIENT CONSULT: Dr. Hernandez for Cardiothoracic Surgery. DISCHARGE PLAN: The patient will follow up with her primary care physician, Dr. Murphy in 1 week. BRIEF COURSE DURING HOSPITALIZATION: The patient initially came in with complaints of chest pain and dizziness. The patient was placed under observation on telemetry. Four sets of troponin were done, which were negative. She has had cardiac catheterization with prior stent to RCA. Last catheterization was in June of [address] Reddy. She has had recent endovascular aortic aneurysm repair in November. The patient remained hemodynamically stable with no further chest pain or dizziness. Her vitals have remained stable. Her medications were optimized. Prior to discharge, she is ambulating and eating well. Her surgical wounds from recent surgery are healing well. She needs to have outpatient followups as before with Dr. Hernandez and needs to see her primary care physician Dr. Murphy in 1 week. Please note, I have seen and examined the patient on the day of discharge. Job ID: [id number] MTDD
--- NOTE | 2019-01-09 15:07 | EKG ---
Test Reason : CP Blood Pressure : / mmHG Vent. Rate : 069 BPM Atrial Rate : 069 BPM P-R Int : 152 ms QRS Dur : 088 ms QT Int : 416 ms P-R-T Axes : 002 030 080 degrees QTc Int : 445 ms Normal sinus rhythm Normal ECG Confirmed by BENITO VICTOR DO ([id number]), mapping editor RIKI LEWIS ([id number]) on 01/09/2019 3:07:17 PM Referred By: VALENTE Confirmed By:BENITO VICTOR DO
--- NOTE | 2019-01-09 15:08 | EKG ---
Test Reason : Blood Pressure : / mmHG Vent. Rate : 070 BPM Atrial Rate : 070 BPM P-R Int : 160 ms QRS Dur : 086 ms QT Int : 418 ms P-R-T Axes : 055 034 081 degrees QTc Int : 451 ms Normal sinus rhythm Possible Left atrial enlargement Borderline ECG Confirmed by BENITO VICTOR DO ([id number]), newspaper copy editor RIKI LEWIS ([id number] on 01/09/2019 3:08:09 PM Referred By: Confirmed By:BENITO VICTOR DO
== END 2019-01-06 13:31 | disposition home or self-care (01) ==
LOC: ERS 10:24 → ERHOLD 15:22 → 2SW 20:30
PROVIDERS: ADMIT Internal Medicine; ATTEND Internal Medicine
DX: R07.9 Chest pain, unspecified (principal); R55 Syncope and collapse; R42 Dizziness and giddiness; I73.9 Peripheral vascular disease, unspecified; I25.10 Atherosclerotic heart disease of native coronary artery without angina pectoris; E78.5 Hyperlipidemia, unspecified; D64.9 Anemia, unspecified; E87.1 Hypo-osmolality and hyponatremia; E87.8 Other disorders of electrolyte and fluid balance, not elsewhere classified; F41.8 Other specified anxiety disorders; F32.9 Major depressive disorder, single episode, unspecified; F17.210 Nicotine dependence, cigarettes, uncomplicated; Z79.82 Long term (current) use of aspirin; Z79.899 Other long term (current) drug therapy; Z88.2 Allergy status to sulfonamides; Z88.8 Allergy status to other drugs, medicaments and biological substances; Z86.79 Personal history of other diseases of the circulatory system; Z95.5 Presence of coronary angioplasty implant and graft
CPT/HCPCS: 36415; 71045; 75635; 80048; 80053; 84484; 85025; 93005; 94760; 96360; 96361; 96374; G0378; J0360; J7512; Q9966

== ENCOUNTER 2019-02-27 13:57 | Observation (INO) | payer MEDICARE ==
[2019-02-27] MEDS ORDERED: Fentanyl 100 MCG/2 ML VIAL ONE (14:41)
[2019-02-27] MEDS ORDERED: Senokot S 8.6-50 MG TAB PO PRN (16:05)
[2019-02-27] MEDS ORDERED: Acetaminophen/Codeine 30-300mg Tablet PO PRN (16:05)
[2019-02-27] MEDS ORDERED: Bisacodyl 10 MG SUPP PR PRN (16:05)
[2019-02-27] MEDS ORDERED: Acetaminophen 325 MG TAB PO PRN (16:05)
[2019-02-27] MEDS ORDERED: Guaifenesin DM 100-10/5 ML UDCUP PO PRN (16:05)
[2019-02-27] MEDS ORDERED: Morphine 2 MG/ML SYRINGE SLOW IVP PRN (16:05)
[2019-02-27 16:38] VITALS: BMI 19.7
--- NOTE | 2019-02-27 16:38 | HP ---
REASON FOR ADMISSION: Syncope, pelvic fracture, history of fall. HISTORY OF PRESENTING ILLNESS: The patient says sometime last night the patient fell to the floor. She does not know what really happened. She could not get up after the fall. She couldn't reach the phone to call for help. The patient managed to lay on the floor for unknown period of time. She lives alone. Her son lives next door. This morning, she managed to scoot on her elbow and reached her phone and called EMS. She was taken to [facility], where multiple imaging studies were done and she was found to have had left pubic body comminuted fracture and was transferred here for higher level of care. No complaints of chest pain, palpitation, PND, or orthopnea. No complaints of fever. She has not been able to get up and ambulate after the fall. She normally ambulates by herself. She is currently sitting in a wheelchair. PAST MEDICAL AND SURGICAL HISTORY: 1. Coronary artery disease with stent to RCA. 2. Prior history of diastolic dysfunction. 3. Moderate mitral regurgitation. 4. Peripheral vascular disease with history of endovascular aortic aneurysm repair. 5. Bilateral iliofemoral endarterectomies with patch angioplasty. 6. Appendectomy. 7. Hysterectomy. 8. Bilateral hip replacement. 9. Tobacco abuse. 10. Hypertension. 11. Chronic back pain. 12. Chronic anemia. PERSONAL HISTORY: Smokes 1-2 packs a day. Does not abuse alcohol or drugs. She lives alone. Her son stays close by. CURRENT MEDICATIONS: 1. Aspirin 81 mg p.o. daily. 2. Plavix 75 mg p.o. daily. 3. Prednisone 5 mg p.o. daily. 4. Gabapentin 300 mg p.o. 3 times daily. 5. Protonix 40 mg p.o. daily. 6. Metoprolol 12.5 mg p.o. daily. 7. Imdur extended release 30 mg daily. 8. Ferrous sulfate 325 mg daily. ALLERGIES: ALLERGIC TO ALENDRONATE, CITALOPRAM, ULTRAM, AND SULFA. FAMILY HISTORY: Mother at the age of 89 years, she has had history of stroke. Father at age of 65 years, he has had history of [place]. REVIEW OF SYSTEMS: CONSTITUTIONAL: Negative for weight loss or gain, ability to conduct usual activities. SKIN: Negative for rash, itching. EYES: Negative for double vision, pain. ENT/MOUTH: Negative for nose bleeding, neck stiffness, pain, tenderness. CARDIOVASCULAR: Negative for palpitations, dyspnea on exertion, orthopnea. RESPIRATORY: Negative for shortness of breath, wheezing, cough, hemoptysis, fever or night sweats. GASTROINTESTINAL: Negative for poor appetite, abdominal pain, heartburn, nausea , vomiting, constipation, or diarrhea. GENITOURINARY: Negative for urgency, frequency, dysuria, nocturia. MUSCULOSKELETAL: Negative for pain, swelling. NEUROLOGIC/PSYCHIATRIC: Negative for anxiety, depression. ALLERGY/IMMUNOLOGIC: Negative for skin rash, bleeding tendency. CODE STATUS: The patient wants to be do not attempt to resuscitate. Power of real estate attorney is her son, Mr. Carter. PHYSICAL EXAMINATION: GENERAL: The patient is an 83-year-old female, who is currently in mild distress from left hip pain. VITAL SIGNS: Blood pressure 200/86 on arrival, pulse 70 per minute, respiratory rate 18 per minute, temperature 98.8 degrees Fahrenheit, saturating 95% on room air. NECK: Supple. No elevated JVD. HEENT: Eyes; extraocular muscles intact. Pupils reacting to light. Oral cavity; mucous membranes are moist. No exudates or congestion. CARDIOVASCULAR SYSTEM: S1 and S2 heard. Regular rhythm. RESPIRATORY SYSTEM: Air entry 1+ bilateral. No rales. There is rhonchi plus bilateral. ABDOMEN: Soft. Bowel sounds heard. No tenderness, rigidity, or guarding. EXTREMITIES: No peripheral edema or calf tenderness. The patient has severe excruciating pain in the left medial aspect of the thighs and the groin area. Active range of motion is painful at the hip and knees as well. Peripheral pulses are 2+ bilateral. No ischemic ulcers or gangrene. CENTRAL NERVOUS SYSTEM: No gross focal deficits noted. The patient is alert, awake, and oriented well. PSYCHIATRIC SYSTEM: The patient's mood is euthymic. No hallucinations or delusions. LABORATORY DATA: White count of 12, hemoglobin and hematocrit 9 and 32, platelet count 400, and MCV is 84 with 85% neutrophils. PT/INR/PTT within normal limits. Serum bicarb 18, BUN 22, creatinine 1.1, and serum glucose 109. Liver enzymes within normal limits. Albumin is 3.8. BNP is 802. TSH 2.3. 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 Left femur 2-view x-ray done shows a comminuted fracture, centered at the left pubic body. CT cervical spine without contrast done showed no fracture or malalignment. CT brain without contrast done, showed no acute intracranial abnormalities. X-ray of left hip shows left pubic body comminuted fracture. EKG shows normal sinus rhythm at 81 beats per minute, the signs of questionable LVH. CLINICAL IMPRESSION AND PLAN: The patient will be under observation on telemetry for syncopal episode with the patient falling and having a fracture of the left pubic body. She was unable to get up and is currently not able to get up as well. We will obtain physical therapy/occupational therapy evaluations. She will be on lidocaine patch x2, morphine p.r.n., [place], Tylenol No. 3 p.r.n. We will also continue her home dose of aspirin, Plavix, ferrous sulfate, gabapentin, Imdur, Toprol-XL, prednisone, and Protonix as before. Echo with 2D Doppler for left ventricular function in view of the apical ballooning seen on the CT dissection protocol, which was not seen on prior echo here. She has had a prior cardiac cath done in 06/2017, which showed patent RCA stent, had 40% disease in proximal left anterior descending and mid circumflex. If the echo confirms the apical aneurysm, she will have cardiology consultation. Physical therapy/occupational therapy evaluations will be requested. Rehab eval. Orthopedic consultation with Dr. Chou will be requested for help with her left pubic body fracture. Job ID: [id number] [facility]
[2019-02-27] MEDS: Nicotine 21 MG PATCH TD SCH (17:43)
[2019-02-27] MEDS: HYDROcodone/Acetaminophen 5/325 mg Tablet PO PRN (17:55)
[2019-02-27] MEDS: Clopidogrel Bisulfate 75 MG TAB PO SCH (20:36)
[2019-02-27] MEDS: Gabapentin 300 MG CAP PO SCH (20:37)
[2019-02-28] MEDS: HYDROcodone/Acetaminophen 5/325 mg Tablet PO PRN ×3 (00:49→10:23)
[2019-02-28 06:53] LABS: #Basophils 0.1 thou/uL (0.0-0.2); #Eosinphils 0.1 thou/uL (0.0-0.7); #Lymphocytes 1.2 thou/uL (1.20-3.40); #Monocytes 0.7 thou/uL (0.11-0.59); #Neutrophils 7.8 thou/uL (1.40-6.50); %Basophils 0.6 % (0.0-1.0); %Eosinophils 0.8 % (0.0-10.0); %Lymphocytes 12.2 % (21.0-51.0); %Monocytes 6.6 % (0.0-10.0); %Neutrophils 79.8 % (42.0-75.0); Hemoglobin 9.4 g/dL (12.0-16.0); Mean Corpuscular HGB CONC 31.9 g/dL (32.0-36.0); Mean Corpuscular Hemoglobin 26.3 pg (27.0-31.0); Mean Corpuscular Volume 82.3 fL (78.0-98.0); Mean Platelet Volume 7.5 fL (7.4-10.4); Platelet Count 372 thou/uL (130-400); RBC Distribution Width 15.3 % (11.5-14.5); Red Blood Cell (RBC) Count 3.57 mill/uL (4.20-5.40); White Blood Cell (WBC) Count 9.8 thou/uL (4.8-10.8)
[2019-02-28 07:15] LABS: Anion Gap 14 mmol/L (10-20); BUN (Urea Nitrogen) 20 mg/dL (9.8-20.1); Calc. Creatinine Clearance 37 mL/min (70-130); Calcium 8.6 mg/dL (7.8-10.44); Carbon Dioxide 21 mmol/L (23-31); Chloride 109 mmol/L (98-107); Estimated GFR-MDRD 48; Glucose 98 mg/dL (83-110); Potassium 3.7 mmol/L (3.5-5.1); Sodium 140 mmol/L (136-145)
[2019-02-28] MEDS: Ferrous Sulfate 325 MG TAB PO SCH (08:25)
[2019-02-28] MEDS: Enoxaparin Sodium 40 MG/0.4 ML SYRINGE SC SCH (08:26)
[2019-02-28] MEDS: Aspirin Chewable 81 MG TAB PO SCH (08:26)
[2019-02-28] MEDS: Isosorbide Mononitrate (ER) 30 MG TAB PO SCH (08:27)
[2019-02-28] MEDS: predniSONE 5 MG TAB PO SCH (08:27)
[2019-02-28] MEDS: Gabapentin 300 MG CAP PO SCH ×3 (08:27→20:21)
[2019-02-28] MEDS: Lidocaine 5% Patch TD SCH (08:28)
[2019-02-28] MEDS ORDERED: Famotidine 20 MG TAB PO SCH (09:00)
--- NOTE | 2019-02-28 10:58 | PRG ---
DATE OF SERVICE: 02/28/2019 SUBJECTIVE: The patient is seen at bedside, alert, awake, in no distress, complains of pain in the pelvic area on movement, also complains of mild headache, otherwise denies any chest pain, shortness of breath, nausea, vomiting, or diarrhea. As per the patient, she was trying to come out of the bed and then fell to the ground, but does not exactly remember what happened. As per the patient, she has been having recurrent falls in the past. As per the patient, most likely the fall was mechanical. OBJECTIVE: VITAL SIGNS: Blood pressure 111/54, temperature 98.3, pulse 84, respirations 18, oxygen saturation 95%. GENERAL: The patient is lying in bed comfortably, not in any distress. Alert and oriented x3. HEENT: Conjunctivae normal. Oral mucosa moist. NECK: Supple. No JVD. No lymphadenopathy. CHEST: Normal vesicular breathing. CARDIAC: Heart sounds normal. ABDOMEN: Soft. Benign. No tenderness or visceromegaly. EXTREMITIES: Negative edema of feet. LABORATORY DATA: BMP unremarkable, except creatinine 1.09. CBC unremarkable, except hemoglobin 9.4. IMPRESSION AND PLAN: 1. Status post fall, most likely mechanical in origin, and the patient was found on the floor with left pubic body. Evaluated by Orthopedics. Continue pain medications. PT evaluation. Continue mobilization as per recommendation of Ortho. 2. Followup echocardiogram. Continue tele monitoring. 3. History of coronary artery disease, status post PCI. Continue antiplatelet therapy. 4. History of diastolic congestive heart failure, currently looks compensated. 5. History of peripheral vascular disease, status post endovascular aortic aneurysm repair. Continue supportive care. 6. Hypertension. Continue monitoring blood pressure. 7. Chronic back pain. Continue pain medication as needed. 8. DVT/GI prophylaxis. Plan discussed with the patient and nursing staff. The patient most likely needs placement. Job ID: [id number]
--- NOTE | 2019-02-28 11:16 | CON ---
DATE OF CONSULTATION: This is Matt Kirby PA-C dictating a report for Bj Chou MD. REASON FOR CONSULTATION: We were asked to see this nice lady for a pelvic fracture. HISTORY OF PRESENT ILLNESS: The patient was in her normal state of health. She got up last night and is not sure what happened. She was not dizzy, did not lose consciousness, but she just fell. She states she has had a pelvic fracture in the past, so she had a pretty good idea that she had broken this again. She has had bilateral hips replaced by Dr. Hebert and has no current hip pain, just pain through the pelvic region. Bilateral lower extremities, no numbness and tingling. She denies any other injuries. PAST MEDICAL HISTORY: 1. Coronary artery disease with stent. 2. Diastolic dysfunction. 3. Mitral regurgitation. 4. PVD. 5. Appendectomy. 6. Hysterectomy. 7. Bilateral hip replacement. 8. Tobacco abuse. 9. Hypertension. 10. Chronic back pain. 11. Chronic anemia. 12. She has had iliofemoral endarterectomies. 13. She has had an endovascular aortic aneurysm repair. SOCIAL HISTORY: Lives alone. Still smokes 1-2 packs a day. No alcohol or illicit drug use. CURRENT MEDICATIONS: 1. Aspirin. 2. Plavix. 3. Prednisone. 4. Gabapentin. 5. Protonix. 6. Metoprolol. 7. Imdur. 8. Ferrous sulfate. ALLERGIES: 1. ALENDRONATE. 2. CITALOPRAM. 3. ULTRAM. 4. SULFA. FAMILY HISTORY: Family history for this particular visit is noncontributory. PAST SURGICAL HISTORY: 1. Stent to RCA. 2. Endovascular aortic aneurysm repair. 3. Bilateral iliofemoral endarterectomies. 4. Bilateral hip replacements. REVIEW OF SYSTEMS: Currently with pelvic pain. Denies any chest pain. Current shortness of breath. No bowel or bladder issues. Main complaint is left-sided pelvic pain. Otherwise, rest of review of system is negative. PHYSICAL EXAMINATION: GENERAL: Very sweet, pleasant female, resting in a bed in room 245, in no acute distress. Speech clear. Affect pleasant. Answers questions appropriately. She is alert and oriented x3. HEENT: Normal exam. Face symmetric. Tongue midline. NECK: Supple. Trachea midline. LUNGS: Respiratory rate 16. No distress. EXTREMITIES: Upper extremities; equal size, shape, symmetry. Lower extremities; normal bulk and tone. Bilateral lower extremities; moving these okay, right greater than left. Sensations are limited, but equal on both sides. DP and PT pulses palpable. PELVIS: When I rock the pelvis, it does cause her significant pain on the left side. ASSESSMENT: Pelvic fracture on the left. PLAN: Weightbearing as tolerated. We will get Physical Therapy to see her, do some walker training, also I put in for case management, she would like to go to [facility] in [place]. Pain management per [facility]. I told her to follow up with her doctor, Dr. Murphy. She thinks she has been getting up at night and walking around, there are things moved in the morning. She probably needs to get to the bottom of this, so she does not fall again and have other fractures which the patient understands. We will check on her on an as needed basis. If she needs further care, we will evaluate her as different pains arise. Otherwise, she may be able to follow up with Dr. Hebert as that is her primary orthopedist. Job ID: [id number]
[2019-02-28] MEDS: Nicotine 21 MG PATCH TD SCH (17:02)
[2019-02-28] MEDS: Clopidogrel Bisulfate 75 MG TAB PO SCH (20:21)
[2019-02-28] MEDS ORDERED: Lidocaine Patch Removal 1 EACH TOP SCH (21:00)
[2019-03-01] MEDS: HYDROcodone/Acetaminophen 5/325 mg Tablet PO PRN ×4 (00:01→14:15)
[2019-03-01 05:06] LABS: #Basophils 0.1 thou/uL (0.0-0.2); #Eosinphils 0.1 thou/uL (0.0-0.7); #Lymphocytes 1.6 thou/uL (1.20-3.40); #Monocytes 0.8 thou/uL (0.11-0.59); #Neutrophils 6.8 thou/uL (1.40-6.50); %Basophils 0.7 % (0.0-1.0); %Eosinophils 1.2 % (0.0-10.0); %Lymphocytes 16.9 % (21.0-51.0); %Monocytes 8.2 % (0.0-10.0); Hemoglobin 8.4 g/dL (12.0-16.0); Mean Corpuscular HGB CONC 31.5 g/dL (32.0-36.0); Mean Corpuscular Hemoglobin 25.9 pg (27.0-31.0); Mean Corpuscular Volume 82.2 fL (78.0-98.0); Mean Platelet Volume 7.4 fL (7.4-10.4); Platelet Count 337 thou/uL (130-400); RBC Distribution Width 15.4 % (11.5-14.5); Red Blood Cell (RBC) Count 3.26 mill/uL (4.20-5.40); White Blood Cell (WBC) Count 9.4 thou/uL (4.8-10.8)
[2019-03-01 05:15] LABS: Anion Gap 12 mmol/L (10-20); BUN (Urea Nitrogen) 31 mg/dL (9.8-20.1); Calc. Creatinine Clearance 34 mL/min (70-130); Calcium 8.2 mg/dL (7.8-10.44); Carbon Dioxide 19 mmol/L (23-31); Chloride 105 mmol/L (98-107); Estimated GFR-MDRD 44; Glucose 107 mg/dL (83-110); Potassium 3.3 mmol/L (3.5-5.1); Sodium 133 mmol/L (136-145)
[2019-03-01] MEDS: Ferrous Sulfate 325 MG TAB PO SCH (09:05)
[2019-03-01] MEDS: Aspirin Chewable 81 MG TAB PO SCH (09:05)
[2019-03-01] MEDS: predniSONE 5 MG TAB PO SCH (09:06)
[2019-03-01] MEDS: Lidocaine 5% Patch TD SCH (09:06)
[2019-03-01] MEDS: Enoxaparin Sodium 40 MG/0.4 ML SYRINGE SC SCH (09:06)
[2019-03-01] MEDS: Gabapentin 300 MG CAP PO SCH ×2 (09:06→11:34)
[2019-03-01] MEDS: Isosorbide Mononitrate (ER) 30 MG TAB PO SCH (09:06)
[2019-03-01] MEDS ORDERED: Potassium Chloride 20 MEQ TAB PO SCH (09:45)
[2019-03-01 12:00] VITALS: BP 118/64; TEMP 98.1
[2019-03-01] MEDS: Nicotine 21 MG PATCH TD SCH (14:16)
--- NOTE | 2019-03-02 19:02 | DIS ---
DATE OF ADMISSION: 02/27/2019 DATE OF DISCHARGE: 03/01/2019 DISCHARGE DIAGNOSES: 1. Fall, comminuted pelvic fracture. 2. Coronary artery disease status post PCI in the past. 3. History of diastolic heart failure. 4. History of peripheral vascular disease. 5. Hypertension. 6. Abnormal CT findings of possible left ventricular apical aneurysm. HOSPITAL COURSE: The patient is an 83-year-old female, who initially presented to the hospital on 02/27, after having a fall. She lives at home. She was found to have a comminuted fracture at the center of the left pubic body. She was seen by Orthopedic, who recommended the patient to continue physical therapy with weightbearing as tolerated. We initially recommended the patient to go into a rehab facility; however due to financial issues, she was unable to do so. She did have a trauma protocol with CT cervical spine and a brain CT. Her CT cervical spine did not show any acute fractures or malalignments. CT of the brain did not show any acute abnormalities either. The patient did have a CT dissection protocol done after the fall, which did indicate that she does have a small left ventricular apical aneurysm, 1.4 cm in size. Also, recommended to follow up for a thickened white apical pleura bleb in about 3 months. Also, she also has had a history of infrarenal aortic aneurysm and she has had a repair and has a little bit of an endoleak. The patient has been asked to follow up with primary and in regard to these findings, we did do an echocardiogram on this patient. I did speak with Cardiology, who stated that due to body habitus, we were unable to visualize the apex really well in regard to the CT findings. Her EF is 60% to 65%, she does have some severe concentric left ventricular hypertrophy and some mild aortic stenosis and some mild tricuspid regurgitation. I have asked her to follow up with her program arranger to further investigate this. I have also told her to follow up with her primary that she will need a CT of the chest in about 3 months. I will give her some home health and PT. HOME MEDICATIONS: Will be as of the followin. Tylenol with codeine 2 tablets q.6 hours p.r.n. 2. Aspirin 81 mg daily. 3. Clopidogrel 75 mg daily. 4. Iron 325 daily. 5. Gabapentin 600 mg b.i.d. and then gabapentin 300 mg at noon. 6. Isosorbide 30 mg daily. 7. Metoprolol 25 mg daily. 8. Protonix 40 mg daily. 9. p.o. tab daily. PHYSICAL EXAMINATION: VITAL SIGNS: Temperature 98.1, pulse 75, respirations 20, 95% on room air, blood pressure 118/64. GENERAL: She is awake, alert, and oriented x3. Does not appear in distress. HEENT: Normocephalic, atraumatic. No lymphadenopathy noted. Pupils equal, reactive to light. CV: S1 and S2 present. No murmurs, rubs, or gallops. Again, she will be discharged home. She has been walking with a walker and again, she has refused to go to inpatient rehab due to financial issues. She is going to go home with home health and PT. Job ID: [id number]
== END 2019-03-01 16:31 | disposition home or self-care (01) ==
LOC: ERS 13:57 → 2SW 16:25
PROVIDERS: ADMIT Internal Medicine; ATTEND Internal Medicine
DX: S32.592A Other specified fracture of left pubis, initial encounter for closed fracture (principal); R55 Syncope and collapse; I34.0 Nonrheumatic mitral (valve) insufficiency; G89.29 Other chronic pain; M54.9 Dorsalgia, unspecified; F17.210 Nicotine dependence, cigarettes, uncomplicated; I25.10 Atherosclerotic heart disease of native coronary artery without angina pectoris; I11.0 Hypertensive heart disease with heart failure; I50.30 Unspecified diastolic (congestive) heart failure; D64.9 Anemia, unspecified; Z66 Do not resuscitate; Z79.02 Long term (current) use of antithrombotics/antiplatelets; Z79.52 Long term (current) use of systemic steroids; Z79.82 Long term (current) use of aspirin; Z79.83 Long term (current) use of bisphosphonates; Z79.899 Other long term (current) drug therapy; Z88.2 Allergy status to sulfonamides; Z88.5 Allergy status to narcotic agent; Z88.8 Allergy status to other drugs, medicaments and biological substances; Z95.5 Presence of coronary angioplasty implant and graft; W19.XXXA Unspecified fall, initial encounter
CPT/HCPCS: 80048 ×2; 85025 ×2; 93306; 94640 ×3; 96372 ×2; 96374; 97116; 97139 ×5; 99285; G0378 ×3; 36415; G0390; J1650; J3010; J7512; J7620

== ENCOUNTER 2019-03-12 18:58 | Inpatient (IN) | payer MEDICARE ==
[2019-03-12] MEDS ORDERED: Fentanyl 100 MCG/2 ML VIAL ONE (20:43)
[2019-03-12 21:17] LABS: CKMB 1.7 ng/mL (0-6.6)
[2019-03-12 21:27] LABS: Alcohol Less than 10 mg/dL (Less than 10); Salicylate Less than 8.0 mg/dL (15.0-30.0)
--- NOTE | 2019-03-12 22:25 | CT ---
CT CHEST, ABDOMEN AND PELVIS WITHOUT CONTRAST: 03/12/19 HISTORY: Left hip pain, pain all over. Fever, generalized pain. Recent fall. FINDINGS: Absence of oral and IV contrast reduces the sensitivity for the exam particularly for evaluation of m ediastinal, hilar, vascular structures, solid organs and bowel. There are vascular calcifications with a 5 cm abdominal aortic aneurysm and aortic bi-iliac stent gra ft. The abdominal aortic aneurysm is essentially stable. No pleural or pericardial effusions are see n. There are bullous changes in the lung apices, predominantly on the right. No focal areas of conso lidation, pneumothoraces or lung masses are seen. No calculi is seen in the kidneys, ureters or the urinary bladder. No free air, free fluid is noted i n the abdomen or pelvis. There are bilateral hip arthroplasties which result in artifact making it difficult to evaluate pelvi c contents. No calcified gallstones are seen. There is a right renal cyst. There is colonic diverticulosis. The s mall bowel loops are not abnormally dilated. IMPRESSION: 1. Essentially stable abdominal aortic aneurysm since 02/27/2019. 2. No CT evidence of urinary tract calculi or obstruction. 3. Colonic diverticulosis. POS: BROCK
[2019-03-12] MEDS ORDERED: Ondansetron ODT 4 MG TAB SL PRN (22:37)
[2019-03-12] MEDS ORDERED: Ondansetron PF 4 MG/2 ML Vial IVP PRN (22:37)
[2019-03-12] MEDS ORDERED: Morphine 4 MG/ML VIAL SLOW IVP PRN (22:37)
[2019-03-13] MEDS ORDERED: predniSONE 20 MG TAB PO SCH (02:37)
[2019-03-13] MEDS ORDERED: Senokot S 8.6-50 MG TAB PO PRN (02:37)
[2019-03-13] MEDS ORDERED: Ondansetron PF 4 MG/2 ML Vial IVP PRN (02:37)
[2019-03-13] MEDS ORDERED: hydrALAZINE 20 MG/ML VIAL SLOW IVP PRN (02:37)
[2019-03-13] MEDS ORDERED: Ondansetron ODT 4 MG TAB PO PRN (02:37)
[2019-03-13] MEDS ORDERED: Sodium Chloride 0.9% 1,000 ML IV SCH (02:37)
[2019-03-13] MEDS ORDERED: Diabetic Tussin 200 MG/10 ML UDCUP PO PRN (02:37)
[2019-03-13 03:41] LABS: Troponin I 0.099 ng/mL (< 0.028)
[2019-03-13 03:43] LABS: ALT (SGPT) 19 U/L (8-55); AST (SGOT) 35 U/L (5-34); Albumin 2.8 g/dL (3.4-4.8); Alkaline Phosphatase 61 U/L (40-110); Anion Gap 15 mmol/L (10-20); BUN (Urea Nitrogen) 52 mg/dL (9.8-20.1); Bilirubin, Total 0.5 mg/dL (0.2-1.2); Calc. Creatinine Clearance 15 mL/min (70-130); Calcium 7.6 mg/dL (7.8-10.44); Carbon Dioxide 14 mmol/L (23-31); Chloride 106 mmol/L (98-107); Estimated GFR-MDRD 14; Globulin 3.1 g/dL (2.4-3.5); Glucose 87 mg/dL (83-110); Potassium 3.9 mmol/L (3.5-5.1); Protein, Total 5.9 g/dL (6.0-8.3); Sodium 131 mmol/L (136-145)
[2019-03-13] MEDS: HYDROcodone/Acetaminophen 5/325 mg Tablet PO PRN ×5 (03:43→22:29)
[2019-03-13] MEDS: Nicotine 14 MG PATCH TD SCH (03:45)
[2019-03-13] MEDS: Cefepime 2 GM in Sodium Chloride 0.9% 100 ML IVPB SCH ×2 (03:45→14:50)
[2019-03-13 04:12] LABS: Band 14 % (5-11); Hemoglobin 8.4 g/dL (12.0-16.0); Hypochromia SLIGHT = 6-15 cells (100X) (0-5/hpf); Lymphocytes 6 % (21-51); MDiff Complete? YES; Mean Corpuscular HGB CONC 30.9 g/dL (32.0-36.0); Mean Corpuscular Hemoglobin 26.7 pg (27.0-31.0); Mean Corpuscular Volume 86.5 fL (78.0-98.0); Mean Platelet Volume 7.8 fL (7.4-10.4); Monocytes 3 % (0-10); Neutrophil 77 % (42-75); Platelet Count 309 thou/uL (130-400); Platelet Morphology Comment Appears Adequate; RBC Distribution Width 16.9 % (11.5-14.5); Red Blood Cell (RBC) Count 3.15 mill/uL (4.20-5.40); White Blood Cell (WBC) Count 10.7 thou/uL (4.8-10.8)
[2019-03-13 06:56] LABS: Troponin I 0.103 ng/mL (< 0.028)
[2019-03-13] MEDS: Mometasone/Formoterol 120 PUFF INHALER INH SCH ×2 (07:29→18:24)
[2019-03-13] MEDS: Famotidine 20 MG TAB PO SCH (08:05)
[2019-03-13] MEDS: Aspirin Chewable 81 MG TAB PO SCH (08:05)
[2019-03-13] MEDS: Ferrous Sulfate 325 MG TAB PO SCH (08:05)
[2019-03-13] MEDS: Isosorbide Mononitrate (ER) 30 MG TAB PO SCH (08:05)
[2019-03-13] MEDS: predniSONE 20 MG TAB PO SCH (08:05)
[2019-03-13] MEDS ORDERED: Sodium Bicarbonate 150 MEQ in Dextrose 5% in Water 1,000 ML IV SCH (08:30)
[2019-03-13] MEDS ORDERED: Gabapentin 300 MG CAP PO SCH ×2 (09:00→12:00)
[2019-03-13] MEDS: Benzonatate 100 MG CAP PO PRN ×3 (09:33→23:57)
--- NOTE | 2019-03-13 12:07 | PDOC.HOSPP ---
- Subjective Encounter Date: 03/13/19 Encounter Time: 09:03 Subjective: 83 y/o female with COPD, diastolic HF, CAD, recently discharged from hospital following treatment of right pelvic fracture due to fall/syncope, now readmitted after she was found by home health nurse to be febrile and in pains with generalized weakness. Further evaluation revealed tachycardia, temp of 105 , hyponatremia Rola and others. CXR showed bilateral interstitial prominence suggestive of pneumonitis or edema. She was started on IVF and broad spectrum antibiotics. Reports feeling better. - Objective Vital Signs & Weight: Vital Signs (12 hours) Temp Pulse Pulse Resp BP BP BP 03/13/19 11:40 97.8 F 77 18 113/59 L 03/13/19 10:29 76 16 03/13/19 07:36 75 16 03/13/19 07:29 75 16 03/13/19 07:21 97.9 F 87 18 117/57 L 03/13/19 03:30 97.8 F 88 20 154/63 H 03/13/19 02:05 97.6 F 75 18 127/64 Pulse Ox 03/13/19 11:40 96 03/13/19 10:29 93 L 03/13/19 07:36 95 03/13/19 07:29 95 03/13/19 07:21 95 03/13/19 03:30 97 03/13/19 02:05 96 Weight Weight 153 lb 8 oz I&O: 03/12/19 03/13/19 03/14/19 06:59 06:59 06:59 Intake Total 350 Balance 350 Result Diagrams: 03/13/19 02:57 03/13/19 02:57 Hospitalist ROS - Medication Medications: Active Medications Generic Name Dose Route Start Last Admin Trade Name Freq PRN Reason Stop Dose Admin Hydrocodone Bitart/Acetaminophen 1 tab 03/13/19 02:37 03/13/19 08:03 [place] 5/325 PO 1 tab Q4H PRN Administration Moderate Pain (4-6) Albuterol/Ipratropium 3 ml 03/13/19 02:37 03/13/19 10:29 Duoneb NEB 3 ml [id number] ALINE Administration Aspirin 81 mg 03/13/19 09:00 03/13/19 08:05 Aspirin Chewable PO 81 mg DAILY ALINE Administration Benzonatate 100 mg 03/13/19 02:37 03/13/19 09:33 Tessalon PO 100 mg Q6H PRN Administration Cough Famotidine 20 mg 03/13/19 09:00 03/13/19 08:05 Pepcid PO 20 mg QAM ALINE Administration Ferrous Sulfate 325 mg 03/13/19 08:00 03/13/19 08:05 Feosol PO 325 mg QAM-WM ALINE Administration Cefepime HCl 2 gm/ Sodium 100 mls @ 200 mls/hr 03/13/19 03:00 03/13/19 03:45 Chloride IVPB 100 mls 0300,1500 ALINE Administration Levofloxacin 500 mg/ Device 100 mls @ 100 mls/hr 03/13/19 04:00 03/13/19 03: 44 IVPB 100 mls Q24HR ALINE Administration Sodium Bicarbonate 150 meq/ 1,150 mls @ 100 mls/hr 03/13/19 08:30 03/13/19 09 :22 Dextrose/Water IV 03/13/19 19:59 1,150 mls NOW ALINE Administration Isosorbide Mononitrate 30 mg 03/13/19 09:00 03/13/19 08:05 Imdur Er PO 30 mg DAILY ALINE Administration Metoprolol Succinate 25 mg 03/13/19 09:00 03/13/19 08:05 Toprol Xl PO 25 mg DAILY ALINE Administration Mometasone Furoate/Formoterol Fumar 2 puff 03/13/19 06:30 03/13/19 07:29 Dulera 200 Mcg/5 Mcg Inhaler INH 2 puff BID-RT ALINE Administration Nicotine 14 mg 03/13/19 06:00 03/13/19 03:45 Nicoderm Patch TD Not Given Q24HR ALINE Prednisone 40 mg 03/13/19 08:00 03/13/19 08:05 Prednisone PO 40 mg QAM-WM ALINE Administration Sodium Chloride 10 ml 03/13/19 09:00 03/13/19 08:05 Flush - Normal Saline IVF Not Given Q12HR ALINE - Exam General Appearance: awake alert Eye: anicteric sclera ENT: normocephalic atraumatic Neck: supple Heart: RRR Respiratory - other findings: fair air entry with scattered transmitted sound/ crackles. Gastrointestinal: soft, non-tender, non-distended, normal bowel sounds Extremities - other findings: trace leg edema Neurological: cranial nerve grossly intact, no focal deficits Neurological - other findings: memeory lapses noted Musculoskeletal: generalized weakness Musculoskeletal - other findings: right hip pain. Hosp A/P (1) Sepsis Code(s): A41.9 - SEPSIS, UNSPECIFIED ORGANISM Status: Acute (2) ROLA (acute kidney injury) Code(s): N17.9 - ACUTE KIDNEY FAILURE, UNSPECIFIED Status: Acute (3) COPD exacerbation Code(s): J44.1 - CHRONIC OBSTRUCTIVE PULMONARY DISEASE W (ACUTE) EXACERBATION Status: Acute (4) Pneumonia Code(s): J18.9 - PNEUMONIA, UNSPECIFIED ORGANISM Status: Acute (5) Elevated troponin Code(s): R79.89 - OTHER SPECIFIED ABNORMAL FINDINGS OF BLOOD CHEMISTRY Status : Acute (6) Metabolic acidosis Code(s): E87.2 - ACIDOSIS Status: Acute (7) Physical deconditioning Code(s): R53.81 - OTHER MALAISE Status: Acute (8) Hyponatremia Code(s): E87.1 - HYPO-OSMOLALITY AND HYPONATREMIA Status: Acute (9) CAD (coronary artery disease) Code(s): I25.10 - ATHSCL HEART DISEASE OF [place] CORONARY ARTERY W/O ANG PCTRS Status: Chronic (10) Chronic diastolic heart failure Code(s): I50.32 - CHRONIC DIASTOLIC (CONGESTIVE) HEART FAILURE Status: Chronic (11) Hypertension Code(s): I10 - ESSENTIAL (PRIMARY) HYPERTENSION Status: Chronic Qualifiers: (12) Protein-calorie malnutrition, moderate Code(s): E44.0 - MODERATE PROTEIN-CALORIE MALNUTRITION Status: Chronic (13) Tobacco abuse Code(s): Z72.0 - TOBACCO USE Status: Chronic - Plan Start sodium bicarb infusion. Continue antibiotic Get UA and urine electrolytes Consult Nephrology
[2019-03-13 13:55] LABS: Bilirubin Negative (Negative); Blood, Urine Large (Negative); Glucose, Urine (Dipstick) Negative (Negative); Leukocyte Large (Negative); Nitrite Positive (Negative); Protein, Urine (Dipstick) > or equal to 300 mg/dL (Neg-Trace); Urobilinogen 0.2 mg/dL (Less than 2)
[2019-03-13 14:03] LABS: Clarity Turbid (Clear); Squamous Epithelial 0-3 HPF (0-3); Transitional Epithelial 0-3 HPF (None Seen); WBC/HPF Greater than 50 HPF (0-3)
[2019-03-13 14:04] LABS: Bacteria/HPF 2+ HPF (None Seen); Renal Epithelial None Seen HPF (None Seen)
[2019-03-13 14:22] LABS: Creatinine, Urine 57.46 mg/dL (47-110)
--- NOTE | 2019-03-13 16:23 | CON ---
DATE OF CONSULTATION: CONSULTING PHYSICIAN: Rhonda Cardona MD REQUESTING PHYSICIAN: Dr. Abdul. REASON FOR CONSULTATION: Acute on chronic kidney disease and hyponatremia with worsening metabolic acidosis. IMPRESSION: 1. Acute on chronic kidney disease. This is likely cytokine mediated in the context of infection plus or minus prerenal component of incipient sepsis. 2. Urinary tract infection. 3. Worsening metabolic acidosis, likely due to re-expansion acidosis, status post normal saline infusion. 4. Hyponatremia seems to be somewhat chronic since I saw this patient in 2017 with hyponatremia, then in the context of intravascular depletion. 5. Chronic kidney disease, stage 3 at baseline. PLAN: 1. I do agree with bicarb infusion and to discontinue after 1 L as the patient is able to maintain p.o. intake. 2. Renally dose all medications and avoid potentially nephrotoxic agents. 3. Monitor the electrolyte especially potassium as metabolic acidosis begins to be corrected because of shift of potassium. 4. Check a urine osmolality to further characterize the hyponatremia in this patient. HISTORY OF PRESENT ILLNESS: History is that of 83-year-old female patient, who got transferred from [place] where the patient presented with fever and noted to have evidence of urinary tract infection as well as possible pneumonitis. The patient also noted with elevated creatinine as well as elevated creatinine above her baseline creatinine as well as hyponatremia. I did see this patient in the past here with hyponatremia, which responded to conservative management. At this time of history taking, the patient seems to be feeling better, status post administration of antibiotics. Over the course of 24 hours, the patient's chemistry seems to be consistent with worsening metabolic acidosis as well as elevation in creatinine. As a result of these findings, decision has been taken to involve Renal in the management of this case. PAST MEDICAL HISTORY: Significant for recent hip fracture status post fall, COPD, dyslipidemia, reflux disease, diastolic CHF, anemia, hyponatremia, and hypertension. MEDICATIONS: Reviewed and as documented on [employer]. ALLERGIES: ALENDRONATE, CELEXA (CITALOPRAM), SULFA, TRAMADOL, AND VITAMIN D. REVIEW OF SYSTEMS: As documented in the body of history. All the other systems were reviewed and found not to be significantly related to presenting illness. PHYSICAL EXAMINATION: GENERAL: The patient was found not to be in any obvious distress, noted with the following vital signs. VITAL SIGNS: Afebrile, temperature 97.8, pulse 77, respiratory rate of 18, O2 saturations 96% with blood pressure of 113/59. HEENT: Unremarkable. CARDIOVASCULAR SYSTEM: First and second heart sounds were heard. RESPIRATORY SYSTEM: Clear to auscultation. DIGESTIVE SYSTEM: Revealed a benign abdomen with positive bowel sounds. EXTREMITIES: No peripheral edema. SKIN: No new gross rash. LYMPHATICS: No peripheral lymphadenopathy. SUMMARY: An 83-year-old female patient, who got transferred to us here with hyponatremia worsening metabolic acidosis and acute kidney injury. Thank you for this consultation. We will follow with you. Job ID: [id number]
[2019-03-13] MEDS: Clopidogrel Bisulfate 75 MG TAB PO SCH (20:54)
[2019-03-13] MEDS ORDERED: Prevnar 13-Val Conj/PF 0.5 ML SYRINGE IM ONE (21:00)
[2019-03-13] MEDS: Acetaminophen/Codeine 30-300mg Tablet PO PRN (23:57)
[2019-03-14] MEDS: HYDROcodone/Acetaminophen 5/325 mg Tablet PO PRN ×4 (04:03→20:59)
[2019-03-14 04:54] LABS: ALT (SGPT) 22 U/L (8-55); AST (SGOT) 25 U/L (5-34); Alkaline Phosphatase 74 U/L (40-110); Anion Gap 18 mmol/L (10-20); BUN (Urea Nitrogen) 62 mg/dL (9.8-20.1); Bilirubin, Total 0.2 mg/dL (0.2-1.2); Calc. Creatinine Clearance 14 mL/min (70-130); Calcium 7.5 mg/dL (7.8-10.44); Carbon Dioxide 17 mmol/L (23-31); Chloride 97 mmol/L (98-107); Estimated GFR-MDRD 13; Globulin 3.1 g/dL (2.4-3.5); Glucose 156 mg/dL (83-110); Potassium 3.1 mmol/L (3.5-5.1); Protein, Total 6.1 g/dL (6.0-8.3); Sodium 129 mmol/L (136-145)
[2019-03-14 05:56] LABS: Band 12 % (5-11); Hemoglobin 7.4 g/dL (12.0-16.0); Lymphocytes 2 % (21-51); MDiff Complete? YES; Mean Corpuscular HGB CONC 32.1 g/dL (32.0-36.0); Mean Corpuscular Hemoglobin 26.9 pg (27.0-31.0); Mean Corpuscular Volume 83.6 fL (78.0-98.0); Mean Platelet Volume 8.3 fL (7.4-10.4); Monocytes 3 % (0-10); Neutrophil 83 % (42-75); Platelet Count 278 thou/uL (130-400); Platelet Morphology Comment Appears Adequate; RBC Distribution Width 16.8 % (11.5-14.5); RBC Morphology Normal; Red Blood Cell (RBC) Count 2.76 mill/uL (4.20-5.40); White Blood Cell (WBC) Count 13.2 thou/uL (4.8-10.8)
[2019-03-14] MEDS: Benzonatate 100 MG CAP PO PRN ×2 (06:18→21:00)
[2019-03-14] MEDS: Acetaminophen/Codeine 30-300mg Tablet PO PRN ×2 (06:18→23:57)
[2019-03-14] MEDS: Nicotine 14 MG PATCH TD SCH ×3 (06:39→12:11)
[2019-03-14] MEDS: Mometasone/Formoterol 120 PUFF INHALER INH SCH ×2 (06:57→18:43)
[2019-03-14] MEDS: predniSONE 20 MG TAB PO SCH (08:41)
[2019-03-14] MEDS: Isosorbide Mononitrate (ER) 30 MG TAB PO SCH (08:41)
[2019-03-14] MEDS: Famotidine 20 MG TAB PO SCH (08:41)
[2019-03-14] MEDS: Ferrous Sulfate 325 MG TAB PO SCH (08:45)
[2019-03-14] MEDS: Aspirin Chewable 81 MG TAB PO SCH (08:45)
[2019-03-14] MEDS ORDERED: Potassium Chloride 20 MEQ TAB PO SCH (09:15)
[2019-03-14] MEDS ORDERED: Sodium Bicarbonate 75 MEQ in Sodium Chloride 0.45% 1,000 ML IV SCH (09:15)
[2019-03-14 10:17] LABS: Magnesium 2.2 mg/dL (1.6-2.6)
[2019-03-14] MEDS: Nicotine 21 MG PATCH TOP SCH (12:15)
--- NOTE | 2019-03-14 14:04 | PDOC.HOSPP ---
- Subjective Encounter Date: 03/14/19 Encounter Time: 09:02 Subjective: 83 y/o female with COPD, diastolic HF, CAD, recently discharged from hospital following treatment of right pelvic fracture due to fall/syncope, now readmitted after she was found by home health nurse to be febrile and in pains with generalized weakness. Further evaluation revealed tachycardia, temp of 105 , hyponatremia Rola and others. UA is suggestive of UTI and CXR showed bilateral interstitial prominence suggestive of pneumonitis or edema. She was started on IVF and broad spectrum antibiotics. Reports feeling better. complains of being jittery and anxious. - Objective Vital Signs & Weight: Vital Signs (12 hours) Temp Pulse Resp BP Pulse Ox 03/14/19 11:49 98.6 F 85 20 129/88 95 03/14/19 10:00 73 16 98 03/14/19 07:10 98.5 F 80 18 122/70 98 03/14/19 06:58 76 16 98 03/14/19 06:57 76 16 98 03/14/19 03:00 97.3 F L 86 20 138/66 93 L 03/14/19 02:29 74 16 95 Weight Admit Weight 153 lb 8 oz Weight 162 lb 3 oz I&O: 03/13/19 03/14/19 03/15/19 06:59 06:59 06:59 Intake Total 350 2950 Output Total 2650 Balance 350 300 Result Diagrams: 03/14/19 03:50 03/14/19 03:50 Hospitalist ROS - Medication Medications: Active Medications Generic Name Dose Route Start Last Admin Trade Name Freq PRN Reason Stop Dose Admin Acetaminophen/Codeine Phosphate 1 tab 03/13/19 02:37 03/14/19 06:18 Tylenol #3 PO 1 tab Q8H PRN Administration Mild Pain (1-3) Hydrocodone Bitart/Acetaminophen 1 tab 03/13/19 02:37 03/14/19 08:42 [place] 5/325 PO 1 tab Q4H PRN Administration Moderate Pain (4-6) Albuterol/Ipratropium 3 ml 03/13/19 02:37 03/14/19 10:00 Duoneb NEB 3 ml Q2LY-RG ALINE Administration Aspirin 81 mg 03/13/19 09:00 03/14/19 08:45 Aspirin Chewable PO 81 mg DAILY ALINE Administration Benzonatate 100 mg 03/13/19 02:37 03/14/19 06:18 Tessalon PO 100 mg Q6H PRN Administration Cough Clopidogrel Bisulfate 75 mg 03/13/19 21:00 03/13/19 20:54 Plavix PO 75 mg HS ALINE Administration Famotidine 20 mg 03/13/19 09:00 03/14/19 08:41 Pepcid PO 20 mg QAM ALINE Administration Ferrous Sulfate 325 mg 03/13/19 08:00 03/14/19 08:45 Feosol PO 325 mg QAM-WM ALINE Administration Guaifenesin 200 mg 03/13/19 02:37 03/13/19 20:54 Robitussin Sf PO 200 mg Q4H PRN Administration Cough Sodium Bicarbonate 75 meq/ 1,075 mls @ 100 mls/hr 03/14/19 09:15 03/14/19 09: 38 Sodium Chloride IV 1,075 mls INF ALINE Administration Isosorbide Mononitrate 30 mg 03/13/19 09:00 03/14/19 08:41 Imdur Er PO 30 mg DAILY ALINE Administration Metoprolol Succinate 25 mg 03/13/19 09:00 03/14/19 08:45 Toprol Xl PO 25 mg DAILY ALINE Administration Mometasone Furoate/Formoterol Fumar 2 puff 03/13/19 06:30 03/14/19 06:57 Dulera 200 Mcg/5 Mcg Inhaler INH 2 puff BID-RT ALINE Administration Nicotine 21 mg 03/14/19 13:00 03/14/19 12:15 Nicoderm Patch TOP 21 mg Q24HR ALINE Administration Prednisone 40 mg 03/13/19 08:00 03/14/19 08:41 Prednisone PO 40 mg QAM-WM ALINE Administration Sodium Chloride 10 ml 03/13/19 09:00 03/14/19 08:46 Flush - Normal Saline IVF 10 ml Q12HR ALINE Administration - Exam General Appearance: awake alert Eye: anicteric sclera ENT: normocephalic atraumatic, moist mucosa Neck: symmetric, no JVD Heart: RRR Respiratory: no wheezes, no ronchi, normal chest expansion Respiratory - other findings: fair air entry with scattered transmitted sound. Gastrointestinal: soft, non-tender, non-distended, normal bowel sounds Extremities: no cyanosis, no edema Neurological: cranial nerve grossly intact, no focal deficits Psychiatric: A&O x 3 Psychiatric - other findings: anxious. Hosp A/P (1) E coli bacteremia Code(s): R78.81 - BACTEREMIA Status: Acute (2) Sepsis Code(s): A41.9 - SEPSIS, UNSPECIFIED ORGANISM Status: Acute (3) ROLA (acute kidney injury) Code(s): N17.9 - ACUTE KIDNEY FAILURE, UNSPECIFIED Status: Acute (4) COPD exacerbation Code(s): J44.1 - CHRONIC OBSTRUCTIVE PULMONARY DISEASE W (ACUTE) EXACERBATION Status: Acute (5) Pneumonia Code(s): J18.9 - PNEUMONIA, UNSPECIFIED ORGANISM Status: Acute (6) Elevated troponin Code(s): R79.89 - OTHER SPECIFIED ABNORMAL FINDINGS OF BLOOD CHEMISTRY Status : Acute (7) Metabolic acidosis Code(s): E87.2 - ACIDOSIS Status: Acute (8) Physical deconditioning Code(s): R53.81 - OTHER MALAISE Status: Acute (9) Hyponatremia Code(s): E87.1 - HYPO-OSMOLALITY AND HYPONATREMIA Status: Acute (10) CAD (coronary artery disease) Code(s): I25.10 - ATHSCL HEART DISEASE OF [place] CORONARY ARTERY W/O ANG PCTRS Status: Chronic (11) Chronic diastolic heart failure Code(s): I50.32 - CHRONIC DIASTOLIC (CONGESTIVE) HEART FAILURE Status: Chronic (12) Hypertension Code(s): I10 - ESSENTIAL (PRIMARY) HYPERTENSION Status: Chronic Qualifiers: (13) Protein-calorie malnutrition, moderate Code(s): E44.0 - MODERATE PROTEIN-CALORIE MALNUTRITION Status: Chronic (14) Tobacco abuse Code(s): Z72.0 - TOBACCO USE Status: Chronic (15) Escherichia coli urinary tract infection Code(s): N39.0 - URINARY TRACT INFECTION, SITE NOT SPECIFIED; B96.20 - UNSP ESCHERICHIA COLI THE CAUSE OF DISEASES CLASSD ELSWHR Status: Acute (16) Anxiety Code(s): F41.9 - ANXIETY DISORDER, UNSPECIFIED Status: Acute (17) Hypokalemia Code(s): E87.6 - HYPOKALEMIA Status: Acute - Plan Replete serum potassium. Continue IVF therapy with sodium bicarb containing infusion as patient is clinically dry. get urine and plasma osmolality Start nicotine replacement start ativan as needed for anxiety Continue antibiotic Await culture susceptibility PT/Jona continue
[2019-03-14] MEDS: Cefepime 1 GM in Sodium Chloride 0.9% 100 ML IVPB SCH (14:08)
[2019-03-14] MEDS: Lorazepam 0.5 MG TAB PO PRN ×2 (15:20→23:57)
[2019-03-14] MEDS: Clopidogrel Bisulfate 75 MG TAB PO SCH (21:00)
--- NOTE | 2019-03-14 21:40 | HP ---
PRIMARY CARE PROVIDER: Masood Murphy MD. CHIEF COMPLAINT: Fever, generalized weakness. HISTORY OF PRESENT ILLNESS: This is an 83-year-old female who presented to [facility] complaining of fever, generalized weakness with recent comminuted left pubic body pelvic fracture after a fall. The patient was admitted to [facility] from 02/27 to 03/02/2019. Returning home, using a rolling walker for ambulation. The patient states she did well for approximately 24 hours, then noted increasing weakness, fatigue, and feeling chilled. The patient also admitted to increased cough beyond her baseline cough due to a lifetime of smoking. The patient denied any recurrent falls, documented fever at home, or exposure history. The patient states she has been compliant with her medication regimen but also continues to smoke up to 2 packs of cigarettes daily. The patient denied taking any home medications to relieve her symptoms. The patient denied any family members with similar symptoms. The patient denied any change to her bowel habits, blood in the stool, or emesis. In the emergency room, the patient underwent general evaluation, receiving Zosyn and vancomycin in the emergency room in addition to normal saline x2 L. The patient did meet sepsis criteria due to her temperature, tachycardia. The patient was also noted with anemia on screening complete blood count, receiving 1 unit of packed red blood cells. The patient was referred to the Hospitalist Service for admission. PAST MEDICAL HISTORY: 1. Status post fall with left pubic body pelvic fracture. 2. Coronary artery disease, status post percutaneous coronary intervention. 3. Diastolic congestive heart failure with preserved ejection fraction of 60% to 65%. 4. Peripheral vascular disease, status post percutaneous coronary intervention and endovascular repair of abdominal aneurysm. 5. Hypertension. 6. Tobacco abuse ongoing. 7. Generalized weakness. 8. Chronic anemia with iron deficiency component. PAST SURGICAL HISTORY: 1. Status post appendectomy. 2. Status post iliofemoral endarterectomies with patch angioplasty. 3. Status post endovascular aortic aneurysm repair. 4. Status post hysterectomy. 5. Status post bilateral total hip arthroplasty. CURRENT MEDICATIONS: 1. Aspirin 81 mg p.o. daily. 2. Plavix 75 mg p.o. daily. 3. Prednisone 5 mg p.o. daily. 4. Gabapentin 300 mg p.o. t.i.d.. 5. Protonix 40 mg p.o. daily. 6. Metoprolol 12.5 mg p.o. daily. 7. Imdur extended release 30 mg p.o. daily. 8. Ferrous sulfate 325 mg p.o. daily. ALLERGIES: ALENDRONATE, CITALOPRAM, ULTRAM, AND SULFA. FAMILY HISTORY: Mother at the age of 89 years after complications of CVA. Father at the age of 65 with a history of myocardial infarction. SOCIAL HISTORY: The patient resides in [place], [place] with her son living next door. Ambulates with a rolling walker. Recent fall sustaining a left pelvic fracture. Smokes up to 2 packs of cigarettes daily. No alcohol or illicit drug use. REVIEW OF SYSTEMS: CONSTITUTIONAL: Negative for weight loss or gain, ability to conduct usual activities. SKIN: Negative for rash, itching. EYES: Negative for double vision, pain. ENT/MOUTH: Negative for nose bleeding, neck stiffness, pain, tenderness. CARDIOVASCULAR: Negative for palpitations, dyspnea on exertion, orthopnea. RESPIRATORY: Negative for shortness of breath, wheezing, cough, hemoptysis, fever or night sweats. GASTROINTESTINAL: Negative for poor appetite, abdominal pain, heartburn, nausea, vomiting, constipation, or diarrhea. GENITOURINARY: Negative for urgency, frequency, dysuria, nocturia. MUSCULOSKELETAL: Negative for pain, swelling. NEUROLOGIC/PSYCHIATRIC: Negative for anxiety, depression. ALLERGY/IMMUNOLOGIC: Negative for skin rash, bleeding tendency. Otherwise negative except as stated per HPI. PHYSICAL EXAMINATION: VITAL SIGNS: On admission, blood pressure 128/62, pulse is 76, respiratory rate 18, temperature 97.6 degrees Fahrenheit, O2 saturation 96% on room air. GENERAL APPEARANCE: This is an 83-year-old female, alert and oriented x3, pleasant, responsive, in no acute distress. HEENT: Pupils are equal, round, reactive to light and accommodation. No scleral icterus. No conjunctival injection. Nares patent. OP is clear. Teeth in fair repair. NECK: Supple. No cervical adenopathy. No thyromegaly. No carotid bruits. No JVD appreciated. Cervical spine with full active and passive range of motion. No meningeal signs noted. CHEST: Diminished breath sounds bilaterally with scattered coarse rhonchi and occasional expiratory wheeze. CARDIOVASCULAR: S1, S2 with 2/6 systolic ejection murmur in the left upper sternal border. ABDOMEN: Rounded, soft, nontender, and nondistended. Bowel sounds are positive in all 4 quadrants. There is no hepatosplenomegaly. No abdominal bruits. No rebound or guarding appreciated. EXTREMITIES: Warm and dry with fair turgor. No clubbing, cyanosis, or asymmetric edema appreciated. Pulses palpable distally at the dorsalis pedis, posterior tibial, and popliteal arteries bilaterally. Capillary refill less than 2 seconds. NEUROLOGIC: Cranial nerves 2 through 12 are grossly intact. No focal or lateralizing signs appreciated. PERTINENT LABORATORY DATA AND X-RAY FINDINGS: Sodium 131, potassium 3.2, chloride 103, CO2 of 18, BUN 47, creatinine 2.79, estimated GFR 16, glucose 105. Lactic acid level 0.8. LFTs within normal limits. Troponin I is 0.196. BNP 495, previously noted 803 on 02/27/2019. Procalcitonin 42.4. CBC showed a white blood cell count of 9.9, hemoglobin 6.7 and previously noted 8.4 on 03/01/2019, hematocrit 22, MCV 83, platelet count 338 with 91% neutrophils. Plasma alcohol level less than 10. Portable chest x-ray dated 03/12/2019, showed diffuse interstitial prominence bilaterally. CT of the chest, abdomen, and pelvis dated 03/12/2019, showed stable abdominal aortic aneurysm. No evidence of urinary tract calculi or obstruction. Colonic diverticulosis noted. EKG dated 03/12/2019, by my interpretation shows a sinus mechanism with heart rates in the 80s. Attenuated R-waves noted in the precordial leads. Normal axis. No acute ST-T wave changes appreciated. ASSESSMENT AND PLAN: 1. Sepsis secondary to pneumonia. The patient will be admitted to the telemetry unit. We will continue general sepsis protocol. Continue cefepime 2 g IV q.12 hours with additional Levaquin 500 mg IV daily. Blood and urine cultures pending. Continue intravenous normal saline at 50 mL at 50 mL/h. 2. Bacterial pneumonia. Continue IV antibiotics as outlined previously. Add DuoNeb q.4 hours. Add Dulera 2 puffs inhaled b.i.d. 3. Acute anemia secondary to suspected blood loss. Status post 1 unit of packed red blood cells. Continue serial H and H monitoring. Consider GI consultation. Check stool guaiac. Continue IV fluids as outlined previously. 4. Subacute left pelvic fracture. Continue supportive management. PT and OT evaluation for functional assessment. Pain control as clinically indicated. General fall risk precautions. 5. Tobacco abuse. Offer smoking cessation resources prior to discharge. Add DuoNebs q.4 hours. 6. Elevated troponin I. Suspect demand ischemic state in the context of sepsis. Continue aspirin 81 mg daily and Plavix 75 mg daily. 7. Prophylaxis. Sequential compression devices while in bed. PT and OT evaluation for functional assessment. Pepcid 20 mg p.o. b.i.d. 8. Code status is full. Surrogate medical decision maker is the patient's son. Job ID: [id number]
[2019-03-15 04:52] LABS: Hemoglobin 7.9 g/dL (12.0-16.0); MDiff Complete? YES; Mean Corpuscular HGB CONC 32.6 g/dL (32.0-36.0); Mean Corpuscular Hemoglobin 26.6 pg (27.0-31.0); Mean Corpuscular Volume 81.7 fL (78.0-98.0); Mean Platelet Volume 8.8 fL (7.4-10.4); Platelet Count 326 thou/uL (130-400); RBC Distribution Width 17.1 % (11.5-14.5); Red Blood Cell (RBC) Count 2.98 mill/uL (4.20-5.40); White Blood Cell (WBC) Count 12.8 thou/uL (4.8-10.8)
[2019-03-15 04:53] LABS: Band 4 % (5-11); Hypochromia SLIGHT = 6-15 cells (100X) (0-5/hpf); Monocytes 2 % (0-10); Neutrophil 94 % (42-75); Platelet Morphology Comment Appears Adequate
[2019-03-15 04:54] LABS: Albumin 3.2 g/dL (3.4-4.8); Anion Gap 17 mmol/L (10-20); BUN (Urea Nitrogen) 66 mg/dL (9.8-20.1); BUN/Creatinine Ratio 18.97; Calc. Creatinine Clearance 15 mL/min (70-130); Calcium 7.7 mg/dL (7.8-10.44); Carbon Dioxide 17 mmol/L (23-31); Chloride 99 mmol/L (98-107); Estimated GFR-MDRD 13; Glucose 106 mg/dL (83-110); Potassium 4.1 mmol/L (3.5-5.1); Sodium 129 mmol/L (136-145)
[2019-03-15] MEDS: HYDROcodone/Acetaminophen 5/325 mg Tablet PO PRN (05:01)
[2019-03-15] MEDS: Mometasone/Formoterol 120 PUFF INHALER INH SCH ×3 (06:51→20:31)
[2019-03-15] MEDS: Acetaminophen/Codeine 30-300mg Tablet PO PRN (12:17)
[2019-03-15] MEDS: predniSONE 20 MG TAB PO SCH (12:54)
[2019-03-15] MEDS: Aspirin Chewable 81 MG TAB PO SCH (12:54)
[2019-03-15] MEDS: Famotidine 20 MG TAB PO SCH (12:54)
[2019-03-15] MEDS: Ferrous Sulfate 325 MG TAB PO SCH (12:54)
[2019-03-15] MEDS: Isosorbide Mononitrate (ER) 30 MG TAB PO SCH (12:54)
[2019-03-15] MEDS: Nicotine 21 MG PATCH TOP SCH (16:50)
[2019-03-15] MEDS: Cefepime 1 GM in Sodium Chloride 0.9% 100 ML IVPB SCH (16:50)
--- NOTE | 2019-03-15 17:05 | PDOC.HOSPP ---
- Subjective Encounter Date: 03/15/19 Encounter Time: 10:03 Subjective: 83 y/o female with COPD, diastolic HF, CAD, recently discharged from hospital following treatment of right pelvic fracture due to fall/syncope, now readmitted after she was found by home health nurse to be febrile and in pains with generalized weakness. Further evaluation revealed tachycardia, temp of 105 , hyponatremia Rola and others. UA is suggestive of UTI and CXR showed bilateral interstitial prominence suggestive of pneumonitis or edema. She was started on IVF and broad spectrum antibiotics.Developed confusion last night. Was started on ativan prior to onset of confusion. - Objective Vital Signs & Weight: Vital Signs (12 hours) Temp Pulse Resp BP Pulse Ox 03/15/19 11:20 91 L 03/15/19 11:15 97.4 F L 92 18 155/70 H 91 L 03/15/19 10:43 86 16 98 Weight Admit Weight 153 lb 8 oz Weight 164 lb 1 oz I&O: 03/14/19 03/15/19 03/16/19 06:59 06:59 06:59 Intake Total 2950 2240 350 Output Total 2650 1925 Balance 300 315 350 Result Diagrams: 03/15/19 03:51 03/15/19 03:51 Hospitalist ROS - Medication Medications: Active Medications Generic Name Dose Route Start Last Admin Trade Name Freq PRN Reason Stop Dose Admin Acetaminophen/Codeine Phosphate 1 tab 03/13/19 02:37 03/15/19 12:17 Tylenol #3 PO 1 tab Q8H PRN Administration Mild Pain (1-3) Albuterol/Ipratropium 3 ml 03/13/19 02:37 03/15/19 14:13 Duoneb NEB Not Given Q4VD-PF ALINE Aspirin 81 mg 03/13/19 09:00 03/15/19 12:54 Aspirin Chewable PO Not Given DAILY ALINE Benzonatate 100 mg 03/13/19 02:37 03/14/19 21:00 Tessalon PO 100 mg Q6H PRN Administration Cough Clopidogrel Bisulfate 75 mg 03/13/19 21:00 03/14/19 21:00 Plavix PO 75 mg HS ALINE Administration Famotidine 20 mg 03/13/19 09:00 03/15/19 12:54 Pepcid PO Not Given QAM ALINE Ferrous Sulfate 325 mg 03/13/19 08:00 11/18/19 12:54 Feosol PO Not Given QAM-WM [facility] Guaifenesin 200 mg 03/13/19 02:37 03/13/19 20:54 Robitussin Sf PO 200 mg Q4H PRN Administration Cough Levofloxacin 500 mg/ Device 100 mls @ 100 mls/hr 03/15/19 04:00 03/15/19 05: 02 IVPB 100 mls Q2DAYS@0400 ALINE Administration Sodium Bicarbonate 75 meq/ 1,075 mls @ 100 mls/hr 03/14/19 09:15 03/14/19 09: 38 Sodium Chloride IV 1,075 mls INF ALINE Administration Isosorbide Mononitrate 30 mg 03/13/19 09:00 03/15/19 12:54 Imdur Er PO Not Given DAILY [facility] Metoprolol Succinate 25 mg 03/13/19 09:00 03/15/19 12:55 Toprol Xl PO Not Given DAILY [facility] Mometasone Furoate/Formoterol Fumar 2 puff 03/13/19 06:30 03/15/19 10:43 Dulera 200 Mcg/5 Mcg Inhaler INH 2 puff BID-RT ALINE Administration Nicotine 21 mg 03/14/19 13:00 03/15/19 16:50 Nicoderm Patch TOP Not Given Q24HR [facility] Prednisone 40 mg 03/13/19 08:00 03/15/19 12:54 Prednisone PO Not Given QAM-WM [facility] Sodium Chloride 10 ml 03/13/19 09:00 03/15/19 12:55 Flush - Normal Saline IVF Not Given Q12HR [facility] - Exam General Appearance: awake alert General - other findings: confused ENT: normocephalic atraumatic, dry oral mucosa Neck: supple, symmetric, no JVD Heart: RRR Respiratory: no ronchi, normal chest expansion, no tachypnea Respiratory - other findings: fair air entry bilaterally Gastrointestinal: soft, non-tender, non-distended, normal bowel sounds Extremities: no cyanosis, no edema Neurological: cranial nerve grossly intact, no focal deficits Neurological - other findings: confused Psychiatric: oriented to person Hosp A/P (1) ROLA (acute kidney injury) Code(s): N17.9 - ACUTE KIDNEY FAILURE, UNSPECIFIED Status: Acute (2) Acute metabolic encephalopathy Code(s): G93.41 - METABOLIC ENCEPHALOPATHY Status: Acute (3) E coli bacteremia Code(s): R78.81 - BACTEREMIA Status: Acute (4) Sepsis Code(s): A41.9 - SEPSIS, UNSPECIFIED ORGANISM Status: Acute (5) COPD exacerbation Code(s): J44.1 - CHRONIC OBSTRUCTIVE PULMONARY DISEASE W (ACUTE) EXACERBATION Status: Acute (6) Pneumonia Code(s): J18.9 - PNEUMONIA, UNSPECIFIED ORGANISM Status: Acute (7) Elevated troponin Code(s): R79.89 - OTHER SPECIFIED ABNORMAL FINDINGS OF BLOOD CHEMISTRY Status : Acute (8) Metabolic acidosis Code(s): E87.2 - ACIDOSIS Status: Acute (9) Physical deconditioning Code(s): R53.81 - OTHER MALAISE Status: Acute (10) Hyponatremia Code(s): E87.1 - HYPO-OSMOLALITY AND HYPONATREMIA Status: Acute (11) CAD (coronary artery disease) Code(s): I25.10 - ATHSCL HEART DISEASE OF [place] CORONARY ARTERY W/O ANG PCTRS Status: Chronic (12) Chronic diastolic heart failure Code(s): I50.32 - CHRONIC DIASTOLIC (CONGESTIVE) HEART FAILURE Status: Chronic (13) Hypertension Code(s): I10 - ESSENTIAL (PRIMARY) HYPERTENSION Status: Chronic Qualifiers: (14) Protein-calorie malnutrition, moderate Code(s): E44.0 - MODERATE PROTEIN-CALORIE MALNUTRITION Status: Chronic (15) Tobacco abuse Code(s): Z72.0 - TOBACCO USE Status: Chronic (16) Escherichia coli urinary tract infection Code(s): N39.0 - URINARY TRACT INFECTION, SITE NOT SPECIFIED; B96.20 - UNSP ESCHERICHIA COLI THE CAUSE OF DISEASES CLASSD ELSWHR Status: Acute (17) Anxiety Code(s): F41.9 - ANXIETY DISORDER, UNSPECIFIED Status: Acute (18) Hypokalemia Code(s): E87.6 - HYPOKALEMIA Status: Acute - Plan Continue IVF therapy with sodium bicarb containing infusion DC ativan Continue levaquin and Dc cefepime in line with microbe susceptibility Supportive care to continue PT/Ot to continue Diet and liberal oral intake as tolerated.
[2019-03-15] MEDS: Acetaminophen 500 MG TAB PO PRN (18:30)
[2019-03-15] MEDS ORDERED: OLANZapine 10 MG VIAL IM SCH (19:00)
--- NOTE | 2019-03-15 19:07 | PRG ---
DATE OF SERVICE: 03/14/2019 SUBJECTIVE: The patient noted with the following vital signs. OBJECTIVE: VITAL SIGNS: Afebrile, temperature 97.4, pulse 85, respiratory rate of 18, O2 saturation of 94%, blood pressure 167/79. HEENT: Unremarkable. CARDIOVASCULAR SYSTEM: First and second heart sounds were heard. RESPIRATORY SYSTEM: Clear to auscultation. DIGESTIVE SYSTEM: Revealed a benign abdomen with positive bowel sounds. EXTREMITIES: No peripheral edema. SKIN: No new gross rash. LYMPHATICS: No peripheral lymphadenopathy. LABORATORY INVESTIGATION: Showed a sodium of 129, potassium 3.1, creatinine 3.47 with a BUN of 62. Iron studies showed iron of 12, iron saturation of 5 with ferritin of 197. IMPRESSION: 1. Hyponatremia. 2. 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 3. Metabolic acidosis. 4. Hypokalemia. 5. Iron deficiency anemia/anemia of chronic kidney disease. PLAN: 1. The patient already would have benefitted from parenteral IV iron infusion. However, given the current sepsis, we will probably hold off on this. 2. Replete potassium. 3. Continue bicarb infusion. 4. Further management to be dependent on the clinical course. Renally dose all medications. Job ID: [id number]
[2019-03-15] MEDS ORDERED: Sterile Water 10 ML VIAL FS SCH (19:15)
[2019-03-15] MEDS: Clopidogrel Bisulfate 75 MG TAB PO SCH (20:43)
[2019-03-15 22:49] LABS: Hemoglobin 7.8 g/dL (12.0-16.0); Lymphocytes 3 % (21-51); MDiff Complete? YES; Mean Corpuscular HGB CONC 32.3 g/dL (32.0-36.0); Mean Corpuscular Hemoglobin 26.8 pg (27.0-31.0); Mean Corpuscular Volume 83.1 fL (78.0-98.0); Mean Platelet Volume 9.3 fL (7.4-10.4); Monocytes 4 % (0-10); Neutrophil 93 % (42-75); Platelet Count 287 thou/uL (130-400); Platelet Morphology Comment Appears Adequate; RBC Distribution Width 17.9 % (11.5-14.5)
[2019-03-15 22:50] LABS: Lactic Acid 0.7 mmol/L (0.5-2.2)
[2019-03-15 22:54] LABS: Anion Gap 15 mmol/L (10-20); BUN (Urea Nitrogen) 68 mg/dL (9.8-20.1); Calc. Creatinine Clearance 15 mL/min (70-130); Calcium 7.5 mg/dL (7.8-10.44); Carbon Dioxide 19 mmol/L (23-31); Chloride 103 mmol/L (98-107); Estimated GFR-MDRD 13; Glucose 80 mg/dL (83-110); Magnesium 2.3 mg/dL (1.6-2.6); Potassium 4.2 mmol/L (3.5-5.1); Sodium 133 mmol/L (136-145)
[2019-03-16] MEDS: Acetaminophen 500 MG TAB PO PRN (06:14)
[2019-03-16 06:25] LABS: Albumin 2.9 g/dL (3.4-4.8); Anion Gap 15 mmol/L (10-20); BUN (Urea Nitrogen) 68 mg/dL (9.8-20.1); BUN/Creatinine Ratio 18.99; Calc. Creatinine Clearance 14 mL/min (70-130); Calcium 7.8 mg/dL (7.8-10.44); Carbon Dioxide 19 mmol/L (23-31); Chloride 105 mmol/L (98-107); Estimated GFR-MDRD 12; Glucose 70 mg/dL (83-110); Phosphorus 5.1 mg/dL (2.3-4.7); Potassium 4.1 mmol/L (3.5-5.1); Sodium 135 mmol/L (136-145)
[2019-03-16 06:39] LABS: Band 5 % (5-11); Eosinophils 1 % (0-10); Hemoglobin 8.2 g/dL (12.0-16.0); Lymphocytes 4 % (21-51); MDiff Complete? YES; Mean Corpuscular HGB CONC 32.8 g/dL (32.0-36.0); Mean Corpuscular Hemoglobin 26.5 pg (27.0-31.0); Mean Platelet Volume 8.7 fL (7.4-10.4); Monocytes 4 % (0-10); Neutrophil 86 % (42-75); Platelet Count 350 thou/uL (130-400); Platelet Morphology Comment Appears Adequate; RBC Distribution Width 17.4 % (11.5-14.5); Red Blood Cell (RBC) Count 3.07 mill/uL (4.20-5.40)
[2019-03-16] MEDS: Mometasone/Formoterol 120 PUFF INHALER INH SCH ×2 (07:11→19:58)
[2019-03-16] MEDS: Aspirin Chewable 81 MG TAB PO SCH (08:24)
[2019-03-16] MEDS: Isosorbide Mononitrate (ER) 30 MG TAB PO SCH (08:25)
[2019-03-16] MEDS: Ferrous Sulfate 325 MG TAB PO SCH (08:25)
[2019-03-16] MEDS: Famotidine 20 MG TAB PO SCH (08:26)
[2019-03-16] MEDS: predniSONE 20 MG TAB PO SCH (08:26)
--- NOTE | 2019-03-16 08:38 | PRG ---
DATE OF SERVICE: 03/15/2019 SUBJECTIVE: The patient was seen and examined. Noted with the following vital signs. OBJECTIVE: VITAL SIGNS: Afebrile, temperature 97.4, pulse 92, respiratory rate of 18, O2 saturations are 91%, and blood pressure 155/70. HEENT: Unremarkable. CARDIOVASCULAR SYSTEM: First and second heart sounds were heard. RESPIRATORY SYSTEM: Clear to auscultation. DIGESTIVE SYSTEM: Revealed a benign abdomen. Positive bowel sounds. EXTREMITIES: No peripheral edema. SKIN: No new gross rash. LYMPHATICS: No peripheral lymphadenopathy. LABORATORY INVESTIGATION: Showed a hemoglobin of 7.9. Chemistry showed a creatinine of 3.48 with BUN of 62, bicarb of 17, sodium of 129, phosphorus of 6.0 with a calcium of 7.7. IMPRESSION: 1. Severe acute on chronic kidney disease. 2. possibly related to narcotic dependence and urinary tract infection. 3. Metabolic acidosis. 4. Hyponatremia. PLAN: 1. We will recommend avoiding other sedative medications in this patient at this point. 2. Renally dose all medications. 3. The patient likely to benefit more from a medical the current room, where the patient refused to go back to. 4. Further management will be dependent on the clinical course. Job ID: [id number]
--- NOTE | 2019-03-16 09:42 | RAD ---
XR Chest 1 View Portable History: Shortness of breath. Fever. Comparison: Chest radiograph March 12, 2019. Findings: Lungs are hyperinflated. Mild improvement of interstitial markings. Moderate emphysema. Resection of the left distal clavicle. Right distal clavicular osteolysis. Mild blunting left lateral calcific sulcus. Heart size is enlarged. Impression: Mild improvement of pulmonary edema. Cardiomegaly with emphysema persists.
--- NOTE | 2019-03-16 10:46 | PQF ---
[employer] Technician Crystal Reports Winform LORE Couch JOE HOLLAND MD [id number] [id number] CLINICAL DOCUMENTATION IMPROVEMENT CLARIFICATION FORM: ICD-10 Updated PLEASE DO AN ADDENDUM TO THE PROGRESS NOTE WITH ANY DOCUMENTATION UPDATES OR ADDITIONS AND CARRY THROUGH TO DC SUMMARY. THANK YOU. DATE: 03/16/19 ATTN: Dr. Holland Please exercise your independent, professional judgment in responding to the clarification form. Clinical indicators are provided on the bottom of this form for your review Please check appropriate box(s): [ ] Encephalopathy: Type: [ ] Acute [ ] Subacute [ ] Chronic Etiology: [ ] Metabolic [ ] Toxic [ ] Septic [ ] Unspecified [ ] in the setting of underlying dementia [ ] Other (please specify) [ ] Transient Alteration of Awareness [ ] Other diagnosis [ ] Unable to determine In addition, please specify: Present on Admission (POA): [ ] Yes [ ] No [ ] Unable to determine For continuity of documentation, please document condition throughout progress notes and discharge summary. Thank You. CLINICAL INDICATORS - SIGNS / SYMPTOMS / LABS / RESULTS AND LOCATION IN EMR Altered mental status--> 03/15 (Cristobal): "0715 - Pt bed alarm went off. Pt found with [place] catheter and IV pulled out, getting out of bed, disoriented and confused. Pt assisted to restroom, then refuses to get back in bed. Pt assisted to walk down the lycnh and sit in a chair. Still confused, oriented only to name, refuses assesment, vital signs, and medications. Pt states "you are trying to poison me and hold me here against my will." Lab 03/13 NA 131, Bun 52, creat 3.28, GFR 14 to 03/16 Na 135, bun 68, creat 3.58 , GFR 12 Lab 03/13 UA large leuk est, wbc greater than 50 03/14 wbc 13.2, 03/13 procal 42.4 per lab RISK FACTORS / RESULTS AND LOCATION IN EMR Infectious process--> 03/13 (Hector): "sepsis d/t pneumonia; bilateral" 03/13 ( Ezeanuna): "UTI" 03/13(Obi): "LETICIA, hyponatremia, metabolic acidosis" TREATMENTS / RESULTS AND LOCATION IN EMR Sitter 03/15 orders IV antibiotics--> Levaquin 500mg IV 03/13 x1; cefepime 2gm IV 03/13 x1; 03/14- 03/15 cefepime 1gm iv; levaquin 500mg IV 03/15 per orders IV fluids--> 03/13 Ns at 50 changed to Bicarb drip at 100 03/13 to 03/14 per orders MTDD
--- NOTE | 2019-03-16 12:15 | PRG ---
DATE OF SERVICE: 03/16/2019 SUBJECTIVE: The patient is seen and examined today, very restless. Complained of pain here and there, not making sense OBJECTIVE: VITAL SIGNS: Noted with the following vital signs; afebrile, temperature 99.5, pulse 104, respiratory rate of 18, O2 saturations of 92%, with blood pressure of 115/57. HEENT: Remarkable for distended neck veins bilaterally. CARDIOVASCULAR SYSTEM: First and second heart sounds. RESPIRATORY SYSTEM: Revealed diminished breath sounds of COPD. DIGESTIVE SYSTEM: Revealed a benign abdomen. Positive bowel sounds. EXTREMITIES: No peripheral edema. SKIN: Other than skin being dry, no new gross rash. LABORATORY INVESTIGATIONS: Showed the creatinine has gone up to 3.58, BUN of 68, and bicarb of 19, with a phosphorus of 5.1, and albumin 2.9. IMPRESSION: 1. Restlessness/hyperactive delirium, query cause probably related to the following potential etiologies. a. Withdrawal effect of narcotics plus or minus Neurontin. b. Cannot completely rule out carbon dioxide narcosis in the context of COPD exacerbation. c. Pericardial effusion given tachycardia with significant engorged neck veins. 2. Worsening acute tubular necrosis likely initiated by cytokine-mediated injury, the patient is not actively getting parenteral antibiotics treatment for urinary tract infection and has not really received adequate amount of hydration given the fact that this patient has been pulling off all of IV. 3. Hyponatremia, which seems to have improved, with sodium of 135. 4. Metabolic acidosis in the context of reduced GFR. 5. Hyperphosphatemia. PLAN: 1. The patient's clinical condition seems to be somewhat worse and we will recommend transfer of this patient to a better monitored environment. We will recommend IMCU. 2. Cardiogram to rule out significant pericardial effusion given the chest x-ray that showed clear lungs with enlarged heart. 3. We will continue current renal supportive measures. There is no indication at this point for emergent hemodialysis. 4. Further management will be dependent on the clinical course. Trial of low-dose narcotics will be carried out to see if patient is also suffering from narcotic withdrawal. 5. Further management will be dependent on the clinical course. Condition of the patient at this time of dictation is guarded. Job ID: [id number]
--- NOTE | 2019-03-16 13:14 | PDOC.PULCN ---
Pulmonology Consult: HPI - Date of Consult Date: 03/16/19 Time: 13:00 - History of Present Illness HPI: LORE CARTY is a 83 year-old F that was admitted 03/12/19 for sepsis 2/2 pneumonia. She was discharged 03/02 after a fall and R pelvic fracture. She presented with generalized weakness, fever. She has been treated for UTI and pneumonia. Hospital course has been complicated by worsening confusion and was transferred to [facility] today. Sitter present in room. She is combative, unable to maintain IV access and patient self removed suh yesterday per nursing staff. She is restless in bed and answers questions inappropriately. Pulmonology Consult: ROS - Review of Systems All systems: reviewed and no additional remarkable complaints except as stated ( pelvic pain) Pulmonology Consult: [facility] Source: other (chart review-unable to obtain hx from patient) Past Medical History: Chronic diastolic HF (EF 60-65%), HTN, COPD, CAD s/p PCI, chronic iron deficiency anemia, recent fall with pubic fracture - Family History Family history: reviewed and not pertinent - Social History Smoking Status: Current every day smoker, Smokes 11 or more cig/day Alcohol Use: none Drug Use History: none Living Situation: independent (son lives next door. Has home health services) Pulmonology Consult: Meds - Medications MAR Reviewed: Yes Medications: Current Medications Acetaminophen (Tylenol) 1,000 mg PO Q6H PRN PRN Reason: Mild Pain (1-3) Last Admin: 03/16/19 06:14 Dose: 1,000 mg Acetaminophen/Codeine Phosphate (Tylenol #3) 1 tab PO Q8H PRN PRN Reason: Mild Pain (1-3) Last Admin: 03/15/19 12:17 Dose: 1 tab Albuterol/Ipratropium (Duoneb) 3 ml NEB [id number] ALINE Last Admin: 03/16/19 12:51 Dose: Not Given Aspirin (Aspirin Chewable) [address] [facility] Last Admin: 03/16/19 08:24 Dose: 81 mg Benzonatate (Tessalon) 100 mg PO Q6H PRN PRN Reason: Cough Last Admin: 03/14/19 21:00 Dose: 100 mg Clopidogrel Bisulfate (Plavix) [address] [facility] Last Admin: 03/15/19 20:43 Dose: 75 mg Famotidine (Pepcid) [address] [facility] Last Admin: 03/16/19 08:26 Dose: 20 mg Ferrous Sulfate (Feosol) 325 mg PO QA-[facility] Last Admin: 03/16/19 08:25 Dose: 325 mg Guaifenesin (Robitussin Sf) 200 mg PO Q4H PRN PRN Reason: Cough Last Admin: 03/13/19 20:54 Dose: 200 mg Hydralazine HCl (Apresoline) 10 mg SLOW IVP Q4H PRN PRN Reason: SBP > 180 and HR < 70 Levofloxacin 500 mg/ Device 100 mls @ 100 mls/hr IVPB Q2DAYS@0400 [facility] Last Admin: 03/15/19 05:02 Dose: 100 mls Sodium Bicarbonate 75 meq/ (Sodium Chloride) 1,075 mls @ 100 mls/hr IV INF [facility] Last Admin: 03/14/19 09:38 Dose: 1,075 mls Isosorbide Mononitrate (Imdur Er) [address] [facility] Last Admin: 03/16/19 08:25 Dose: 30 mg Metoprolol Succinate (Toprol Xl) [address] [facility] Last Admin: 03/16/19 08:25 Dose: 25 mg Mometasone Furoate/Formoterol Fumar (Dulera 200 Mcg/5 Mcg Inhaler) 2 puff INH BID-RT [facility] Last Admin: 03/16/19 07:11 Dose: Not Given Nicotine (Nicoderm Patch) [address] [facility] Last Admin: 03/15/19 16:50 Dose: Not Given Ondansetron HCl (Zofran Odt) 4 mg PO Q6H PRN PRN Reason: Nausea/Vomiting Ondansetron HCl (Zofran) 4 mg IVP Q6H PRN PRN Reason: Nausea/Vomiting Prednisone (Prednisone) 40 mg PO [facility] Last Admin: 03/16/19 08:26 Dose: 40 mg Senna/Docusate Sodium (Senokot S) 2 tab PO BIDPRN PRN PRN Reason: Constipation Sodium Chloride (Flush - Normal Saline) [address] [facility] Last Admin: 03/16/19 08:27 Dose: Not Given Sodium Chloride (Flush - Normal Saline) 10 ml IVF PRN PRN PRN Reason: Saline Flush - Allergies Allergies/Adverse Reactions: Allergies Allergy/AdvReac Type Severity Reaction Status Date / Time alendronate sodium Allergy joint pains Verified 03/13/19 06:06 citalopram [From Celexa] Allergy Verified 03/13/19 06:06 Sulfa (Sulfonamide Allergy Verified 03/13/19 06:06 Antibiotics) tramadol Allergy headaches Verified 03/13/19 06:06 Pulmonology Consult: PE - Physical Exam Deviation from normal: disoriented, moving Deviation from normal: MM dry Cardiovascular: RRR Respiratory: clear to auscultation anteriorly, decreased breath sounds Gastrointestinal: soft, non-tender, positive bowel sounds Musculoskeletal: no edema Neurological: moves all 4 limbs Deviation from normal: agitated, oriented to person only Skin: normal turgor Pulmonology Consult: Results - Labs Result Diagrams: 03/18/19 05:19 03/18/19 05:19 Pulmonology Consult: A/P - Problem (1) Acute metabolic encephalopathy Current Visit: Yes Code(s): G93.41 - METABOLIC ENCEPHALOPATHY Status: Acute (2) E coli bacteremia Current Visit: Yes Code(s): R78.81 - BACTEREMIA Status: Acute (3) Escherichia coli urinary tract infection Current Visit: Yes Code(s): N39.0 - URINARY TRACT INFECTION, SITE NOT SPECIFIED; B96.20 - UNSP ESCHERICHIA COLI THE CAUSE OF DISEASES CLASSD ELSWHR Status: Acute (4) Physical deconditioning Current Visit: Yes Code(s): R53.81 - OTHER MALAISE Status: Chronic (5) CAD (coronary artery disease) Current Visit: Yes Code(s): I25.10 - ATHSCL HEART DISEASE OF [place] CORONARY ARTERY W/O ANG PCTRS Status: Chronic (6) Chronic diastolic heart failure Current Visit: Yes Code(s): I50.32 - CHRONIC DIASTOLIC (CONGESTIVE) HEART FAILURE Status: Chronic (7) Iron deficiency anemia Current Visit: Yes Code(s): D50.9 - IRON DEFICIENCY ANEMIA, UNSPECIFIED Status: Chronic (8) Tobacco abuse Current Visit: Yes Code(s): Z72.0 - TOBACCO USE Status: Chronic - Time Time: 50% of the time was spent in coordination of care (as documented) at patient's floor/unit and/or counseling patient. Time with Patient: greater than 50 minutes - Plan Plan: Delirium - unable to maintain IV access, sitter present in room - has received ativan this hospitalization as well as zyprexa last night Sepsis 2/2 e coli UTI - Blood cultures in outside ED 1 of 2 positive for e coli and strep - Ucx pansensitive e coli UTI - Received vanc/zosyn in outside ED, 1 dose of cefepime, now currently only on levaquin (received 1 dose yesterday). - Not getting IVF due to no access Leukocytosis - WBC uptrending since admission, 10.7->14, neutrophil predominant. - procalcitonin was 42, will repeat today LETICIA on chronic CKD3 - Cr of 3.58 with baseline GFR in the 40s - Nephrology consulted, recommend supportive measures COPD - on duoneb q4h aline in addition to dulera BID - home medication of prednisone 5mg, will Chronic iron deficiency anemia - s/p 1 u prbc this hospitalization with fecal occult blood neg - Hgb stable at 8.2, on iron supplement Physical deconditioning - PT/OT consulted CAD - On ASA and plavix, imdur HTN - metoprolol HFpEF - home medications continued Tobacco abuse Hx recent fall with pubic fracture Dr. Stoddard Addendum: Pt seen and examined. Data independently reviewed by me and confirmed. Pt with delirium that is most likely from underlying infection or medications. Would minimize steroids. Repeat the procalcitonin level.
[2019-03-16] MEDS: Nicotine 21 MG PATCH TOP SCH (14:36)
[2019-03-16] MEDS: Acetaminophen/Codeine 30-300mg Tablet PO PRN (16:35)
--- NOTE | 2019-03-16 17:59 | PDOC.HOSPP ---
- Subjective Encounter Date: 03/16/19 Encounter Time: 10:00 non-verbal Subjective: Patient seen and examined for Sepsis. Confused. No IV access. - Objective Vital Signs & Weight: Vital Signs (12 hours) Temp Pulse Resp BP Pulse Ox 03/16/19 16:15 97.7 F 03/16/19 12:00 97.5 F L 03/16/19 08:00 99.5 F 104 H 18 115/57 L 92 L 03/16/19 07:06 90 24 H 93 L 03/16/19 06:11 104 H 22 H 91 L Weight Admit Weight 153 lb 8 oz Weight 164 lb 1 oz Most Recent Monitor Data Heart Rate from ECG 85 NIBP 160/65 NIBP BP-Mean 96 Respiration from ECG 15 SpO2 85 I&O: 03/15/19 03/16/19 03/17/19 06:59 06:59 06:59 Intake Total 2240 940 Output Total 1925 Balance 315 940 Result Diagrams: 03/16/19 05:19 03/16/19 05:19 Additional Labs: Microbiology 03/13/19 17:46 Stool - Formed Stool Occult Blood (JUSTIN) - Final 03/13/19 05:40 Urine suh catheter Urine Culture - Final Escherichia coli 03/12/19 16:10 Nasal swab Influenza Types A,B Direct EIA - Final 03/12/19 16:15 Venous blood - Left Arm Blood Culture - Preliminary NO GROWTH AT 48 HOURS 03/12/19 16:10 Venous blood - Right Arm Blood Culture - Preliminary Escherichia coli Streptococcus species Laboratory Tests 03/01/19 03/12/19 03/13/19 04:29 16:10 02:57 Creatinine 1.18 H 2.79 H 3.28 H Procalcitonin Urine WBC Urine Bacteria 03/13/19 03/14/19 03/15/19 05:40 03:50 03:51 Creatinine 3.47 H 3.48 H Procalcitonin Urine WBC Greater than 50 A Urine Bacteria 2+ A 03/15/19 03/16/19 03/16/19 22:24 05:19 05:19 Creatinine 3.46 H 3.58 H Procalcitonin 12.15 Urine WBC Urine Bacteria Radiology Reviewed by me: Yes (CXR - No infiltrate) Hospitalist ROS - Review of Systems ROS unobtainable: due to mental status - Medication Medications: Active Medications Generic Name Dose Route Start Last Admin Trade Name Freq PRN Reason Stop Dose Admin Acetaminophen 1,000 mg 03/13/19 02:37 03/16/19 06:14 Tylenol PO 1,000 mg Q6H PRN Administration Mild Pain (1-3) Acetaminophen/Codeine Phosphate 1 tab 03/13/19 02:37 03/16/19 16:35 Tylenol #3 PO 1 tab Q8H PRN Administration Mild Pain (1-3) Albuterol/Ipratropium 3 ml 03/13/19 02:37 03/16/19 14:10 Duoneb NEB Not Given [id number] ALINE Aspirin 81 mg 03/13/19 09:00 03/16/19 08:24 Aspirin Chewable PO 81 mg DAILY ALINE Administration Benzonatate 100 mg 03/13/19 02:37 03/14/19 21:00 Tessalon PO 100 mg Q6H PRN Administration Cough Clopidogrel Bisulfate 75 mg 03/13/19 21:00 03/15/19 20:43 Plavix PO 75 mg HS ALINE Administration Famotidine 20 mg 03/13/19 09:00 03/16/19 08:26 Pepcid PO 20 mg QAM ALINE Administration Ferrous Sulfate 325 mg 03/13/19 08:00 03/16/19 08:25 Feosol PO 325 mg QAM-WM ALINE Administration Guaifenesin 200 mg 03/13/19 02:37 03/13/19 20:54 Robitussin Sf PO 200 mg Q4H PRN Administration Cough Levofloxacin 500 mg/ Device 100 mls @ 100 mls/hr 03/15/19 04:00 03/15/19 05: 02 IVPB 100 mls Q2DAYS@0400 ALINE Administration Sodium Bicarbonate 75 meq/ 1,075 mls @ 100 mls/hr 03/14/19 09:15 03/14/19 09: 38 Sodium Chloride IV 1,075 mls INF ALINE Administration Isosorbide Mononitrate 30 mg 03/13/19 09:00 03/16/19 08:25 Imdur Er PO 30 mg DAILY ALINE Administration Metoprolol Succinate 25 mg 03/13/19 09:00 03/16/19 08:25 Toprol Xl PO 25 mg DAILY ALINE Administration Mometasone Furoate/Formoterol Fumar 2 puff 03/13/19 06:30 11/19/19 07:11 Dulera 200 Mcg/5 Mcg Inhaler INH Not Given BID-RT ALINE Nicotine 21 mg 03/14/19 13:00 03/16/19 14:36 Nicoderm Patch TOP Not Given Q24HR [facility] Sodium Chloride 10 ml 03/13/19 09:00 03/16/19 08:27 Flush - Normal Saline IVF Not Given Q12HR ALINE - Exam General - other findings: Confused Heart: RRR, no gallops, no rubs, normal peripheral pulses Respiratory: CTAB, no rales, normal chest expansion, rhonchi Gastrointestinal: soft, non-tender Extremities: no edema Neurological: no new deficit (moving all 4 ext) Psychiatric: not oriented Hosp A/P - Plan DVT proph w/SCDs Severe Sepsis due to E coli UTI Toxic Metabolic Encephalopathy Bacteremia (Strep/Ecoli) LETICIA on CKD 3 CAD Chronic diastolic HF Recent hospitalization for fall/Pevic fracture Type 2 AR PLAN: Transfer to [facility] Try to obtain IV access IV Meropenem ID consult d/w Dr Ellis AM labs
[2019-03-16] MEDS ORDERED: Lorazepam 0.5 MG TAB PO PRN (18:11)
[2019-03-16] MEDS ORDERED: Cefdinir 300 MG CAP PO SCH (18:15)
[2019-03-16] MEDS: MEROPENEM 1 GM/50 ML 1 GM in Premix Bag 1 BAG IVPB SCH (20:14)
[2019-03-16] MEDS: Clopidogrel Bisulfate 75 MG TAB PO SCH (20:18)
[2019-03-16] MEDS ORDERED: Sterile Water 10 ML VIAL FS PRN (23:11)
[2019-03-16] MEDS ORDERED: Ziprasidone 20 MG VIAL IM SCH (23:15)
[2019-03-16] MEDS ORDERED: Ziprasidone 20 MG VIAL ONE (23:28)
[2019-03-16] MEDS: Lorazepam 2 MG/ML VIAL SLOW IVP PRN (23:35)
[2019-03-17] MEDS: MEROPENEM 1 GM/50 ML 1 GM in Premix Bag 1 BAG IVPB SCH ×2 (01:53→09:02)
[2019-03-17] MEDS: Lorazepam 2 MG/ML VIAL SLOW IVP PRN ×3 (04:06→13:08)
[2019-03-17 04:31] LABS: ALT (SGPT) 23 U/L (8-55); AST (SGOT) 28 U/L (5-34); Albumin 2.8 g/dL (3.4-4.8); Alkaline Phosphatase 66 U/L (40-110); Anion Gap 23 mmol/L (10-20); BUN (Urea Nitrogen) 80 mg/dL (9.8-20.1); Bilirubin, Total 0.4 mg/dL (0.2-1.2); Calc. Creatinine Clearance 15 mL/min (70-130); Calcium 8.1 mg/dL (7.8-10.44); Carbon Dioxide 12 mmol/L (23-31); Chloride 110 mmol/L (98-107); Estimated GFR-MDRD 13; Glucose 78 mg/dL (83-110); Magnesium 2.5 mg/dL (1.6-2.6); Potassium 4.1 mmol/L (3.5-5.1); Protein, Total 5.8 g/dL (6.0-8.3); Sodium 141 mmol/L (136-145)
[2019-03-17 04:53] LABS: #Lymphocytes 0.4 thou/uL (1.20-3.40); #Monocytes 1.2 thou/uL (0.11-0.59); #Neutrophils 13.6 thou/uL (1.40-6.50); %Eosinophils 0.1 % (0.0-10.0); %Lymphocytes 2.6 % (21.0-51.0); %Monocytes 7.7 % (0.0-10.0); %Neutrophils 89.6 % (42.0-75.0); Band 1 % (5-11); Hemoglobin 7.9 g/dL (12.0-16.0); Hypochromia SLIGHT = 6-15 cells (100X) (0-5/hpf); Lymphocytes 1 % (21-51); MDiff Complete? YES; Mean Corpuscular HGB CONC 31.8 g/dL (32.0-36.0); Mean Corpuscular Hemoglobin 26.4 pg (27.0-31.0); Mean Corpuscular Volume 82.9 fL (78.0-98.0); Mean Platelet Volume 8.6 fL (7.4-10.4); Monocytes 4 % (0-10); Neutrophil 94 % (42-75); Platelet Count 324 thou/uL (130-400); Platelet Morphology Comment Appears Adequate; RBC Distribution Width 17.8 % (11.5-14.5); Red Blood Cell (RBC) Count 2.99 mill/uL (4.20-5.40); White Blood Cell (WBC) Count 15.2 thou/uL (4.8-10.8)
[2019-03-17] MEDS: Mometasone/Formoterol 120 PUFF INHALER INH SCH ×2 (07:19→18:55)
[2019-03-17] MEDS: predniSONE 5 MG TAB PO SCH (07:41)
[2019-03-17] MEDS: Ferrous Sulfate 325 MG TAB PO SCH (07:41)
[2019-03-17] MEDS: Aspirin Chewable 81 MG TAB PO SCH (07:42)
[2019-03-17] MEDS: Famotidine 20 MG TAB PO SCH (07:42)
[2019-03-17] MEDS: Isosorbide Mononitrate (ER) 30 MG TAB PO SCH (07:42)
[2019-03-17] MEDS ORDERED: Cefdinir 300 MG CAP PO SCH (09:00)
[2019-03-17] MEDS: Valproate Sodium 250 MG in Sodium Chloride 0.9% 100 ML IVPB SCH ×2 (09:02→21:00)
--- NOTE | 2019-03-17 09:25 | PRG ---
DATE OF SERVICE: 03/17/2019 SUBJECTIVE: This patient remains grossly encephalopathic. She was given some Geodon and Ativan last night. She is sleeping, but still flailing in the bed. OBJECTIVE: VITAL SIGNS: Temperature is 98, pulse 119, blood pressure 170/90, O2 saturation ranging from the mid 80s to low 90s. LUNGS: My limited exam showed fairly clear lung prado. CARDIAC: Slightly tachycardic. ABDOMEN: Soft. LABORATORY DATA: Sodium 141, potassium 4.1, chloride 110, CO2 of 12, BUN 80, creatinine 3.4, glucose 78, anion gap is 23. White blood cell count 15.2, hematocrit 24.8, and platelet count 324. ASSESSMENT: 1. Severe metabolic acidosis. 2. Gross encephalopathy. 3. Sepsis syndrome. 4. Acute renal failure. PLAN: 1. The patient is receiving bicarbonate infusion. The amount of bicarbonate may need to be increased. 2. I will give her some Depakote IV and see if that will help with the manic type symptoms. 3. Continue antibiotics. Job ID: [id number]
[2019-03-17] MEDS: Sodium Bicarbonate 150 MEQ in Dextrose 5% in Water 1,000 ML IV SCH ×2 (11:52→23:22)
--- NOTE | 2019-03-17 12:53 | ULT ---
Exam: Bilateral renal ultrasound HISTORY: Acute kidney insufficiency. Evaluate for hydronephrosis. COMPARISON: None FINDINGS: Right kidney: Limited evaluate the cortex. Anechoic focus in the upper pole the right kidney with thr ough transmission measuring 2.8 x 1.8 x 1.7 cm, compatible with a cyst. No hydronephrosis. Right kidney measurements: 11.1 x 6.2 x 5.2 cm. Left kidney: Normal cortical echotexture. No hydronephrosis Left kidney measurements 1.4 x 6.0 x 11.1 cm. Urinary bladder: Normal bladder mucosa Prevoid volume is 274 mL. IMPRESSION: No hydronephrosis.
[2019-03-17 13:27] LABS: Actual Bicarbonate (HCO3a) 19.2 mEq/L (22-28); Base Excess (BEa) -5.2 mEq/L (-2.0 to +3.0); Carboxyhemoglobin (COHb) 1.5 gm% (0.0-3.0); Hemoglobin (Hb) 8.9 g/dL (12.0-16.0); pH, Arterial 7.38 (7.35-7.45)
[2019-03-17 13:29] LABS: O2 Tension (PaO2) 57.4 mmHg (> 60.0); Puncture Site RBA
--- NOTE | 2019-03-17 13:41 | PDOC.PALCO ---
Palliative Care Consult - Consult Details Requesting Physician: Dr Holland Reason for Consult: goals of care, advance directives assistance, family support Family Members Present: None - Left message with patient son - Pertinent HPI Complicated hospital course. Patient was discharged 03/02 s/p pelvic fracture. Presented to the emergency room with increase in confusion and fever, weakness. At initial presentation to the emergency room patient states she had been ambulating with a rolling walker, but noted an increase in weakness, fatigue and onset of chills. Admitted for sepsis and pneumonia. Continued decline and transitioned to IMCU as she required a higher level of care. - Pertinent PMH s/p pubic fracture, CAD, Diastolic heart failure, PVD, HTN, Chronic anemia - Social History Smoking Status: Current every day smoker Smoking: greater than 1 pack/day Alcohol Use: none Drug Use History: other (Report of excessive tylenol with codine use) Living Situation: other (Lives "next" to her son) - Medications MAR Reviewed: Yes - Allergies Allergies/Adverse Reactions: Allergies Allergy/AdvReac Type Severity Reaction Status Date / Time alendronate sodium Allergy joint pains Verified 03/13/19 06:06 citalopram [From Celexa] Allergy Verified 03/13/19 06:06 Sulfa (Sulfonamide Allergy Verified 03/13/19 06:06 Antibiotics) tramadol Allergy headaches Verified 03/13/19 06:06 - Subjective Lethargic, does not open eyes, agitated. - ROS Constitutional: distress, lethargic ENT: dry mouth Respiratory: shortness of breath - Objective Vital Signs: Vital Signs - Most Recent Temp Pulse Resp BP Pulse Ox 98.3 F 84 18 115/57 L 94 L 03/17/19 11:28 03/16/19 20:00 03/16/19 20:00 03/16/19 08:00 03/17/19 08:00 Palliative Performance Scale: 30 - Physical Exam Constitutional: confusion, encephalitic, ill appearing HEENT: moist MMs, sclera anicteric Respiratory: accessory muscle use, labored respirations Cardiovascular: RRR Gastrointestinal: soft, non-tender, positive bowel sounds, incontinent Musculoskeletal: pulses present, muscle wasting Neurology: moves all 4 limbs Skin: cap refill <2 seconds, bruising, fragile, friable Deviation from normal: agitated, unable to determine orientation - Problem List (1) Palliative care encounter Code(s): Z51.5 - ENCOUNTER FOR PALLIATIVE CARE Current Visit: Yes Status: Acute (2) Acute metabolic encephalopathy Code(s): G93.41 - METABOLIC ENCEPHALOPATHY Current Visit: Yes Status: Acute (3) Anxiety Code(s): F41.9 - ANXIETY DISORDER, UNSPECIFIED Current Visit: Yes Status: Acute (4) COPD exacerbation Code(s): J44.1 - CHRONIC OBSTRUCTIVE PULMONARY DISEASE W (ACUTE) EXACERBATION Current Visit: Yes Status: Acute (5) Chronic diastolic heart failure Code(s): I50.32 - CHRONIC DIASTOLIC (CONGESTIVE) HEART FAILURE Current Visit: Yes Status: Chronic (6) Physical deconditioning Code(s): R53.81 - OTHER MALAISE Current Visit: Yes Status: Chronic (7) Tobacco abuse Code(s): Z72.0 - TOBACCO USE Current Visit: Yes Status: Chronic - Plan/Recommendations Plan: Sitter at bedside. Attempted to visit with son who was going to come this afternoon. Called and left voice mail requesting he call Palliative Care when he arrives to discuss goals of care for his mother. Katlin Raymond catheterization laboratory technician also involved with patient care, refer to notes under note section. RN caring for patient to call if son arrives to discuss goals of care. [40] minutes spent on this encounter with >50% of the time in counseling and coordination of care. Thank you for this very appropriate consult.
[2019-03-17] MEDS ORDERED: Fentanyl 100 MCG/2 ML VIAL ONE (16:17)
[2019-03-17] MEDS ORDERED: Fentanyl 100 MCG/2 ML VIAL SLOW IVP SCH (16:30)
[2019-03-17] MEDS ORDERED: fentaNYL 50 mcg/hour Patch TD SCH (16:30)
[2019-03-17] MEDS: cefTRIAXone\\ROCEPHIN 2 GM in Sodium Chloride 0.9% 100 ML IVPB SCH (17:41)
--- NOTE | 2019-03-17 18:35 | PRG ---
DATE OF SERVICE: 03/17/2019 SUBJECTIVE: The patient is seen and examined, very agitated, thrashing all over the place. OBJECTIVE: VITAL SIGNS: Noted with the following vital signs; afebrile, temperature 99, blood pressure 156/88, pulse of 114 to 120. HEENT: Revealed dry oral mucosa. NECK: Supple. CARDIOVASCULAR SYSTEM: First and second heart sounds heard, tachycardic. RESPIRATORY SYSTEM: Clear to auscultation. DIGESTIVE SYSTEM: Revealed a benign abdomen. EXTREMITIES: Showed no peripheral edema. SKIN: Showed several areas of bruises from thrashing around. NEUROLOGIC: Revealed the patient is very agitated, but no lateralizing sign. LABORATORY INVESTIGATION: Significant for hemoglobin 7.9. Chemistry showed a bicarb of 12, BUN of 80, creatinine of 3.46. IMPRESSION: 1. Mental status change/agitation, likely in the context of narcotic withdrawal. 2. Acute on chronic kidney disease. 3. Worsening metabolic acidosis. PLAN: 1. We will resume narcotic in this patient. We will start with fentanyl p.r.n. and a fentanyl patch. 2. I do agree with increasing bicarb supplementation in this patient. 3. Renally dose all medications and avoid potentially nephrotoxic agents. 4. Further management to be dependent on the clinical course. Job ID: [id number]
--- NOTE | 2019-03-17 20:38 | PDOC.HOSPP ---
- Subjective Encounter Date: 03/17/19 Encounter Time: 12:37 Subjective: 83 y/o female with COPD, diastolic HF, CAD, recently discharged from hospital following treatment of right pelvic fracture due to fall/syncope, now readmitted after she was found by home health nurse to be febrile and in pains with generalized weakness. Further evaluation revealed tachycardia, temp of 105 , hyponatremia Rola and others. UA is suggestive of UTI and CXR showed bilateral interstitial prominence suggestive of pneumonitis or edema. She was started on IVF and broad spectrum antibiotics. Later developed confusion with agitation and restlessness which worsened and she was transfered to [facility]. - Objective Vital Signs & Weight: Vital Signs (12 hours) Temp Pulse Resp 03/17/19 20:00 98.4 F 03/17/19 15:18 99.0 F 03/17/19 14:32 102 H 30 H 03/17/19 11:28 98.3 F Weight Admit Weight 153 lb 8 oz Weight 164 lb 1 oz Most Recent Monitor Data Heart Rate from ECG 116 NIBP 156/88 NIBP BP-Mean 110 Respiration from ECG 26 SpO2 95 I&O: 03/16/19 03/17/19 03/18/19 06:59 06:59 06:59 Intake Total 543 895 3941 Balance 425 275 7802 Result Diagrams: 03/17/19 03:54 03/17/19 03:54 Hospitalist ROS - Medication Medications: Active Medications Generic Name Dose Route Start Last Admin Trade Name Freq PRN Reason Stop Dose Admin Acetaminophen 1,000 mg 03/13/19 02:37 03/16/19 06:14 Tylenol PO 1,000 mg Q6H PRN Administration Mild Pain (1-3) Acetaminophen/Codeine Phosphate 1 tab 03/13/19 02:37 03/16/19 16:35 Tylenol #3 PO 1 tab Q8H PRN Administration Mild Pain (1-3) Albuterol/Ipratropium 3 ml 03/13/19 02:37 03/17/19 18:55 Duoneb NEB Not Given X9IA-TH ALINE Aspirin 81 mg 03/13/19 09:00 03/17/19 07:42 Aspirin Chewable PO Not Given DAILY ALINE Benzonatate 100 mg 03/13/19 02:37 03/14/19 21:00 Tessalon PO 100 mg Q6H PRN Administration Cough Clopidogrel Bisulfate 75 mg 03/13/19 21:00 03/16/19 20:18 Plavix PO 75 mg HS ALINE Administration Famotidine 20 mg 03/13/19 09:00 03/17/19 07:42 Pepcid PO Not Given QAM ALINE Fentanyl 50 mcg 03/17/19 16:30 03/17/19 17:41 Duragesic TD 50 mcg Q3D ALINE Administration Ferrous Sulfate 325 mg 03/13/19 08:00 03/17/19 07:41 Feosol PO Not Given QAM-WM ALINE Guaifenesin 200 mg 03/13/19 02:37 03/13/19 20:54 Robitussin Sf PO 200 mg Q4H PRN Administration Cough Valproic Acid 250 mg/ Sodium 102.5 mls @ 100 mls/hr 03/17/19 09:00 03/17/19 09:02 Chloride IVPB 03/19/19 22:02 102.5 mls BID ALINE Administration Sodium Bicarbonate 150 meq/ 1,150 mls @ 125 mls/hr 03/17/19 10:15 03/17/19 11 :52 Dextrose/Water IV 1,150 mls INF ALINE Administration Ceftriaxone Sodium 2 gm/ 100 mls @ 200 mls/hr 03/17/19 17:00 03/17/19 17:41 Sodium Chloride IVPB 100 mls 1700 ALINE Administration Isosorbide Mononitrate 30 mg 03/13/19 09:00 03/17/19 07:42 Imdur Er PO Not Given DAILY [facility] Metoprolol Succinate 25 mg 03/13/19 09:00 03/17/19 07:42 Toprol Xl PO Not Given DAILY [facility] Mometasone Furoate/Formoterol Fumar 2 puff 03/13/19 06:30 03/17/19 18:55 Dulera 200 Mcg/5 Mcg Inhaler INH Not Given BID-RT ALINE Prednisone 5 mg 03/17/19 08:00 03/17/19 07:41 Prednisone PO Not Given QAM-WM [facility] Sodium Chloride 10 ml 03/13/19 09:00 03/17/19 08:58 Flush - Normal Saline IVF 10 ml Q12HR ALINE Administration - Exam General Appearance: awake alert General - other findings: confused and agitated Eye: anicteric sclera ENT: normocephalic atraumatic, dry oral mucosa Heart: RRR Respiratory: tachypneic Respiratory - other findings: diminished breath sound with prolonged expiration. respiratory distress Gastrointestinal: soft, non-tender, non-distended, normal bowel sounds Extremities: no cyanosis, no edema Neurological - other findings: confused and agitated. Hosp A/P (1) ROLA (acute kidney injury) Code(s): N17.9 - ACUTE KIDNEY FAILURE, UNSPECIFIED Status: Acute (2) Acute metabolic encephalopathy Code(s): G93.41 - METABOLIC ENCEPHALOPATHY Status: Acute (3) E coli bacteremia Code(s): R78.81 - BACTEREMIA Status: Acute (4) Sepsis Code(s): A41.9 - SEPSIS, UNSPECIFIED ORGANISM Status: Acute (5) COPD exacerbation Code(s): J44.1 - CHRONIC OBSTRUCTIVE PULMONARY DISEASE W (ACUTE) EXACERBATION Status: Acute (6) Pneumonia Code(s): J18.9 - PNEUMONIA, UNSPECIFIED ORGANISM Status: Acute (7) Elevated troponin Code(s): R79.89 - OTHER SPECIFIED ABNORMAL FINDINGS OF BLOOD CHEMISTRY Status : Acute (8) Metabolic acidosis Code(s): E87.2 - ACIDOSIS Status: Acute (9) Physical deconditioning Code(s): R53.81 - OTHER MALAISE Status: Chronic (10) Hyponatremia Code(s): E87.1 - HYPO-OSMOLALITY AND HYPONATREMIA Status: Acute (11) CAD (coronary artery disease) Code(s): I25.10 - ATHSCL HEART DISEASE OF [place] CORONARY ARTERY W/O ANG PCTRS Status: Chronic (12) Chronic diastolic heart failure Code(s): I50.32 - CHRONIC DIASTOLIC (CONGESTIVE) HEART FAILURE Status: Chronic (13) Hypertension Code(s): I10 - ESSENTIAL (PRIMARY) HYPERTENSION Status: Chronic Qualifiers: (14) Protein-calorie malnutrition, moderate Code(s): E44.0 - MODERATE PROTEIN-CALORIE MALNUTRITION Status: Chronic (15) Tobacco abuse Code(s): Z72.0 - TOBACCO USE Status: Chronic (16) Escherichia coli urinary tract infection Code(s): N39.0 - URINARY TRACT INFECTION, SITE NOT SPECIFIED; B96.20 - UNSP ESCHERICHIA COLI THE CAUSE OF DISEASES CLASSD ELSWHR Status: Acute (17) Anxiety Code(s): F41.9 - ANXIETY DISORDER, UNSPECIFIED Status: Acute (18) Hypokalemia Code(s): E87.6 - HYPOKALEMIA Status: Acute (19) Acute narcotic withdrawal with delirium Code(s): F11.23 - OPIOID DEPENDENCE WITH WITHDRAWAL; F11.288 - OPIOID DEPENDENCE WITH OTHER OPIOID-INDUCED DISORDER Status: Acute (20) Volume depletion Code(s): E86.9 - VOLUME DEPLETION, UNSPECIFIED Status: Acute - Plan Change to plain sodium bicarbonate due to worsening metabolicc acidosis Start on narcotic for presumed narcotic withdrawal Continue antibiotic Supportive care to continue NPO for till mental status improves Get ABG to access respiratory status
[2019-03-17] MEDS: Clopidogrel Bisulfate 75 MG TAB PO SCH (22:12)
--- NOTE | 2019-03-17 22:59 | CON ---
DATE OF CONSULTATION: 03/17/2019 REASON FOR CONSULTATION: Sepsis bacteremia, and delirium. HISTORY OF PRESENT ILLNESS: An 83-year-old with a history of chronic smoking two packs per day for many years, coronary artery disease with prior stenting, peripheral vascular disease. She had an endovascular repair of abdominal aortic aneurysm in November 2018. In December 2018, she was admitted with near syncopal event. At the beginning of this month, she fell and had a comminuted pelvic fracture, and then on March 12, she was admitted because of development of fever and tachycardia. She had been home and kind of bed-bound at home because of her pelvic fracture. On arrival, she was confused and had a pelvic pain, which was throbbing in nature. She also had abdominal pain described. The initial vital signs are BP 115/51, pulse 101, respirations 22, and a temperature of 104.5. The initial impression was severe sepsis without septic shock and the sepsis was presumably due to pneumonia, but the chest x-ray evidence was not conclusive. She did have a procalcitonin, which was very elevated and white cell count was only at 9.9 with 91% neutrophils, platelets of 338. The creatinine was 2.79, with a baseline of 1.09 at the beginning of February. She was given cefepime and levofloxacin. Urinalysis with greater than 50 wbc's. She did have 14% bands subsequent day. Urine culture on March 13 with E coli, which was broadly susceptible to various antimicrobials. The day before she had one set of blood cultures positive for E coli with the same susceptibility profile as well as Streptococcus mitis/oralis. Over the past few days, the patient has remained delirious and had to be transferred to the [facility]. Dr. Stoddard was consulted. She had a CT of chest, abdomen, and pelvis on March 12, which showed stable aortic aneurysm, no urinary tract calculi or obstruction, and colonic diverticulosis. This was a noncontrast study because of her renal function. Followup chest x-ray from yesterday with mild improvement in pulmonary edema. Currently, Ms. Mckinley is obtunded. Her eyes are closed. She is very agitated from time to time and is under sedation with valproic acid and p.r.n. fentanyl. She has not had diarrhea. PAST MEDICAL HISTORY: Abdominal aortic aneurysm repair, endovascular, chronic smoking, coronary artery disease with prior intervention, peripheral vascular disease, diastolic CHF, hypertension, pelvic fracture. She had an appendectomy, which was ruptured in the past, prior hysterectomy as well, and bilateral hip arthroplasty. ALLERGIES: ALENDRONATE, CITALOPRAM, ULTRAM, SULFA DRUGS. FAMILY HISTORY: CVA, and ND. SOCIAL HISTORY: Current smoker. Lives in [place]. CURRENT MEDICATIONS: 1. Famotidine. 2. Meropenem. 3. Omnicef. 4. Valproic acid. 5. IV fluids. 6. Fentanyl. 7. Benzonatate. PHYSICAL EXAMINATION: VITAL SIGNS: T-max 99, blood pressure 125/58, pulse 102, respiratory rate ranging from 18 to 30. SKIN: She has a peripheral IV access and an indwelling [place] catheter, which has been just recently removed. She now is voiding in the diaper. No lymphadenopathy. HEENT: She keeps her eyes closed. Pupils are pinpoint. Sclerae white. Oral cavity still with quite a few remaining teeth with quite a bit of decay. Dry oral mucosa. NECK: Supple. No jugular vein distention. LUNGS: Symmetric air entry. Faint basilar crackles. HEART: S1-S2, regular rate. ABDOMEN: Soft. No guarding. Bowel sounds are diminished. No bladder distention. EXTREMITIES: She is able to move all 4 extremities, but does not follow commands. No edema. Pulses 1+ in dorsalis pedis. Plantar responses are flexor. NEUROLOGIC: Unable to test her mental state, but she is obviously obtunded and delirious. LABORATORY DATA: White cell count is up to 15, and hemoglobin 7.9, platelets 324 with 89% neutrophils, 1% bands. PH 7.38, pCO2 33, PO2 57. Sodium 129, creatinine 3.48, phosphorus 6.0. Liver profile normal. Albumin 2.8. Urine cultures and blood cultures noted above. ASSESSMENT: 1. Chronic smoking. 2. Chronic obstructive pulmonary disease. 3. Recent pelvic fracture with bedridden state. 4. Prior intravascular abdominal aortic aneurysm repair a few months ago. 5. Sepsis syndrome with polymicrobial bacteremia 1/2 sets and a positive urine culture with abnormal urinalysis. 6. Delirium. 7. Acute renal failure. DISCUSSION: The patient has acute renal failure associated with the sepsis. The culprit here is either a urinary tract or an alternate inflammatory process intraabdominal, which has not yet been identified due to the fact that abdominal CT was done without contrast enhancement. The organism in the urinary tract is the same one as the one in the blood, but the Streptococcus mitis is more typical of gastrointestinal tract and that was not isolated from the bladder. It is possible that she had this Streptococcus mitis in the bladder and was overgrown by the E coli, but the other possibility is that she has inflammatory process within the abdominal peritoneal cavity or extraperitoneal area. She does have hip replacements and we will have to follow up on her symptoms related to the hips. Her respiratory tract infection does not appear likely. We will switch her to Rocephin, discontinue meropenem and discontinue Omnicef. Followup renal function and see if we can re-image her according to clinical progress to try to pinpoint exactly what the origin of the polymicrobial bacteremia. Job ID: [id number]
[2019-03-18] MEDS: Fentanyl 100 MCG/2 ML VIAL SLOW IVP PRN ×2 (02:06→09:14)
[2019-03-18 05:53] LABS: ALT (SGPT) 28 U/L (8-55); AST (SGOT) 31 U/L (5-34); Alkaline Phosphatase 74 U/L (40-110); Anion Gap 18 mmol/L (10-20); BUN (Urea Nitrogen) 70 mg/dL (9.8-20.1); Bilirubin, Total 0.5 mg/dL (0.2-1.2); Calc. Creatinine Clearance 17 mL/min (70-130); Calcium 8.1 mg/dL (7.8-10.44); Carbon Dioxide 28 mmol/L (23-31); Chloride 108 mmol/L (98-107); Estimated GFR-MDRD 15; Globulin 3.1 g/dL (2.4-3.5); Glucose 173 mg/dL (83-110); Potassium 4.2 mmol/L (3.5-5.1); Protein, Total 6.1 g/dL (6.0-8.3); Sodium 150 mmol/L (136-145)
[2019-03-18 05:57] LABS: #Eosinphils 0.1 thou/uL (0.0-0.7); #Lymphocytes 0.8 thou/uL (1.20-3.40); #Monocytes 0.9 thou/uL (0.11-0.59); #Neutrophils 10.1 thou/uL (1.40-6.50); %Eosinophils 0.5 % (0.0-10.0); %Lymphocytes 6.8 % (21.0-51.0); %Monocytes 7.1 % (0.0-10.0); %Neutrophils 85.6 % (42.0-75.0); Hypochromia MODERATE=16-30 cells (100X) (0-5/hpf); MDiff Complete? YES; Mean Corpuscular HGB CONC 32.6 g/dL (32.0-36.0); Mean Corpuscular Hemoglobin 26.7 pg (27.0-31.0); Mean Platelet Volume 8.4 fL (7.4-10.4); Platelet Count 388 thou/uL (130-400); Platelet Morphology Comment Appears Adequate; Target Cells MODERATE= 6-15 cells (100X) (0-1/hpf); White Blood Cell (WBC) Count 11.8 thou/uL (4.8-10.8)
[2019-03-18] MEDS: Mometasone/Formoterol 120 PUFF INHALER INH SCH ×2 (06:56→19:20)
[2019-03-18] MEDS ORDERED: Lactated Ringer's 1,000 ML IV SCH (07:45)
[2019-03-18] MEDS ORDERED: Dextrose 5% in Water 1,000 ML IV SCH (07:45)
--- NOTE | 2019-03-18 08:43 | PRG ---
DATE OF SERVICE: 03/18/2019 SUBJECTIVE: The patient remains encephalopathic. It is thought that she might be having narcotic withdrawal. OBJECTIVE: VITAL SIGNS: Temperature 98.0, pulse 112, blood pressure 157/99, O2 saturation 97%. LUNGS: Limited exam shows clear lung prado. HEART: Slightly tachycardic heart rate. ABDOMEN: Soft. EXTREMITIES: Without edema. LABORATORY DATA: Sodium 150, potassium 4.2, BUN 70, creatinine 2.8, bicarbonate 28. White blood cell count 11.8, hematocrit 24.6, and platelet count 388. ASSESSMENT: 1. Encephalopathy. 2. Possible narcotic withdrawal. 3. Hyponatremia. PLAN: Continue supportive care. She is currently receiving a fentanyl patch. She should receive her last several doses of Depakote today, which may help with manic symptoms. Prognosis remains guarded. Job ID: [id number]
[2019-03-18] MEDS: Ferrous Sulfate 325 MG TAB PO SCH (08:53)
[2019-03-18] MEDS: predniSONE 5 MG TAB PO SCH (08:53)
[2019-03-18] MEDS: Aspirin Chewable 81 MG TAB PO SCH (08:54)
[2019-03-18] MEDS: Famotidine 20 MG TAB PO SCH (08:54)
[2019-03-18] MEDS: Isosorbide Mononitrate (ER) 30 MG TAB PO SCH (08:54)
[2019-03-18] MEDS: Valproate Sodium 250 MG in Sodium Chloride 0.9% 100 ML IVPB SCH ×2 (09:09→22:52)
[2019-03-18] MEDS ORDERED: Haloperidol Lactate 5 MG/ML VIAL SLOW IVP PRN (11:14)
[2019-03-18] MEDS ORDERED: methylPREDNISolone Sod Succ 40 MG VIAL IVP SCH ×2 (11:15→12:15)
--- NOTE | 2019-03-18 11:19 | PDOC.HOSPP ---
- Subjective Encounter Date: 03/18/19 Encounter Time: 11:17 Subjective: 83 y/o female with COPD, diastolic HF, CAD, recently discharged from hospital following treatment of right pelvic fracture due to fall/syncope, now readmitted after she was found by home health nurse to be febrile and in pains with generalized weakness. Further evaluation revealed tachycardia, temp of 105 , hyponatremia Rola and others. UA is suggestive of UTI and CXR showed bilateral interstitial prominence suggestive of pneumonitis or edema. She was started on IVF and broad spectrum antibiotics. Later developed confusion with agitation and restlessness which worsened and she was transfered to [facility]. Was started on narcotics for possible narcotic withdrawal. Still agitated and restless. - Objective Vital Signs & Weight: Vital Signs (12 hours) Temp Pulse Resp Pulse Ox 03/18/19 11:10 97.6 F 03/18/19 10:31 93 L 03/18/19 10:30 109 H 20 93 L 03/18/19 07:55 97 03/18/19 07:44 98.0 F 03/18/19 03:33 98.4 F 03/17/19 23:37 97.9 F Weight Admit Weight 153 lb 8 oz Weight 164 lb 1 oz Most Recent Monitor Data Heart Rate from ECG 112 NIBP 157/99 NIBP BP-Mean 118 Respiration from ECG 23 SpO2 87 I&O: 03/17/19 03/18/19 03/19/19 06:59 06:59 06:59 Intake Total 469 2830 Balance 469 2830 Result Diagrams: 03/18/19 05:19 03/18/19 05:19 Hospitalist ROS - Medication Medications: Active Medications Generic Name Dose Route Start Last Admin Trade Name Freq PRN Reason Stop Dose Admin Acetaminophen 1,000 mg 03/13/19 02:37 03/16/19 06:14 Tylenol PO 1,000 mg Q6H PRN Administration Mild Pain (1-3) Acetaminophen/Codeine Phosphate 1 tab 03/13/19 02:37 03/16/19 16:35 Tylenol #3 PO 1 tab Q8H PRN Administration Mild Pain (1-3) Albuterol/Ipratropium 3 ml 03/13/19 02:37 03/18/19 10:30 Duoneb NEB 3 ml [id number] ALINE Administration Aspirin 81 mg 03/13/19 09:00 03/18/19 08:54 Aspirin Chewable PO Not Given DAILY ALINE Benzonatate 100 mg 03/13/19 02:37 03/14/19 21:00 Tessalon PO 100 mg Q6H PRN Administration Cough Clopidogrel Bisulfate 75 mg 03/13/19 21:00 03/17/19 22:12 Plavix PO Not Given HS ALINE Famotidine 20 mg 03/13/19 09:00 03/18/19 08:54 Pepcid PO Not Given QAM ALINE Fentanyl 50 mcg 03/17/19 16:30 03/17/19 17:41 Duragesic TD 50 mcg Q3D ALINE Administration Fentanyl 25 mcg 03/17/19 16:30 03/18/19 09:14 Sublimaze SLOW IVP 25 mcg Q6H PRN Administration Agitation Ferrous Sulfate 325 mg 03/13/19 08:00 03/18/19 08:53 Feosol PO Not Given QAM-WM ALINE Guaifenesin 200 mg 03/13/19 02:37 03/13/19 20:54 Robitussin Sf PO 200 mg Q4H PRN Administration Cough Valproic Acid 250 mg/ Sodium 102.5 mls @ 100 mls/hr 03/17/19 09:00 03/18/19 09:09 Chloride IVPB 03/19/19 22:02 102.5 mls BID ALINE Administration Ceftriaxone Sodium 2 gm/ 100 mls @ 200 mls/hr 03/17/19 17:00 03/17/19 17:41 Sodium Chloride IVPB 100 mls 1700 ALINE Administration Dextrose/Water 1,000 mls @ 125 mls/hr 03/18/19 07:45 03/18/19 09:08 D5w IV 1,000 mls .Q8H ALINE Administration Isosorbide Mononitrate 30 mg 03/13/19 09:00 03/18/19 08:54 Imdur Er PO Not Given DAILY [facility] Metoprolol Succinate 25 mg 03/13/19 09:00 03/18/19 08:54 Toprol Xl PO Not Given DAILY [facility] Mometasone Furoate/Formoterol Fumar 2 puff 03/13/19 06:30 03/18/19 06:56 Dulera 200 Mcg/5 Mcg Inhaler INH Not Given BID-RT ALINE Prednisone 5 mg 03/17/19 08:00 03/18/19 08:53 Prednisone PO Not Given QAM-WM ALINE Sodium Chloride 10 ml 03/13/19 09:00 03/18/19 09:09 Flush - Normal Saline IVF 10 ml Q12HR ALINE Administration - Exam General - other findings: agitated and restless ENT: normocephalic atraumatic, dry oral mucosa Neck: supple, no JVD Heart: RRR Respiratory - other findings: fair air entry with prolonged expiration and few rhonchi Gastrointestinal: soft, non-tender, non-distended, no splenomegaly Extremities: no edema Neurological: cranial nerve grossly intact Neurological - other findings: confused, agitated and restless Hosp A/P (1) ROLA (acute kidney injury) Code(s): N17.9 - ACUTE KIDNEY FAILURE, UNSPECIFIED Status: Acute (2) Acute metabolic encephalopathy Code(s): G93.41 - METABOLIC ENCEPHALOPATHY Status: Acute (3) E coli bacteremia Code(s): R78.81 - BACTEREMIA Status: Acute (4) Sepsis Code(s): A41.9 - SEPSIS, UNSPECIFIED ORGANISM Status: Acute (5) COPD exacerbation Code(s): J44.1 - CHRONIC OBSTRUCTIVE PULMONARY DISEASE W (ACUTE) EXACERBATION Status: Acute (6) Pneumonia Code(s): J18.9 - PNEUMONIA, UNSPECIFIED ORGANISM Status: Acute (7) Elevated troponin Code(s): R79.89 - OTHER SPECIFIED ABNORMAL FINDINGS OF BLOOD CHEMISTRY Status : Acute (8) Metabolic acidosis Code(s): E87.2 - ACIDOSIS Status: Acute (9) Physical deconditioning Code(s): R53.81 - OTHER MALAISE Status: Chronic (10) Hyponatremia Code(s): E87.1 - HYPO-OSMOLALITY AND HYPONATREMIA Status: Acute (11) CAD (coronary artery disease) Code(s): I25.10 - ATHSCL HEART DISEASE OF [place] CORONARY ARTERY W/O ANG PCTRS Status: Chronic (12) Chronic diastolic heart failure Code(s): I50.32 - CHRONIC DIASTOLIC (CONGESTIVE) HEART FAILURE Status: Chronic (13) Hypertension Code(s): I10 - ESSENTIAL (PRIMARY) HYPERTENSION Status: Chronic Qualifiers: (14) Protein-calorie malnutrition, moderate Code(s): E44.0 - MODERATE PROTEIN-CALORIE MALNUTRITION Status: Chronic (15) Tobacco abuse Code(s): Z72.0 - TOBACCO USE Status: Chronic (16) Escherichia coli urinary tract infection Code(s): N39.0 - URINARY TRACT INFECTION, SITE NOT SPECIFIED; B96.20 - UNSP ESCHERICHIA COLI THE CAUSE OF DISEASES CLASSD ELSWHR Status: Acute (17) Anxiety Code(s): F41.9 - ANXIETY DISORDER, UNSPECIFIED Status: Acute (18) Hypokalemia Code(s): E87.6 - HYPOKALEMIA Status: Acute (19) Acute narcotic withdrawal with delirium Code(s): F11.23 - OPIOID DEPENDENCE WITH WITHDRAWAL; F11.288 - OPIOID DEPENDENCE WITH OTHER OPIOID-INDUCED DISORDER Status: Acute (20) Volume depletion Code(s): E86.9 - VOLUME DEPLETION, UNSPECIFIED Status: Acute (21) Acute hypernatremia Code(s): E87.0 - HYPEROSMOLALITY AND HYPERNATREMIA Status: Acute - Plan Start d5w at 150 for acute hypernatremia. Substitute Sodium bicarb with LR. Monitor electrolytes. Start haldol IVP prn Continue fentanyl for possible narcotic withdrawal. Continue antibiotic Supportive care to continue NPO for till mental status improves
[2019-03-18] MEDS ORDERED: Bacteriostatic Water 30 ML VIAL FS PRN (12:14)
--- NOTE | 2019-03-18 13:24 | PDOC.PALPN ---
Palliative Progress Note - Subjective Labored respirations, agitated, confused, does not open eyes. - Objective Vital Signs: Vital Signs - Most Recent Temp Pulse Resp BP Pulse Ox 97.6 F 109 H 20 115/57 L 93 L 03/18/19 11:10 03/18/19 10:30 03/18/19 10:30 03/16/19 08:00 03/18/19 10:31 - Physical Exam Constitutional: emaciated, encephalitic, moderate distress HEENT: moist MMs, poor dentition Respiratory: accessory muscle use, diminished lung sound, labored respirations, wheezing present Cardiovascular: irregular Gastrointestinal: positive bowel sounds, incontinent Genitourinary: incontinent Musculoskeletal: no edema Neurology: moves all 4 limbs Skin: bruising, fragile Deviation from normal: confused, aggitated - Assessment (1) Palliative care encounter Code(s): Z51.5 - ENCOUNTER FOR PALLIATIVE CARE Current Visit: Yes Status: Acute (2) Acute metabolic encephalopathy Code(s): G93.41 - METABOLIC ENCEPHALOPATHY Current Visit: Yes Status: Acute (3) Anxiety Code(s): F41.9 - ANXIETY DISORDER, UNSPECIFIED Current Visit: Yes Status: Acute (4) COPD exacerbation Code(s): J44.1 - CHRONIC OBSTRUCTIVE PULMONARY DISEASE W (ACUTE) EXACERBATION Current Visit: Yes Status: Acute (5) Chronic diastolic heart failure Code(s): I50.32 - CHRONIC DIASTOLIC (CONGESTIVE) HEART FAILURE Current Visit: Yes Status: Chronic (6) Physical deconditioning Code(s): R53.81 - OTHER MALAISE Current Visit: Yes Status: Chronic (7) Tobacco abuse Code(s): Z72.0 - TOBACCO USE Current Visit: Yes Status: Chronic - Plan Plan: Recommended this morning to consider Haldol to better manage agitation. Spoke with patient son at length over the phone. [phone] Son states that his mother in the past has been a DNAR and would not want resuscitative measures performed. He initiated conversation in relation to Hospice. He is to be here tomorrow at 9:30 am for discussion in relation to goals of care. States it is difficult to see her "this way". Education in relation to current disease processes / therapeutic and supportive listening. [75] minutes spent on this encounter with >50% of the time in counseling and coordination of care. - ROS Non Response: due to mental status
[2019-03-18] MEDS: Dextrose 5% in Water 1,000 ML IV SCH ×2 (13:41→19:54)
[2019-03-18] MEDS ORDERED: Haloperidol Lactate 5 MG/ML VIAL SLOW IVP SCH (14:15)
[2019-03-18 14:44] LABS: Calcium 8.2 mg/dL (7.8-10.44); Chloride 108 mmol/L (98-107); Glucose 177 mg/dL (83-110); Potassium 4.4 mmol/L (3.5-5.1); Sodium 149 mmol/L (136-145)
[2019-03-18 14:49] LABS: Anion Gap 18 mmol/L (10-20); BUN (Urea Nitrogen) 66 mg/dL (9.8-20.1); Calc. Creatinine Clearance 19 mL/min (70-130); Carbon Dioxide 27 mmol/L (23-31); Estimated GFR-MDRD 16
[2019-03-18] MEDS: cefTRIAXone\\ROCEPHIN 2 GM in Sodium Chloride 0.9% 100 ML IVPB SCH (19:54)
[2019-03-18] MEDS ORDERED: Sterile Water 10 ML VIAL FS PRN (20:25)
[2019-03-18] MEDS ORDERED: Ziprasidone 20 MG VIAL IM SCH (20:30)
[2019-03-18 20:56] LABS: Sodium 151 mmol/L (136-145)
[2019-03-18] MEDS: Clopidogrel Bisulfate 75 MG TAB PO SCH (22:48)
[2019-03-19] MEDS: Labetalol HCl 100 MG/20 ML VIAL SLOW IVP PRN ×2 (00:45→07:08)
[2019-03-19] MEDS ORDERED: Lorazepam 2 MG/ML VIAL SLOW IVP SCH (01:15)
[2019-03-19] MEDS: Dextrose 5% in Water 1,000 ML IV SCH ×3 (01:41→14:50)
[2019-03-19 05:02] LABS: ALT (SGPT) 447 U/L (8-55); AST (SGOT) 1068 U/L (5-34); Albumin 2.9 g/dL (3.4-4.8); Alkaline Phosphatase 71 U/L (40-110); Anion Gap 12 mmol/L (10-20); BUN (Urea Nitrogen) 63 mg/dL (9.8-20.1); Bilirubin, Total 0.5 mg/dL (0.2-1.2); Calc. Creatinine Clearance 17 mL/min (70-130); Calcium 7.8 mg/dL (7.8-10.44); Carbon Dioxide 32 mmol/L (23-31); Chloride 104 mmol/L (98-107); Estimated GFR-MDRD 19; Globulin 2.9 g/dL (2.4-3.5); Glucose 254 mg/dL (83-110); Potassium 3.2 mmol/L (3.5-5.1); Protein, Total 5.8 g/dL (6.0-8.3); Sodium 145 mmol/L (136-145)
[2019-03-19 05:24] LABS: #Lymphocytes 0.5 thou/uL (1.20-3.40); #Monocytes 0.2 thou/uL (0.11-0.59); #Neutrophils 5.9 thou/uL (1.40-6.50); %Eosinophils 0.5 % (0.0-10.0); %Monocytes 3.4 % (0.0-10.0); %Neutrophils 89.2 % (42.0-75.0); Elliptocytes SLIGHT = 2-5 cells (100X) (0-1/hpf); Hemoglobin 7.3 g/dL (12.0-16.0); Hypochromia SLIGHT = 6-15 cells (100X) (0-5/hpf); MDiff Complete? YES; Mean Corpuscular HGB CONC 31.9 g/dL (32.0-36.0); Mean Corpuscular Hemoglobin 26.5 pg (27.0-31.0); Mean Corpuscular Volume 83.2 fL (78.0-98.0); Mean Platelet Volume 8.7 fL (7.4-10.4); Platelet Count 303 thou/uL (130-400); RBC Distribution Width 18.3 % (11.5-14.5); Red Blood Cell (RBC) Count 2.77 mill/uL (4.20-5.40); Target Cells SLIGHT = 2-5 cells (100X) (0-1/hpf); White Blood Cell (WBC) Count 6.6 thou/uL (4.8-10.8)
[2019-03-19 07:10] VITALS: BP 195/100
[2019-03-19] MEDS: Mometasone/Formoterol 120 PUFF INHALER INH SCH (07:36)
--- NOTE | 2019-03-19 07:46 | PRG ---
DATE OF SERVICE: 03/19/2019 SUBJECTIVE: This patient was brought to the critical care unit yesterday afternoon for the purpose of starting Precedex to see if that would help with her encephalopathy/diego type symptoms. Unfortunately, it does not help much. She has still had intermittent problems overnight. She required some benzodiazepines and Geodon. She continues to be grossly encephalopathic this morning. OBJECTIVE: VITAL SIGNS: Temperature is 96.5, pulse is 67, blood pressure is 195/100, O2 saturation in the 90s on nasal cannula. GENERAL: She is disoriented. She does not follow any commands. HEENT: Remarkable for pinpoint pupils. NECK: No adenopathy or JVD. CHEST: Fairly clear. CARDIAC: S1, S2. Regular. ABDOMEN: Soft. EXTREMITIES: No edema. LABORATORY DATA: White blood cell count 6.6, hematocrit 23, platelet count 303. Sodium 145, potassium 3.2, chloride 104, CO2 of 32, BUN 63, creatinine 2.4, glucose 254. AST 1068, ALT 447. ASSESSMENT: Encephalopathy, etiology undetermined. The patient has not improved despite continued aggressive treatment with substances such as narcotics for potential narcotic withdrawal, Depakote for diego symptoms, and Ativan/Geodon. The patient is DNR, which limits our options in terms of intubation and deeper IV sedation. All that given, her prognosis seems relatively poor. I would try to minimize any extra medication that is not necessary. Continue IV fluid resuscitation. Check ammonia level given the elevated transaminases. We will also hold any acetaminophen preparations given her elevated LFTs. Job ID: [id number]
[2019-03-19] MEDS: predniSONE 5 MG TAB PO SCH (08:57)
[2019-03-19] MEDS: Ferrous Sulfate 325 MG TAB PO SCH (08:57)
[2019-03-19] MEDS: Aspirin Chewable 81 MG TAB PO SCH (08:57)
[2019-03-19] MEDS: Isosorbide Mononitrate (ER) 30 MG TAB PO SCH (08:58)
[2019-03-19] MEDS: Famotidine 20 MG TAB PO SCH (08:58)
[2019-03-19] MEDS ORDERED: methylPREDNISolone Sod Succ 40 MG VIAL IVP SCH ×2 (09:00)
[2019-03-19] MEDS: Valproate Sodium 250 MG in Sodium Chloride 0.9% 100 ML IVPB SCH (09:30)
[2019-03-19] MEDS: Lorazepam 2 MG/ML VIAL SLOW IVP PRN ×2 (09:46→15:28)
--- NOTE | 2019-03-19 10:12 | ULT ---
ULTRASOUND GALLBLADDER RIGHT UPPER QUADRANT: CLINICAL HISTORY: Abnormal liver function tests. COMPARISON: None. FINDINGS: Pancreas: Main pancreatic duct is dilated measuring 0.4 cm. Visualized pancreas has a normal echotext ure. Liver:Normal cortical echotexture. Contour of the hepatic margin is maintained. Right hepatic lobe me asures 17.2 cm. No obvious intrahepatic biliary dilatation or hepatic masses. Gallbladder: Limited evaluation. No sonographic evidence of cholelithiasis, gallbladder wall thickeni ng or pericholecystic fluid. Augustin's sign:Not commented upon. Portal Vein: Patent. Appropriate directional flow. Bile ducts: Common bile duct diameter is 0.5 cm. Right kidney: No hydronephrosis. Right kidney measures 4.6 x 10.4 x 5.3 cm in length. Small right sincere al cyst measuring 1.7 x 2.4 x 1.8 cm. Incidental right pleural effusion is reported. IMPRESSION: 1. Dilatation of the main pancreatic duct. 2. Limited evaluation of the gallbladder. 3. Further evaluation with MRCP may be beneficial. Transcribed Date/Time: 03/19/2019 10:15 AM
[2019-03-19] MEDS: Lactated Ringer's 1,000 ML IV SCH ×2 (10:29→12:42)
[2019-03-19 12:49] VITALS: TEMP 97
--- NOTE | 2019-03-19 12:59 | PDOC.PALF ---
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 He states his mother was always busy. Also states that she smoked 2-3 packs of cigarettes a day and overused Tylenol with codeine. He states he has had to withdraw some in the past secondary to his mothers continued use of medication and smoking. States that in the past his mother has been a DNAR and that she has stated that she would not want to " exist and lie around and not be able to do anything". Goals of Care: Place NG for feeding so patient can receive nutrition Wait through weekend to see how his mother is progressing. Does not believe she would want a PEG Palliative Care to continue to support patient and family and revisit goals of care as needed in line with disease trajectory Summary: As stated above Total Time Spent with Family: 60
[2019-03-19 13:20] VITALS: BMI 22.3
--- NOTE | 2019-03-19 15:52 | PRG ---
DATE OF SERVICE: 03/18/2019 SUBJECTIVE: The patient was seen and examined. She was thrashing around. Noted with the following vital signs. OBJECTIVE: VITAL SIGNS: Afebrile, heart rate of 81 to 120, blood pressure 180/90, O2 saturation of 92% on 4 L. HEENT: Unremarkable. CARDIOVASCULAR: First and second heart sounds were heard. RESPIRATORY: Clear to auscultation. DIGESTIVE: Revealed a benign abdomen. EXTREMITIES: No peripheral edema. SKIN: No new gross rash. LYMPHATICS: No peripheral lymphadenopathy. LABORATORY INVESTIGATION: Showed a of 149 to 151. Creatinine down to 2.78. IMPRESSION: 1. Severe mental status change, query cause. 2. Maphp-oe-zecycfn kidney disease, improving. 3. Metabolic acidosis, resolved. 4. Hypernatremia. PLAN: 1. Increase free water intake to 200 mL per hour of dextrose water. 2. Continue renal supportive measures. 3. Further management will be dependent on the clinical course. Job ID: [id number]
--- NOTE | 2019-03-19 16:01 | PRG ---
DATE OF SERVICE: 03/19/2019 SUBJECTIVE: The patient is seen and examined. Noted with the following vital signs. Still very confused. OBJECTIVE: VITAL SIGNS: Blood pressure 195/100, pulse of 67, and O2 saturation of 93% on 4 L. HEENT: Unremarkable. CARDIOVASCULAR SYSTEM: First and second heart sounds were heard. RESPIRATORY SYSTEM: Clear to auscultation. DIGESTIVE SYSTEM: Revealed a benign abdomen. EXTREMITIES: No peripheral edema. SKIN: No new gross rash. LYMPHATICS: No peripheral lymphadenopathy. IMPRESSION: 1. Hyponatremia, which seems to have improved. 2. Severe mental status change, still very agitated. 3. Acute on chronic kidney disease, continues to improve. 4. Metabolic acidosis, resolved. PLAN: 1. Continue to monitor the electrolytes sodium level to avoid precipitating fluid overload/ . 2. Further management will be dependent on the clinical course. Job ID: [id number]
--- NOTE | 2019-03-19 17:09 | PDOC.HOSPP ---
- Subjective Encounter Date: 03/19/19 Encounter Time: 14:07 Subjective: 83 y/o female with COPD, diastolic HF, CAD, recently discharged from hospital following treatment of right pelvic fracture due to fall/syncope, now readmitted after she was found by home health nurse to be febrile and in pains with generalized weakness. Further evaluation revealed tachycardia, temp of 105 , hyponatremia Rola and others. UA is suggestive of UTI and CXR showed bilateral interstitial prominence suggestive of pneumonitis or edema. She was started on IVF and broad spectrum antibiotics. Later developed confusion with agitation and restlessness which worsened and she was transfered to IMCU. Was started on narcotics for possible narcotic withdrawal. with no sustained improvement and was subsequently transfered to ICU and started on precedex. Still agitated and later got ativan which made her calm. patient was calm and sleeping during my visit. - Objective Vital Signs & Weight: Vital Signs (12 hours) Temp Pulse Resp BP Pulse Ox 03/19/19 14:14 70 14 95 03/19/19 12:00 97 F L 03/19/19 10:32 65 13 92 L 03/19/19 08:00 97 F L 91 L 03/19/19 07:35 67 14 93 L 03/19/19 07:08 76 195/100 H Weight Admit Weight 153 lb 8 oz Weight 134 lb 4.184 oz Most Recent Monitor Data Heart Rate from ECG 45 NIBP 40/31 NIBP BP-Mean 34 Respiration from ECG 11 SpO2 79 I&O: 03/18/19 03/19/19 03/20/19 06:59 06:59 06:59 Intake Total 2830 2041 2164 Output Total 3 0 Balance 2830 8 2164 Result Diagrams: 03/19/19 04:01 03/19/19 04:01 Hospitalist ROS - Medication Medications: Active Medications Generic Name Dose Route Start Last Admin Trade Name Freq PRN Reason Stop Dose Admin Albuterol/Ipratropium 3 ml 03/13/19 02:37 03/19/19 14:14 Duoneb NEB 3 ml [id number] ALINE Administration Aspirin 81 mg 03/13/19 09:00 03/19/19 08:57 Aspirin Chewable PO Not Given DAILY ALINE Benzonatate 100 mg 03/13/19 02:37 03/14/19 21:00 Tessalon PO 100 mg Q6H PRN Administration Cough Clopidogrel Bisulfate 75 mg 03/13/19 21:00 03/18/19 22:48 Plavix PO Not Given HS ALINE Famotidine 20 mg 03/13/19 09:00 03/19/19 08:58 Pepcid PO Not Given QAM ALINE Fentanyl 50 mcg 03/17/19 16:30 03/17/19 17:41 Duragesic TD 50 mcg Q3D ALINE Administration Fentanyl 25 mcg 03/17/19 16:30 03/18/19 09:14 Sublimaze SLOW IVP 25 mcg Q6H PRN Administration Agitation Ferrous Sulfate 325 mg 03/13/19 08:00 03/19/19 08:57 Feosol PO Not Given QAM-WM ALINE Guaifenesin 200 mg 03/13/19 02:37 03/13/19 20:54 Robitussin Sf PO 200 mg Q4H PRN Administration Cough Haloperidol Lactate 2 mg 03/18/19 11:14 03/18/19 12:22 Haldol SLOW IVP 2 mg Q4H PRN Administration Agitation Hydralazine HCl 10 mg 03/13/19 02:37 03/18/19 22:55 Apresoline SLOW IVP 10 mg Q4H PRN Administration SBP > 180 and HR < 70 Valproic Acid 250 mg/ Sodium 102.5 mls @ 100 mls/hr 03/17/19 09:00 03/19/19 09:30 Chloride IVPB 03/19/19 22:02 102.5 mls BID ALINE Administration Ceftriaxone Sodium 2 gm/ 100 mls @ 200 mls/hr 03/17/19 17:00 03/18/19 19:54 Sodium Chloride IVPB 100 mls 1700 ALINE Administration Dextrose/Water 1,000 mls @ 200 mls/hr 03/18/19 13:30 03/19/19 14:50 D5w IV 1,000 mls .Q5H ALINE Administration Dexmedetomidine HCl 200 mcg/ 50 mls @ 0 mls/hr 03/18/19 14:15 03/19/19 02:00 Sodium Chloride IVPB 50 mls INF ALINE Administration Protocol Per Protocol Lactated Ringer's 1,000 mls @ 125 mls/hr 03/19/19 09:00 03/19/19 12:42 Lactated Ringer's IV 1,000 mls .Q8H ALINE Administration Isosorbide Mononitrate 30 mg 03/13/19 09:00 03/19/19 08:58 Imdur Er PO Not Given DAILY ALINE Labetalol HCl 10 mg 03/19/19 00:08 03/19/19 07:08 Normodyne SLOW IVP 10 mg Q4H PRN Administration SBP Greater Than 180 Lorazepam 1 mg 03/19/19 04:00 03/19/19 15:28 Ativan SLOW IVP 1 mg Q4H PRN Administration ANXIETY/AGITATION Methylprednisolone Sodium Succinate 40 mg 03/19/19 09:00 03/19/19 09:24 Solu-Medrol IVP 40 mg DAILY ALINE Administration Metoprolol Succinate 25 mg 03/13/19 09:00 03/19/19 09:25 Toprol Xl PO Not Given DAILY [facility] Mometasone Furoate/Formoterol Fumar 2 puff 03/13/19 06:30 03/19/19 07:36 Dulera 200 Mcg/5 Mcg Inhaler INH Not Given BID-RT [facility] Prednisone 5 mg 03/17/19 08:00 03/19/19 08:57 Prednisone PO Not Given QAM-WM [facility] Sodium Chloride 10 ml 03/13/19 09:00 03/19/19 09:25 Flush - Normal Saline IVF Not Given Q12HR ALINE - Exam General - other findings: sleeping ENT: normocephalic atraumatic, dry oral mucosa Heart: RRR Respiratory - other findings: fair air entry bilaterally with some transmitted sound Gastrointestinal: soft, non-distended, normal bowel sounds Extremities - other findings: bilateral had edema Neurological - other findings: sleeping. Hosp A/P (1) ROLA (acute kidney injury) Code(s): N17.9 - ACUTE KIDNEY FAILURE, UNSPECIFIED Status: Acute (2) Acute metabolic encephalopathy Code(s): G93.41 - METABOLIC ENCEPHALOPATHY Status: Acute (3) E coli bacteremia Code(s): R78.81 - BACTEREMIA Status: Acute (4) Sepsis Code(s): A41.9 - SEPSIS, UNSPECIFIED ORGANISM Status: Acute (5) COPD exacerbation Code(s): J44.1 - CHRONIC OBSTRUCTIVE PULMONARY DISEASE W (ACUTE) EXACERBATION Status: Acute (6) Pneumonia Code(s): J18.9 - PNEUMONIA, UNSPECIFIED ORGANISM Status: Acute (7) Elevated troponin Code(s): R79.89 - OTHER SPECIFIED ABNORMAL FINDINGS OF BLOOD CHEMISTRY Status : Acute (8) Metabolic acidosis Code(s): E87.2 - ACIDOSIS Status: Acute (9) Physical deconditioning Code(s): R53.81 - OTHER MALAISE Status: Chronic (10) Hyponatremia Code(s): E87.1 - HYPO-OSMOLALITY AND HYPONATREMIA Status: Acute (11) CAD (coronary artery disease) Code(s): I25.10 - ATHSCL HEART DISEASE OF [place] CORONARY ARTERY W/O ANG PCTRS Status: Chronic (12) Chronic diastolic heart failure Code(s): I50.32 - CHRONIC DIASTOLIC (CONGESTIVE) HEART FAILURE Status: Chronic (13) Hypertension Code(s): I10 - ESSENTIAL (PRIMARY) HYPERTENSION Status: Chronic Qualifiers: (14) Protein-calorie malnutrition, moderate Code(s): E44.0 - MODERATE PROTEIN-CALORIE MALNUTRITION Status: Chronic (15) Tobacco abuse Code(s): Z72.0 - TOBACCO USE Status: Chronic (16) Escherichia coli urinary tract infection Code(s): N39.0 - URINARY TRACT INFECTION, SITE NOT SPECIFIED; B96.20 - UNSP ESCHERICHIA COLI THE CAUSE OF DISEASES CLASSD ELSWHR Status: Acute (17) Anxiety Code(s): F41.9 - ANXIETY DISORDER, UNSPECIFIED Status: Acute (18) Hypokalemia Code(s): E87.6 - HYPOKALEMIA Status: Acute (19) Acute narcotic withdrawal with delirium Code(s): F11.23 - OPIOID DEPENDENCE WITH WITHDRAWAL; F11.288 - OPIOID DEPENDENCE WITH OTHER OPIOID-INDUCED DISORDER Status: Acute (20) Volume depletion Code(s): E86.9 - VOLUME DEPLETION, UNSPECIFIED Status: Acute (21) Acute hypernatremia Code(s): E87.0 - HYPEROSMOLALITY AND HYPERNATREMIA Status: Acute (22) Acute delirium Code(s): R41.0 - DISORIENTATION, UNSPECIFIED Status: Acute - Plan Add LR 125 to d5w at 2000 for both volume depletion and acute hypernatremia. Replete serum potassium Monitor electrolytes. Continue antibiotic Supportive care to continue NPO for until mental status improves. Continue suppiotive care. Insert NG tube for medications and tube feeding.
--- NOTE | 2019-03-21 12:47 | EKG ---
Test Reason : STAT Blood Pressure : / mmHG Vent. Rate : 103 BPM Atrial Rate : 103 BPM P-R Int : 142 ms QRS Dur : 080 ms QT Int : 342 ms P-R-T Axes : 057 030 041 degrees QTc Int : 448 ms Sinus tachycardia with occasional ventricular and supraventricular complexes Low voltage QRS Borderline ECG When compared with ECG of 12-MAR-2019 20:16, (Unconfirmed) Premature ventricular complexes are now Present Confirmed by BLAYNE GUIDO (2) on 03/21/2019 12:46:52 PM Referred By: SYLVESTER COLON Confirmed By:BLAYNE GUIDO
--- NOTE | 2019-03-22 13:47 | DIS ---
DATE OF ADMISSION: 03/12/2019 DATE OF DISCHARGE: 03/19/2019 PRIMARY CARE PHYSICIAN: Dr. Masood Murphy. DISCHARGE DIAGNOSES: 1. Acute metabolic encephalopathy. 2. Acute kidney injury. 3. Escherichia coli bacteremia. 4. Sepsis. 5. Chronic obstructive pulmonary disease exacerbation. 6. Pneumonia. 7. Elevated troponin. 8. Metabolic acidosis. 9. Hyponatremia. 10. Chronic diastolic heart failure. 11. Hypertension. 12. Moderate protein-calorie malnutrition. 13. Tobacco abuse disorder. 14. Escherichia coli urinary tract infection. 15. Anxiety disorder. 16. Hypokalemia. 17. Presumed possible acute narcotic withdrawal with delirium. 18. Volume depletion/dehydration. 19. Acute hyponatremia. 20. Acute delirium with agitation. 21. Hypokalemia. 22. Physical deconditioning. HOSPITAL COURSE: An 83-year-old female with known history of COPD, diastolic heart failure, coronary artery disease, who was recently discharged from the hospital following treatment for a right pelvic fracture due to fall/syncope, now readmitted after she was found at home by home health nurse to be febrile and in pains with generalized weakness. The patient was found to have tachycardia, febrile with temperature of 105, as well as hyponatremia, acute kidney injury. Further evaluation with urinalysis was suggestive of urinary tract infection, and chest x-ray showed bilateral interstitial prominence suggestive of pneumonitis or edema. The patient was felt to be volume contracted and was started on IV fluid and broad-spectrum antibiotics. She was also found to have acute kidney injury and severe metabolic acidosis. The patient later developed confusion with agitation and restlessness, which worsened subsequently and she was transferred to [facility]. She was treated with benzodiazepine and psychotropics with no improvement. the patient had been on narcotic analgesic at home, narcotic withdrawal was considered, and the patient was started on fentanyl patch as well as IV fentanyl, which provided transient improvement, but severe agitation and restlessness persisted. The patient was subsequently transferred to ICU and started on Precedex, but there was no significant improvement. Renal function showed some improvement, but the patient was found to have hyponatremia as well as other electrolyte derangements, which were addressed with IV fluid therapy. Palliative Care consult was obtained, and following discussion with son, the patient was made do not resuscitate. The patient was later observed to have bradycardia and later passed at 1618 hours on March 19 2019. Job ID: [id number]
== END 2019-03-19 19:40 | disposition expired | DRG 871 ==
LOC: ERS 18:58 → 2NO 22:25 → T4-A 03-15 11:07 → IMCU/EMU 03-16 10:41 → CCU 03-18 17:46
PROVIDERS: ADMIT Internal Medicine; ATTEND Internal Medicine
PROC: 30233N1 Transfusion of Nonautologous Red Blood Cells into Peripheral Vein, Percutaneous Approach (ICD-10-PCS; principal; 2019-03-12)
DX: A41.51 Sepsis due to Escherichia coli [E. coli] (principal); J15.9 Unspecified bacterial pneumonia; I21.A1 Myocardial infarction type 2; G92 Toxic encephalopathy; N17.0 Acute kidney failure with tubular necrosis; S32.9XXA Fracture of unspecified parts of lumbosacral spine and pelvis, initial encounter for closed fracture; J44.0 Chronic obstructive pulmonary disease with (acute) lower respiratory infection; I50.32 Chronic diastolic (congestive) heart failure; D62 Acute posthemorrhagic anemia; E87.1 Hypo-osmolality and hyponatremia; J44.1 Chronic obstructive pulmonary disease with (acute) exacerbation; E87.2 Acidosis; E44.0 Moderate protein-calorie malnutrition; I13.0 Hypertensive heart and chronic kidney disease with heart failure and stage 1 through stage 4 chronic kidney disease, or unspecified chronic kidney disease; N39.0 Urinary tract infection, site not specified; F11.288 Opioid dependence with other opioid-induced disorder; E87.0 Hyperosmolality and hypernatremia; Z51.5 Encounter for palliative care; Z66 Do not resuscitate; I73.9 Peripheral vascular disease, unspecified; K21.9 Gastro-esophageal reflux disease without esophagitis; F41.9 Anxiety disorder, unspecified; F17.210 Nicotine dependence, cigarettes, uncomplicated; I25.10 Atherosclerotic heart disease of native coronary artery without angina pectoris; Z96.643 Presence of artificial hip joint, bilateral; N18.3 Chronic kidney disease, stage 3 (moderate); E78.5 Hyperlipidemia, unspecified; B96.20 Unspecified Escherichia coli [E. coli] as the cause of diseases classified elsewhere; E87.6 Hypokalemia; D63.1 Anemia in chronic kidney disease; A40.9 Streptococcal sepsis, unspecified; E86.0 Dehydration; E83.39 Other disorders of phosphorus metabolism; E86.9 Volume depletion, unspecified; Z91.81 History of falling; Z95.5 Presence of coronary angioplasty implant and graft; Z90.710 Acquired absence of both cervix and uterus; Z90.49 Acquired absence of other specified parts of digestive tract; Z88.1 Allergy status to other antibiotic agents; Z88.5 Allergy status to narcotic agent; Z88.8 Allergy status to other drugs, medicaments and biological substances; Z79.52 Long term (current) use of systemic steroids; Z79.82 Long term (current) use of aspirin; Z79.899 Other long term (current) drug therapy; Z79.02 Long term (current) use of antithrombotics/antiplatelets; Z88.2 Allergy status to sulfonamides; Z68.22 Body mass index [BMI] 22.0-22.9, adult
CPT/HCPCS: 36415; 36430; 71045; 71250; 74177; 76705; 76770; 80053; 80069; 80307; 81001; 82140; 82274; 82550; 82553; 82570; 82728; 82805; 83540; 83550; 83605; 83735; 83880; 83930; 83935; 84145; 84156; 84300; 84484; 84540; 85007; 85025; 85027; 86850; 86900; 86901; 87077; 87086; 87186; 93005; 93010; 96374; J0360; J0692; J0696; J1630; J1956; J2060; J2185; J2270; J2358; J2920; J3010; J3486; J3490; J7070; J7512; J7620; P9016